=== PATIENT | male | born 1960 | race Caucasian/White ===

== ENCOUNTER 2019-03-30 16:16 | Emergency (ER) | payer OTHER ==
[2019-03-30 16:22] VITALS: TEMP 98.6
[2019-03-30] MEDS ORDERED: methylPREDNISolone SOD SUCCI 125 MG/2 ML VIAL IM ONE (16:32)
--- NOTE | 2019-03-30 17:02 | ED ---
Allergic Reaction HPI - General Chief complaint: Allergic Reaction Stated complaint: Allergic Reaction Time Seen by Provider: 03/30/19 16:24 Source: patient Mode of arrival: ambulatory Limitations: no limitations - History of Present Illness Initial Comments: Patient is a 59-year-old male presenting to the emergency Department with complaints of an ALLERGIC reaction that started a few hours prior to arrival. Patient states he thinks he is ALLERGIC to something in cheddar cheese that he ate last night. Patient states he feels like his top lip is swelling along with his cheeks and eyes are getting red. Patient states he took 100 mg of Benadryl 1 hour prior to arrival. Patient states he has had this reaction in the past. Patient has past medical history of hypertension, diabetes, one kidney. Patient denies chest pain, difficulty in breathing, shortness of breath, nausea, vomiting, hives at this time. Patient has no other complaints at this time. Upon arrival to ER, BP was elevated at 182/95, rest of vitals normal. Patient states he did take his blood pressure medication this morning. - Related Data Previous Rx's Medication Instructions Recorded predniSONE 20 mg PO BID 3 Days #6 tab 03/30/19 Allergies Allergy/AdvReac Type Severity Reaction Status Date / Time aspirin Allergy Anaphylaxis Verified 03/30/19 16:22 NSAIDS (Non-Steroidal Allergy Anaphylaxis Verified 03/30/19 16:22 Anti-Inflamma Review of Systems ROS Statement: Those systems with pertinent positive or pertinent negative responses have been documented in the HPI. ROS Other: All systems not noted in ROS Statement are negative. Past Medical History Past Medical History: COPD, Diabetes Mellitus Additional Past Medical History / Comment(s): Kidney History of Any Multi-Drug Resistant Organisms: None Reported Past Surgical History: Orthopedic Surgery Additional Past Surgical History / Comment(s): Kidney Past Psychological History: No Psychological Hx Reported Smoking Status: Current every day smoker Past Alcohol Use History: None Reported Past Drug Use History: None Reported General Exam - General Exam Comments Initial Comments: GENERAL: Well-appearing, well-nourished and in no acute distress. HEAD: Atraumatic, normocephalic. EYES: Pupils equal round and reactive to light, extraocular movements intact. Mild irritation noted to bilateral eyes as well as mild swelling to bilateral upper eyelids. ENT: TMs normal, nares patent, oropharynx clear without exudates. Moist mucous membranes. NECK: Normal range of motion, supple without lymphadenopathy or JVD. LUNGS: Breath sounds clear to auscultation bilaterally and equal. No wheezes rales or rhonchi. HEART: Regular rate and rhythm without murmurs, rubs or gallops. ABDOMEN: Soft, nontender, normoactive bowel sounds. No guarding, no rebound. No masses appreciated. : Deferred EXTREMITIES: Normal range of motion, no pitting or edema. No clubbing or cyanosis. NEUROLOGICAL: Cranial nerves II through XII grossly intact. Normal speech, normal gait. PSYCH: Normal mood, normal affect. SKIN: Warm, Dry, normal turgor, no rashes or lesions noted. Limitations: no limitations Course Vital Signs 03/30/19 03/30/19 03/30/19 16:19 16:40 17:54 Temperature 98.6 F Pulse Rate 72 70 Respiratory 20 18 16 Rate Blood Pressure 182/95 180/85 O2 Sat by Pulse 99 98 Oximetry Medical Decision Making - Medical Decision Making Patient is a 5-year-old male presenting with a possible ALLERGIC reaction to food that he ate last night. Patient took 100 mg of Benadryl one hour prior to arrival to ER. Patient denies trouble breathing, chest pain, rashes. Patient is having mild upper lip swelling as well as bilateral eye irritation and very mild swelling to the upper eyelids. Patient was given 125 Soma drawl and observed for another hour. Patient reports improvement in symptoms and is requesting for discharge. Patient will be given short course of steroids for the next few days and will follow-up with his PCP. Patient is agreeable with this plan of care. Return parameters were discussed with the patient and he verbalized understanding. Case discussed with Dr. Momin. Disposition Clinical Impression: Food allergy Disposition: HOME SELF-CARE Condition: Stable Instructions (If sedation given, give patient instructions): Food Allergy (ED) Additional Instructions: Please return to the Emergency Department if symptoms worsen or any other concerns. Follow-up with PCP in 2-3 days. Prescriptions: predniSONE 20 mg PO BID 3 Days #6 tab Is patient prescribed a controlled substance at d/c from ED?: No Referrals: Korey Foreman MD [Primary Care Provider] - 1-2 days
[2019-03-30 17:59] VITALS: BP 180/85; PULSE 70; RESP 16
== END 2019-03-30 17:54 | disposition home or self-care (01) ==
LOC: EC 16:16
DX: T78.1XXA Other adverse food reactions, not elsewhere classified, initial encounter (principal); I10 Essential (primary) hypertension; F17.200 Nicotine dependence, unspecified, uncomplicated; Z88.6 Allergy status to analgesic agent
CPT/HCPCS: 99283; 96372; J2930

== ENCOUNTER 2021-03-31 03:28 | Inpatient (IN) | payer OTHER ==
[2021-03-31] MEDS ORDERED: NITROGLYCERIN SL TABS 0.4 MG TAB SUBLINGUAL PRN ×4 (03:30→07:00)
[2021-03-31] MEDS ORDERED: HEPARIN SODIUM 1,000 UN/ML (10ML VL) IV ONE (03:30)
[2021-03-31] MEDS ORDERED: HEPARIN SOD,PORK IN 0.45% NACL 25,000 UNIT in 0.45% NACL 1 250ML.BAG IV SCH ×2 (03:30→07:15)
[2021-03-31] MEDS ORDERED: LABETALOL 5 MG/ML VIAL MDV IVP STA (03:33)
[2021-03-31] MEDS ORDERED: AMIODARONE 360 MG in DEXTROSE 5% IN WATER 200 ML IV ONE ×2 (03:33)
--- NOTE | 2021-03-31 03:36 | ED ---
Chest Pain HPI - General Stated Complaint: STEMI Time Seen by Provider: 03/31/21 03:29 Source: RN notes reviewed, old records reviewed Mode of arrival: EMS Limitations: no limitations - History of Present Illness Initial Comments: This is a 59-year-old male to the emergency department today. Patient presents today for evaluation regarding diagnosis of ST elevated GA, patient comes in as a transfer from outside facility for ST elevated GA. Patient was there with chest pain 20 minutes prior to his arrival here. At this point patient is having persistent chest pain elevated heart rate and did have episodes of ventricular tachycardia. Patient's blood pressure also elevated a shunt does suffer from COPD and diabetes MD Complaint: chest pain -: hour(s) (1) Onset: during rest Pain Location: substernal, left chest Pain Radiation: LUE Severity: severe Severity scale (1-10): 10 Quality: tightness, heaviness Consistency: constant Improves With: nothing Worsens With: nothing Anginal Symptoms: diaphoresis, sense of impending doom Other Symptoms: palpitations Treatments Prior to Arrival: none - Related Data Previous Rx's Medication Instructions Recorded predniSONE [Deltasone] 20 mg PO BID 3 Days #6 tab 03/30/19 Allergies Allergy/AdvReac Type Severity Reaction Status Date / Time aspirin Allergy Anaphylaxis Verified 03/30/19 16:22 NSAIDS (Non-Steroidal Allergy Anaphylaxis Verified 03/30/19 16:22 Anti-Inflamma Review of Systems ROS Statement: Those systems with pertinent positive or pertinent negative responses have been documented in the HPI. ROS Other: All systems not noted in ROS Statement are negative. Past Medical History Past Medical History: COPD, Diabetes Mellitus Additional Past Medical History / Comment(s): Kidney History of Any Multi-Drug Resistant Organisms: None Reported Past Surgical History: Orthopedic Surgery Additional Past Surgical History / Comment(s): Kidney Past Psychological History: No Psychological Hx Reported Past Alcohol Use History: None Reported Past Drug Use History: None Reported General Exam General appearance: alert, in no apparent distress, anxious Head exam: Present: atraumatic, normocephalic, normal inspection Eye exam: Present: normal appearance, PERRL, EOMI. Absent: scleral icterus, conjunctival injection, periorbital swelling ENT exam: Present: normal exam, mucous membranes moist Neck exam: Present: normal inspection. Absent: tenderness, meningismus, lymphadenopathy Respiratory exam: Present: normal lung sounds bilaterally. Absent: respiratory distress, wheezes, rales, rhonchi, stridor Cardiovascular Exam: Present: regular rate, normal rhythm, normal heart sounds. Absent: systolic murmur, diastolic murmur, rubs, gallop, clicks GI/Abdominal exam: Present: soft, normal bowel sounds. Absent: distended, tenderness, guarding, rebound, rigid Extremities exam: Present: normal inspection, full ROM, normal capillary refill. Absent: tenderness, pedal edema, joint swelling, calf tenderness Back exam: Present: normal inspection Neurological exam: Present: alert, oriented X3, CN II-XII intact Psychiatric exam: Present: normal affect, normal mood Skin exam: Present: warm, dry, intact, normal color. Absent: rash Course - Reevaluation(s) Reevaluation #1: 03/31/21 03:35 Medical records reviewed 03/31/21 03:35 Spoke with transferring physician regarding patient 03/31/21 03:35 Internal Medicine Physician Assistant was activated prior to patient arrival Reevaluation #2: 03/31/21 03:35 Patient family informed results and questions have been answered - Consultations Consultation #1: Spoke with cardiology regarding ST elevated GA, Chest Pain MDM - MDM 61 male DF for evaluation accepted in transfer for acute ST elevated GA. Patient did have runs of ventricular tachycardia, patient still presented with steady L pain currently controlled prior to admission Critical Care Time Critical Care Time: Yes Total Critical Care Time: 31 Disposition Clinical Impression: STEMI (ST elevation myocardial infarction), Hypertension, Ventricular tachycardia Disposition: ADMITTED IP TO THIS [facility] Condition: Serious Referrals: None,Stated [REFERRING] - 1-2 days
[2021-03-31] MEDS ORDERED: SODIUM CHLORIDE 0.9% 1,000 ML IV STA (03:39)
[2021-03-31] MEDS: MORPHINE SULFATE 4 MG/ML SYRINGE IV PRN (03:39)
[2021-03-31 03:52] LABS: Basophils # (A) 0.1 k/uL (0-0.2); Basophils % (A) 1 %; Eosinophils # (A) 0.2 k/uL (0-0.7); Eosinophils % (A) 2 %; HCT 39.5 % (39.0-53.0); HGB 13.3 gm/dL (13.0-17.5); Lymphocytes # (A) 4.6 k/uL (1.0-4.8); Lymphocytes % (A) 29 %; MCH 30.7 pg (25.0-35.0); MCHC 33.6 g/dL (31.0-37.0); MCV 91.5 fL (80.0-100.0); Mean Platelet Volume 8.7; Monocytes # (A) 0.7 k/uL (0-1.0); Monocytes % (A) 5 %; Neutrophils # (A) 9.6 k/uL (1.3-7.7); Neutrophils % (A) 62 %; Platelet Count 248 k/uL (150-450); RBC 4.31 m/uL (4.30-5.90); RDW 13.2 % (11.5-15.5); WBC 15.5 k/uL (3.8-10.6)
[2021-03-31] MEDS ORDERED: HYDROmorphone 1 MG/ML 1 ML SYRINGE ONE (03:53)
[2021-03-31] MEDS ORDERED: HEPARIN SODIUM 1,000 UN/ML (10ML VL) ONE ×2 (03:53→06:32)
[2021-03-31] MEDS ORDERED: FLUMAZENIL 0.1 MG/ML 5 ML VIAL IVP ONE (04:01)
[2021-03-31] MEDS ORDERED: LIDOCAINE 1% INJ 10MG/ML (20 ML MDV) SQ ONE ×2 (04:02→05:27)
[2021-03-31] MEDS: MIDAZOLAM 2 MG/2 ML VIAL IV ONE ×2 (04:02→04:26)
[2021-03-31] MEDS ORDERED: HYDROmorphone 1 MG/ML 1 ML SYRINGE IVP ONE (04:03)
[2021-03-31 04:09] LABS: Albumin 3.6 g/dL (3.5-5.0); Calcium 8.4 mg/dL (8.4-10.2); Magnesium 1.6 mg/dL (1.6-2.3); Potassium 3.3 mmol/L (3.5-5.1); Total Bilirubin 0.4 mg/dL (0.2-1.3); Total Protein 6.8 g/dL (6.3-8.2)
[2021-03-31] MEDS ORDERED: VERAPAMIL SYRINGE (5 MG/10 ML) INTRAARTER ONE (04:09)
[2021-03-31 04:11] LABS: Partial Thromboplastin Time 52.5 sec (22.0-30.0); Prothrombin Time 11.1 sec (9.0-12.0)
[2021-03-31] MEDS ORDERED: IV FLUID CONTINUATION 1,000 ML IV ONE (04:13)
[2021-03-31] MEDS ORDERED: ONDANSETRON 4 MG/2 ML VIAL ONE ×2 (04:27→05:35)
[2021-03-31] MEDS ORDERED: ONDANSETRON 4 MG/2 ML VIAL IVP ONE ×2 (04:34→06:02)
[2021-03-31] MEDS ORDERED: TICAGRELOR 90 MG TAB ONE (04:35)
[2021-03-31] MEDS ORDERED: TIROFIBAN BOLUS 12.5MG/250 ML BAG IV ONE (04:35)
[2021-03-31] MEDS ORDERED: TIROFIBAN 12.5MG-250ML NS 250 ML IV ONE (04:36)
[2021-03-31] MEDS ORDERED: TICAGRELOR 90 MG TAB PO ONE (04:36)
[2021-03-31] MEDS ORDERED: IOPAMIDOL-370 125ML BTL INJ ONE ×2 (04:37→05:59)
[2021-03-31] MEDS ORDERED: ATROPINE SULFATE 0.1 MG/ML 10ML SYRINGE IV PRN ×3 (04:51→07:00)
[2021-03-31] MEDS ORDERED: ZOLPIDEM 5 MG TAB PO PRN ×3 (04:51→07:00)
[2021-03-31] MEDS ORDERED: RX INFO: IV CONTRAST WAS GIVEN 1 EACH MISC MISCELLANE PRN ×3 (04:51→07:00)
[2021-03-31] MEDS ORDERED: MAG HYDROX/AL HYDROX/SIMETH 30 ML CUP PO PRN ×3 (04:51→07:00)
[2021-03-31] MEDS ORDERED: SODIUM CHLORIDE 0.9% 1,000 ML IV SCH ×3 (05:00→06:15)
[2021-03-31] MEDS ORDERED: MORPHINE SULFATE 4 MG/ML SYRINGE ONE (05:08)
[2021-03-31] MEDS ORDERED: FUROSEMIDE 10 MG/ML 4 ML VIAL ONE (05:08)
[2021-03-31] MEDS ORDERED: AMIODARONE IN DEXTROSE,ISO-OSM 360 MG/200 ML PLAST..BAG IV ONE (05:10)
[2021-03-31] MEDS ORDERED: LIDOCAINE 1% INJ 10MG/ML (20 ML MDV) ONE (05:14)
[2021-03-31] MEDS: MORPHINE SULFATE 4 MG/ML SYRINGE IV ONE ×2 (05:15→05:28)
[2021-03-31] MEDS ORDERED: FUROSEMIDE 10 MG/ML 4 ML VIAL IV ONE (05:15)
[2021-03-31] MEDS ORDERED: HYDROmorphone 0.5 MG/0.5 ML SYRINGE IVP ONE (05:59)
--- NOTE | 2021-03-31 06:14 | P.CRDCN ---
History of Present Illness Consult date: 03/31/21 Chief complaint: Chest discomfort History of present illness: This is a 61-year-old gentleman with diabetes and chronic kidney disease, he GFR is unknown at this point, the patient donated his right kidney to his sister, as well as history of smoking presented initially to the emergency department at [facility] with a chest discomfort. The EKG revealed anterolateral ST patient myocardial infarction. Subsequently the patient was transferred to [facility]. He was in his usual state of health until early or today when he was From sleep complaining of chest discomfort. The patient underwent an emergent heart catheterization and that revealed critical disease involving the proximal left anterior descending artery with a thrombotic lesion. He underwent an aspiration thrombectomy and subsequently successful stenting of the LAD with a good angiographic results and JOSE J-3 flow. He also was found to have chronic total occlusion of the right coronary artery. Also he is left sided filling pressure was quite elevated with LVEDP of 35 mmHg. The procedure was completed without any complication from right radial approach. Postprocedure the patient continues to have chest discomfort, as a matter of fact his chest discomfort did not improve, and beside that he continues to have significant ST segment elevation anteriorly, clearly worse than when he presented first time. Also his pressure dropped down with a systolic pressure in the 80s and some in the 70s. He was very uncomfortable. Also he was experie ncing cardiac arrhythmia in terms off nonsustained ventricular tachycardia. Giving all the above I decided to axis the groin because the sheath from right radial approach was pulled out. I did do selective left coronary angiogram again and that revealed patent stent in the LAD with sluggish flow and what it seems to be JOSE J [address] to [address] an Impella. He underwent successful placement of Impella CP from right groin approach. Past Medical History Past Medical History: COPD, Diabetes Mellitus Additional Past Medical History / Comment(s): Kidney History of Any Multi-Drug Resistant Organisms: None Reported Past Surgical History: Orthopedic Surgery Additional Past Surgical History / Comment(s): Kidney Past Psychological History: No Psychological Hx Reported Past Alcohol Use History: None Reported Past Drug Use History: None Reported Medications and Allergies Home Medications Medication Instructions Recorded Confirmed Type predniSONE [Deltasone] 20 mg PO BID 3 Days #6 tab 03/30/19 Rx Allergies Allergy/AdvReac Type Severity Reaction Status Date / Time aspirin Allergy Anaphylaxis Verified 03/31/21 03:37 NSAIDS (Non-Steroidal Allergy Anaphylaxis Verified 03/31/21 03:37 Anti-Inflamma Physical Exam Vitals: Vital Signs Temp Pulse Pulse Resp BP Pulse Ox 03/31/21 03:39 106 H 20 152/113 96 03/31/21 03:35 105 H 102 H 20 156/110 98 03/31/21 03:30 97.8 F 102 H 20 150/111 98 Intake and Output 03/30/21 03/30/21 03/31/21 14:59 22:59 06:59 Intake Total 200 Balance 200 Intake: IV 200 Other: Weight 111.13 kg - Constitutional General appearance: no acute distress - Respiratory Respiratory: bilateral: diminished - Cardiovascular Rhythm: regular Heart sounds: normal: S1, S2 Results 03/31/21 03:25 03/31/21 03:25 Cardiac Enzymes 03/31/21 03/31/21 Range/Units 03:25 03:25 AST 37 (17-59) U/L Troponin I 0.048 H* (0.000-0.034) ng/mL Coagulation 03/31/21 Range/Units 03:25 PT 11.1 (9.0-12.0) sec APTT 52.5 H (22.0-30.0) sec CBC 03/31/21 Range/Units 03:25 WBC 15.5 H (3.8-10.6) k/uL RBC 4.31 (4.30-5.90) m/uL Hgb 13.3 (13.0-17.5) gm/dL Hct 39.5 (39.0-53.0) % Plt Count 248 (150-450) k/uL Comprehensive Metabolic Panel 03/31/21 Range/Units 03:25 Sodium 140 (137-145) mmol/L Potassium 3.3 L (3.5-5.1) mmol/L Chloride 108 H (98-107) mmol/L Carbon Dioxide 17 L (22-30) mmol/L BUN 22 H (9-20) mg/dL Creatinine 2.05 H (0.66-1.25) mg/dL Glucose 232 H (74-99) mg/dL Calcium 8.4 (8.4-10.2) mg/dL AST 37 (17-59) U/L ALT 30 (4-49) U/L Alkaline Phosphatase 107 (38-126) U/L Total Protein 6.8 (6.3-8.2) g/dL Albumin 3.6 (3.5-5.0) g/dL Intake and Output 03/30/21 03/30/21 03/31/21 14:59 22:59 06:59 Intake Total 200 Balance 200 Intake: IV 200 Other: Weight 111.13 kg Patient Weight 03/31/21 06:59 Weight 111.13 kg 03/31/21 03:25 03/31/21 03:25 Assessment and Plan Assessment: Assessment #[address] elevation myocardial infarction #2 status post a stenting of the LAD as described above #3 cardiogenic shock #4 diabetes type 2 #5 chronic kidney disease #6 significant history of smoking Plan #1 the patient was given Brilinta. #2 he does have anaphylaxis to aspirin. He might benefit from aspirin desensitization #3 continue heparin IV as far as the Impella into place #4 high intensity statin #5 start the patient on metoprolol as well as lisinopril #6 obtain an echocardiogram was Doppler
[2021-03-31] MEDS ORDERED: HEPARIN SOD,PORK IN 0.45% NACL 25,000 UNIT in 0.45% NACL 1 250ML.BAG IV ONE (06:30)
[2021-03-31] MEDS: HEPARIN SODIUM,PORCINE 12,500 UNIT in DEXTROSE 5% IN WATER 500 ML IV SCH ×2 (06:45)
[2021-03-31 07:04] LABS: Glucose,Whole Blood 370 mg/dL (75-99)
[2021-03-31 08:13] LABS: Glucose,Whole Blood 345 mg/dL (75-99)
[2021-03-31 08:28] LABS: Basophils % (A) 0 %; Eosinophils # (A) 0.1 k/uL (0-0.7); Eosinophils % (A) 1 %; HCT 43.2 % (39.0-53.0); Lymphocytes # (A) 1.3 k/uL (1.0-4.8); Lymphocytes % (A) 6 %; MCH 30.6 pg (25.0-35.0); MCHC 32.5 g/dL (31.0-37.0); MCV 94.2 fL (80.0-100.0); Mean Platelet Volume 8.7; Monocytes # (A) 0.7 k/uL (0-1.0); Monocytes % (A) 4 %; Neutrophils % (A) 89 %; Platelet Count 265 k/uL (150-450); RBC 4.59 m/uL (4.30-5.90); RDW 13.3 % (11.5-15.5); WBC 20.2 k/uL (3.8-10.6)
[2021-03-31 08:59] LABS: INR 1.1 (<1.2); Prothrombin Time 11.2 sec (9.0-12.0)
[2021-03-31] MEDS ORDERED: ASPIRIN 81 MG PO SCH (09:00)
[2021-03-31] MEDS ORDERED: METOPROLOL TARTRATE 25 MG TAB PO SCH ×3 (09:00)
[2021-03-31] MEDS ORDERED: lisinopriL 10 MG TAB PO SCH (09:00)
[2021-03-31] MEDS ORDERED: TICAGRELOR 90 MG TAB PO SCH ×2 (09:00)
[2021-03-31 09:19] LABS: Calcium 8.4 mg/dL (8.4-10.2)
[2021-03-31 09:20] LABS: Magnesium 1.8 mg/dL (1.6-2.3); Potassium 4.5 mmol/L (3.5-5.1)
[2021-03-31] MEDS: INSULIN ASPART (NovoLOG) 100 UNIT/ML VIAL SQ SCH ×5 (09:30→22:26)
[2021-03-31] MEDS ORDERED: Magnesium Replacement Protocol 1 EACH MISC MISCELLANE PRN (09:32)
[2021-03-31 09:33] LABS: Partial Thromboplastin Time 170.3 sec (22.0-30.0)
[2021-03-31] MEDS: TICAGRELOR 90 MG TAB PO SCH ×2 (10:05→20:26)
--- NOTE | 2021-03-31 10:08 | CC ---
CARDIAC CATHETERIZATION REPORT CARDIAC CATHETERIZATION AND PERCUTANEOUS CORONARY INTERVENTION: DATE OF SERVICE: 03/31/2021 PERFORMING PHYSICIAN: Clark Deal M.D. PROCEDURES PERFORMED: 1. Selective right and left coronary angiogram. 2. Aspiration thrombectomy from the left anterior descending artery using Walpole catheter. 3. Successful stenting of the proximal LAD using a 4.0 x 18 mm Xience drug- eluting stent with excellent angiographic results and reduction of stenosis from 99.9% to 0%. 4. Left heart catheterization. INDICATION: This is a 61-year-old gentleman with diabetes, hypertension, dyslipidemia and chronic kidney disease. He donated his kidney to his sister. He woke up from sleep complaining of chest discomfort. EKG in the emergency department revealed acute anterior ST- elevation myocardial infarction. APPROACH: Right radial artery. COMPLICATIONS: None. LEVEL OF SEDATION: Moderate, with sedation length of 32 minutes. [id number] to balloon was 94 minutes. PROCEDURE DESCRIPTION: After obtaining informed consent, the patient was brought to the cardiac medical laboratory manager. The right radial artery was cannulated using micropuncture technique. The micropuncture wire passed easily. Then I placed a 6-Yi sheath in the right radial artery. Two milligrams of verapamil IA was given. Anticoagulation was initiated using heparin given to the patient at the beginning of the procedure right after the access; 10,000 units of heparin IV. Selective right and left coronary angiogram was performed with JR4 and JL3.5 guiding catheters. After that I did intervene on the LAD. Please see separate paragraph for that. After that I did leave heart catheterization using 5-Yi pigtail catheter. SELECTIVE CORONARY ANGIOGRAM: 1. The RCA is a large-caliber vessel and it is a dominant vessel. The RCA is chronically occluded in the proximal portion and fills by collateral from the left coronary system. 2. The left main is very short. It bifurcates into left circumflex and left anterior descending artery. 3. The left circumflex is a large-caliber vessel. It is a nondominant vessel. The left circumflex is angiographically normal. It gives rise to first and second obtuse marginal branches. The first obtuse marginal branch is a medium- caliber vessel with mild disease in the ostium. The second OM branch is a large- caliber vessel with mild disease only. 4. The LAD. The proximal LAD right after the bifurcation from the left main has a thrombotic lesion that appeared to be in the range of 99.9%. The LAD in the mid and distal portions appeared to be angiographically normal. The LAD gives rise to 3 diagonal branches. The first diagonal branch has a lesion that appeared to be in the range of 70% to 80%. The second and third diagonals appeared to be angiographically normal. PERCUTANEOUS CORONARY INTERVENTION OF THE LAD: Anticoagulation, as I mentioned earlier, was initiated and completed using heparin. Subsequently I did engage the left main using a JL3.5 guiding catheter. I did wire the LAD using a run-through wire. After that, aspiration thrombectomy from the LAD was performed using the Walpole catheter with extraction of multiple small white clots. After that I did stenting of the LAD using a 4.0 x 18 mm Xience drug- eluting stent where the stent was positioned under fluoroscopic guidance and deployed under 14 atmospheres for 20 seconds. The following angiogram showed excellent angiographic results with JOSE J-3 in the LAD. HEMODYNAMICS: The LVEDP was 35 mmHg without significant gradient across the aortic valve. CONCLUSION: 1. Acute anterolateral [place]-[id number]-[id number] myocardial infarction. 2. Critical disease involving the proximal left anterior descending artery with a thrombotic lesion. 3. Chronic total occlusion of the right coronary artery. 4. Severely elevated left-sided filling pressure. POSTPROCEDURE MANAGEMENT: 1. The patient was given Brilinta. 2. Please note that the patient does have ANAPHYLAXIS TO ASPIRIN. 3. I am going to keep him on Aggrastat at this point. 4. We will consult an client executive for aspirin desensitization. 5. Obtain an echocardiogram with Doppler. 6. Aggressive cholesterol control. 7. Risk factor modifications. 8. Follow up with the patient. MMODL / IJN: [id number] / ANUP
[2021-03-31] MEDS ORDERED: IPRATROPIUM-ALBUTEROL 3 ML NEB INHALATION PRN (10:27)
--- NOTE | 2021-03-31 10:34 | P.NPCON ---
History of Present Illness - Reason for Consult acute renal failure, chronic renal failure - History of Present Illness Reason for consultation: Acute kidney injury on chronic kidney disease History of present illness: Patient is a 61-year-old male seen in renal consultation for acute kidney injury on chronic kidney disease. Patient has chronic kidney disease stage IIIB secondary to solitary right kidney as well as diabetic kidney disease. Patient is a kidney donor. Patient's creatinine in April 2018 was 1.8. This admission creatinine is stable in the range of 2-2.1. Patient presented to the hospital with chest pain that began yesterday evening. He was noted to have ST elevated myocardial infarction. He was also noted to be in V. tach. 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 He also underwent Impella placement. He is currently maintained on amiodarone drip as well as heparin drip. He is receiving normal saline at 75 mL an hour. He did receive a dose of IV Lasix 20 mg this morning as well. He's currently awake but tired. Blood pressure is stable. Trivedi catheter could not be placed. He is voiding on his own. No hematuria. No current chest pain. He is on 6 L nasal cannula. Vital signs are stable. General: The patient appeared well nourished and normally developed. HEENT: Head exam is unremarkable. LUNGS: Breath sounds decreased. HEART: Rate and Rhythm are regular. ABDOMEN: Soft, no distention. EXTREMITITES: Trace edema. Past Medical History Past Medical History: COPD, Diabetes Mellitus Additional Past Medical History / Comment(s): Kidney History of Any Multi-Drug Resistant Organisms: None Reported Past Surgical History: Orthopedic Surgery Additional Past Surgical History / Comment(s): Kidney Past Psychological History: No Psychological Hx Reported Past Alcohol Use History: None Reported Past Drug Use History: None Reported Medications and Allergies Home Medications Medication Instructions Recorded Confirmed Type predniSONE [Deltasone] 20 mg PO BID 3 Days #6 tab 03/30/19 Rx Allergies Allergy/AdvReac Type Severity Reaction Status Date / Time aspirin Allergy Anaphylaxis Verified 03/31/21 03:37 NSAIDS (Non-Steroidal Allergy Anaphylaxis Verified 03/31/21 03:37 Anti-Inflamma Physical Exam Vitals: Vital Signs Temp Pulse Pulse Resp BP Pulse Ox 03/31/21 09:00 64 15 91 L 03/31/21 08:30 62 13 90 L 03/31/21 08:00 97.5 F L 60 12 127/74 92 L 03/31/21 07:50 66 94 L 03/31/21 07:40 65 95 03/31/21 07:30 66 03/31/21 07:20 15 127/74 90 L 03/31/21 07:19 97.5 F L 03/31/21 07:10 68 12 93 L 03/31/21 07:01 26 H 85 L 03/31/21 03:39 106 H 20 152/113 96 03/31/21 03:35 105 H 102 H 20 156/110 98 03/31/21 03:30 97.8 F 102 H 20 150/111 98 Intake and Output 03/30/21 03/31/21 03/31/21 22:59 06:59 14:59 Intake Total 200 193.333 Balance 200 193.333 Intake: IV 200 175 Sodium Chloride 0.9% 1, 175 000 ml @ 75 mls/hr IV . [id number] [facility] Rx#:[id number] Intake, IV Titration 18.333 Amount Heparin Sod,Pork in 0.45% 18.333 NaCl 25,000 unit In 0.45 % NaCl 1 250ml.bag @ Per Protocol IV .Q0M [facility] Rx#: [id number] Other: Weight 111.13 kg ABP, PAP, CO, CI - Last 8 Hours Arterial Blood Pressure 105/81 Arterial Blood Pressure 113/87 Arterial Blood Pressure 109/91 Arterial Blood Pressure 119/93 Arterial Blood Pressure 154/84 Arterial Blood Pressure 115/92 Arterial Blood Pressure 113/85 Arterial Blood Pressure 112/83 Results - Lab Results Most recent lab results Calcium 8.4 mg/dL (8.4-10.2) 03/31/21 08:15 Magnesium 1.8 mg/dL (1.6-2.3) 03/31/21 08:15 03/31/21 08:15 03/31/21 08:15 Assessment and Plan Plan: Assessment: 1. Acute kidney injury secondary to ATN secondary to acute CT and hemodynamic instability. Creatinine 2.13 today. 2. Chronic kidney disease stage IIIB secondary to solitary right kidney and diabetic kidney disease. Creatinine in April 2018 was near 1.8. 3. Status post left nephrectomy. Patient is a kidney donor. 4. Metabolic acidosis secondary to acute kidney injury and IV fluids. 5. Hypokalemia from poor intake and diuresis. Replaced. Better. 6. Diabetes. 7. STEMI status post cardiac catheterization with LAD stenting as well as Impella placement. Plan: Maintain normal saline. Avoid nephrotoxins. Add po bicarb. Continue to monitor renal function and urine output. Monitor for contrast-induced acute kidney injury. Thank you for the consultation. I will continue to follow the patient with you during his hospital stay.
--- NOTE | 2021-03-31 10:44 | PCN ---
PROCEDURE NOTE DATE OF SERVICE: 03/31/2021 PERFORMING PHYSICIAN: Clark Deal M.D. PROCEDURES PERFORMED: 1. Successful placement of Impella CP in the left ventricle from right groin approach. 2. Selective left coronary angiogram. 3. Right common femoral artery angiogram. INDICATION: This is a 61-year-old gentleman who presented to the hospital earlier today with acute anterior ST-elevation myocardial infarction and underwent successful stenting of the left anterior descending artery. He continues to have ongoing chest discomfort and significant ST changes as well as cardiac arrhythmia. Beside that, he developed low blood pressure with a systolic pressure in the 80s and sometimes in the 70s. In light of that, I decided to perform coronary angiogram to check the status of the stent and also place an Impella in the left ventricle. APPROACH: Right common femoral artery. COMPLICATIONS: None. LEVEL OF SEDATION: Moderate, with sedation length of 39 minutes. PROCEDURE DESCRIPTION: The patient was prepped and draped again. The right common femoral artery was cannulated using micropuncture technique. The micropuncture wire passed easily. Then I placed a micropuncture sheath over the wire. I did selective right common femoral artery angiogram via the micropuncture sheath, which showed a good position of the sheath. Subsequently I did advance an 0.035 wire to the aorta. Two Perclose devices were deployed in the 10 o'clock and 2 o'clock positions. Subsequently I did place an 8- Omani dilator and changed my 0.035 regular wire for an 0.035 stiff wire. Subsequently I placed a 14-Omani sheath over the 0.035 stiff wire. After that I crossed the aortic valve using an 0.035 wire with adjunctive use of pigtail catheter. Subsequently the pigtail catheter was advanced to the left ventricle. The wire was pulled out. Then I placed the Impella wire, which was an 0.018 wire, through the pigtail. The pigtail was pulled out and the wire was left in the LV. After prepping the Impella, the Impella was advanced over the 0.018 wire to the left ventricle. Subsequently the Impella was connected and turned on. By the end, I did check the Doppler signal, pulse in the AT and PT in the right foot. I was able to hear signal. I did in the beginning selective left coronary angiogram which revealed patent stent in the LAD with JOSE J-2 flow. POSTPROCEDURE MANAGEMENT: 1. Continue the current medical regimen. 2. Try to wean the patient from the Impella. 3. Continue to monitor the circulation in the right leg. 4. Follow up with the patient. SPENCER / MIREYA: [id number] /
[2021-03-31] MEDS: METOCLOPRAMIDE 5 MG/ML 2 ML VIAL IVP PRN ×2 (10:49→19:15)
--- NOTE | 2021-03-31 10:55 | ECHOF ---
Referral Reason:Placement of Left Ventricular Assist Device MEASUREMENTS -------- HEIGHT: 175.3 cm WEIGHT: 111.1 kg BP: IVSd: 2.7 cm (0.6 - 1.1) LVIDd: 4.3 cm (3.9 - 5.3) LVPWd: 1.4 cm (0.6 - 1.1) IVSs: 2.6 cm LVIDs: 3.7 cm LVPWs: 1.9 cm MV E Giuliano: 0.38 m/s MV DecT: 199 ms MV A Giuliano: 0.77 m/s MV E/A Ratio: 0.49 FINDINGS -------- This was a technically difficult study with suboptimal views. The cavity size is decreased. There is severe concentric left ventricular hypertrophy. There is s evere global hypokinesis of LV . Left Ventricular assistant boiler operator device. Measuring 3.2 cm. The right ventricle is normal in size. , and the LA measures {LA Diam}. The right atrium was not well visualized. Aortic valve is trileaflet and is mildly thickened. The mitral valve is normal. The mitral valve leaflets are mildly thickened. Mild mitral regurgita tion is present. The tricuspid valve appears structurally normal. Mild tricuspid regurgitation present. Right vent ricular systolic pressure is normal at < 35 mmHg. The pulmonic valve was not well visualized. The aortic root size is normal. The inferior vena cava is mildly dilated. There is no pericardial effusion. CONCLUSIONS -------- 1. The cavity size is decreased. 2. There is severe concentric left ventricular hypertrophy. 3. There is severe global hypokinesis of LV . 4. Left Ventricular assistant boiler operator device. Measuring 3.2 cm. 5. Aortic valve is trileaflet and is mildly thickened. 6. The mitral valve leaflets are mildly thickened. 7. Mild mitral regurgitation is present. 8. Mild tricuspid regurgitation present. 9. The inferior vena cava is mildly dilated. 10. There is no pericardial effusion. BORING MACHINE FEEDER: Kimberly Young RDCS
[2021-03-31] MEDS: METOPROLOL TARTRATE 25 MG TAB PO SCH ×2 (10:57→20:26)
[2021-03-31] MEDS: AMIODARONE 450 MG in DEXTROSE 5% IN WATER 250 ML IV SCH ×4 (10:59→20:16)
[2021-03-31 11:22] LABS: Glucose,Whole Blood 306 mg/dL (75-99)
--- NOTE | 2021-03-31 11:24 | P.HPIM ---
History of Present Illness H&P Date: 03/31/21 Chief Complaint: chest pain 61 years old location male with past medical history of type 2 diabetes, COPD, chronic kidney disease stage III secondary to solitary right kidney as well as diabetic kidney disease is 9 and creatinine 1.8, tobacco abuser, kidney donor came in to the hospital with chest discomfort at [facility]. EKG was suggestive of anterolateral ST CO and was transferred to [facility]. Patient underwent emergent heart catheter revealed proximal LAD occlusion status post thrombectomy and stenting of LAD by Dr. Christiansen. Patient also found to have chronic total occlusion of the right coronary artery. Patient continued to have chest discomfort postprocedure with significant ST segment elevation anteriorly. His blood pressure dropped and was noted to be in nonsustained V. tach and an Impala was placed through the right groin approach. Patient was evaluated in the ICU continued to have intermittent chest pain associated with nausea and vomiting. Patient's emesis was coffee ground in color. He denies any shortness of breath or abdominal pain. Patient denies any history of gastritis or alcohol abuse in the past. Vitals were reviewed patient is afebrile pulse 62 respiratory rate 19 blood pressure 116/94 and oxygen saturation 94% on 6 L. Labs reviewed patient has a leukocytosis of 15 which increased to 20 this morning. Sodium 140 potassium 3.3 status post repletion, chloride 108 bicarb 17 BUN 22 creatinine 2 glucose ranging from 232 to 375 Troponin elevated 0.04 date increased to 551 proBNP 569 albumin 3.6. EKG 03/31 suggestive of anterior infarct sinus tachycardia and right bundle branch block. Echocardiogram suggestive of severe concentric left ventricle hypertrophy with severe global hypokinesis of left ventricle. Left ventricular assist device noted EF not calculated ROS Constitutional: Denies chills, Denies fever, endorses lethargy and malaise, Denies poor appetite, Denies weakness, Denies weight loss Eyes: denies decreased vision, denies diplopia, denies discharge, denies pain Ears: deny: decreased hearing Ears, nose, mouth and throat: Denies dental pain, Denies headache, Denies nasal discharge, Denies nose pain Cardiovascular: Endorses chest pain, endorses decreased exercise tolerance, Denies edema, Denies high blood pressure, Denies irregular heart beat, Denies palpitations, Denies paroxysmal nocturnal dyspnea, Denies rapid heart beat, Denies shortness of breath Respiratory: Denies congestion, Denies cough, Denies cough with sputum, Denies dyspnea, Denies home oxygen, Denies wheezing Gastrointestinal: Denies abdominal pain, Denies change in bowel habits, endorses coffee ground emesis, Denies early satiety, Denies excessive gas, Denies heartburn, Denies hematemesis, Denies hematochezia, Denies loss of appetite, endorses nausea, endorses vomiting Genitourinary: Denies dysuria, Denies flank pain, Denies kidney stones, Denies menorrhagia, Denies urgency, Denies urinary frequency Musculoskeletal: Denies gait dysfunction, Denies limitation of motion, Denies morning stiffness, Denies muscle cramps Integumentary: Denies rash, Denies wounds, Denies brittle nails, Denies change i n hair/nails, Denies darkening of skin Neurological: Denies balance difficulties, Denies change in speech, Denies double vision, Denies gait dysfunction, Denies loss of vision, Denies motor disturbance, Denies numbness, Denies paralysis, Denies paresthesias, Denies seizures Psychiatric: Denies anxiety, Denies depression Endocrine: Denies excessive sweating, Denies excessive thirst, Denies high blood sugars, Denies palpitations Hematologic/Lymphatic: Denies easy bruising, Denies lymphadenopathy Social history Smokes three fourths of a pack for 40 years no alcohol no marijuana use Family history Father had a stroke and in his 70s Mother had a coronary artery disease in her 70s and Brother is doing well Sr. of kidney complication at the age of 40 Physical exam - Constitutional General appearance: cooperative, no acute distress, obese appear sedated - EENT Eyes: anicteric sclerae, PERRLA, normal appearance ENT: hearing grossly normal - Neck Neck: no lymphadenopathy, normal ROM, no other, no rigidity, no stridor, no thyromegaly - Respiratory Respiratory: bilateral: Decreased air entry negative: diminished, dullness, rales, rhonchi - Cardiovascular Rhythm: regular Heart sounds: normal: S1, S2 Abnormal Heart Sounds: no systolic murmur, no diastolic murmur, no rub, no S3 Gallop, no S4 Gallop, no click, no other - Gastrointestinal General gastrointestinal: normal bowel sounds, soft nontender - Integumentary Integumentary: no rash no hematoma noted - Neurologic Neurologic: No sensory or motor deficit - Musculoskeletal Musculoskeletal: strength equal bilaterally - Psychiatric Psychiatric: A&O x's 3, appropriate affect Assessment and plan #1 acute STEMI started on brillanta Patient has anaphylaxis to aspirin would hold off patient is not comfortable starting aspirin. Impala in place. Continue IV heparin echo ordered continue Lipitor 80 mg daily at bedtime lisinopril 2.5 mg by mouth daily metoprolol 25 twice a day continue morphine 4 mg IV every 4 hours for pain control. #2 acute kidney injury secondary to ATN secondary to acute CO continue IV fluids at 75 mL per hour.. Avoid nephrotoxic agent #3 acute nausea and vomiting Protonix initiated at 40 IV twice a day. Continue to monitor for GI bleed. Zofran initiated for nausea. Reglan added at 10 IV every 6 hours for nausea control as Zofran and is unable to hold patient's naus ea #4 diabetes type 2 uncontrolled last A1c unknown. Patient follows storekeeper steward Dr. Madhav Pritchett initiated 10 units subcu daily with insulin sliding scale to be adjusted once patient's home medications known. #5chronic kidney disease stage III be secondary to solitary right kidney and diabetic kidney disease Baseline creatinine 1.8 #6 metabolic acidosis secondary to diabetic kidney disease and acute kidney injury #7 status post left nephrectomy #8 COPD continue DuoNeb as needed for shortness of breath Pulmicort [place] at 0.5 twice a day #9 tobacco abuse patient counseled on smoking cessation would like to stop smoking #10Codestatus full code #11 DVT prophylaxis with heparin drip #12 disposition patient to be in the hospital 1-2 inpatient nights for stabilization Past Medical History Past Medical History: COPD, Diabetes Mellitus Additional Past Medical History / Comment(s): Kidney History of Any Multi-Drug Resistant Organisms: None Reported Past Surgical History: Orthopedic Surgery Additional Past Surgical History / Comment(s): Kidney Past Psychological History: No Psychological Hx Reported Past Alcohol Use History: None Reported Past Drug Use History: None Reported Medications and Allergies Home Medications Medication Instructions Recorded Confirmed Type predniSONE [Deltasone] 20 mg PO BID 3 Days #6 tab 03/30/19 Rx Allergies Allergy/AdvReac Type Severity Reaction Status Date / Time aspirin Allergy Anaphylaxis Verified 03/31/21 03:37 NSAIDS (Non-Steroidal Allergy Anaphylaxis Verified 03/31/21 03:37 Anti-Inflamma Physical Exam Vitals: Vital Signs Temp Pulse Pulse Pulse Resp BP Pulse Ox 03/31/21 10:00 62 19 94 L 03/31/21 09:49 68 03/31/21 09:30 67 10 L 94 L 03/31/21 09:00 64 15 91 L 03/31/21 08:49 68 03/31/21 08:30 62 13 90 L 03/31/21 08:00 97.5 F L 60 12 127/74 92 L 03/31/21 07:50 66 94 L 03/31/21 07:49 68 03/31/21 07:40 65 95 03/31/21 07:30 66 03/31/21 07:20 15 127/74 90 L 03/31/21 07:19 97.5 F L 03/31/21 07:10 68 12 93 L 03/31/21 07:01 26 H 85 L 03/31/21 03:39 106 H 20 152/113 96 03/31/21 03:35 105 H 102 H 20 156/110 98 03/31/21 03:30 97.8 F 102 H 20 150/111 98 Intake and Output 03/30/21 03/31/21 03/31/21 22:59 06:59 14:59 Intake Total 200 268.333 Output Total 150 Balance 200 118.333 Intake: IV 200 250 Sodium Chloride 0.9% 1, 250 000 ml @ 75 mls/hr IV . [id number] ERIC Rx#:[id number] Intake, IV Titration 18.333 Amount Heparin Sod,Pork in 0.45% 18.333 NaCl 25,000 unit In 0.45 % NaCl 1 250ml.bag @ Per Protocol IV .Q0M ERIC Rx#: [id number] Output: Urine 150 Other: Weight 111.13 kg ABP, PAP, CO, CI - Last 8 Hours Arterial Blood Pressure 116/94 Arterial Blood Pressure 120/92 Arterial Blood Pressure 105/81 Arterial Blood Pressure 113/87 Arterial Blood Pressure 109/91 Arterial Blood Pressure 119/93 Arterial Blood Pressure 154/84 Arterial Blood Pressure 115/92 Arterial Blood Pressure 113/85 Arterial Blood Pressure 112/83 Results CBC & Chem 7: 03/31/21 08:15 03/31/21 08:15 Labs: Abnormal Lab Results - Last 24 Hours (Table) 03/31/21 03/31/21 03/31/21 Range/Units 03:25 03:25 03:25 WBC 15.5 H (3.8-10.6) k/uL Neutrophils # 9.6 H (1.3-7.7) k/uL APTT 52.5 H (22.0-30.0) sec Sodium (137-145) mmol/L Potassium 3.3 L (3.5-5.1) mmol/L Chloride 108 H (98-107) mmol/L Carbon Dioxide 17 L (22-30) mmol/L BUN 22 H (9-20) mg/dL Creatinine 2.05 H (0.66-1.25) mg/dL Glucose 232 H (74-99) mg/dL POC Glucose (mg/dL) (75-99) mg/dL Troponin I (0.000-0.034) ng/mL 03/31/21 03/31/21 03/31/21 Range/Units 03:25 07:02 08:12 WBC (3.8-10.6) k/uL Neutrophils # (1.3-7.7) k/uL APTT (22.0-30.0) sec Sodium (137-145) mmol/L Potassium (3.5-5.1) mmol/L Chloride (98-107) mmol/L Carbon Dioxide (22-30) mmol/L BUN (9-20) mg/dL Creatinine (0.66-1.25) mg/dL Glucose (74-99) mg/dL POC Glucose (mg/dL) 370 H 345 H (75-99) mg/dL Troponin I 0.048 H* (0.000-0.034) ng/mL 03/31/21 03/31/21 03/31/21 Range/Units 08:15 08:15 08:15 WBC 20.2 H (3.8-10.6) k/uL Neutrophils # 18.0 H (1.3-7.7) k/uL APTT 170.3 H* (22.0-30.0) sec Sodium (137-145) mmol/L Potassium (3.5-5.1) mmol/L Chloride (98-107) mmol/L Carbon Dioxide (22-30) mmol/L BUN (9-20) mg/dL Creatinine (0.66-1.25) mg/dL Glucose (74-99) mg/dL POC Glucose (mg/dL) (75-99) mg/dL Troponin I 551.000 H* (0.000-0.034) ng/mL 03/31/21 Range/Units 08:15 WBC (3.8-10.6) k/uL Neutrophils # (1.3-7.7) k/uL APTT (22.0-30.0) sec Sodium 136 L (137-145) mmol/L Potassium (3.5-5.1) mmol/L Chloride 108 H (98-107) mmol/L Carbon Dioxide 19 L (22-30) mmol/L BUN 24 H (9-20) mg/dL Creatinine 2.13 H (0.66-1.25) mg/dL Glucose 365 H (74-99) mg/dL POC Glucose (mg/dL) (75-99) mg/dL Troponin I (0.000-0.034) ng/mL
[2021-03-31] MEDS: MAGNESIUM SULFATE-D5W PMX 1 GM in DEXTROSE/WATER 1 100ML.BAG IVPB SCH ×2 (11:25→13:30)
[2021-03-31] MEDS: SODIUM CHLORIDE 0.9% 1,000 ML IV SCH (11:26)
[2021-03-31 12:09] LABS: Partial Thromboplastin Time 79.5 sec (22.0-30.0)
[2021-03-31 12:20] LABS: Amorphous Sediment,Urine Rare /hpf; Appearance,Urine Cloudy (Clear); Bacteria,Urine Rare /hpf; Bilirubin,Urine Negative (Negative); Blood,Urine Large (Negative); Color,Urine Yellow; Glucose,Urine (UA) 2+ (Negative); Ketones,Urine Negative (Negative); Leukocyte Esterase,Urine Negative (Negative); Mucus,Urine Rare /hpf; Nitrite,Urine Negative (Negative); Protein,Urine 3+ (Negative); RBC,Urine 3 /hpf (0-5); Specific Gravity,Urine 1.039 (1.001-1.035); Urobilinogen,Urine <2.0 mg/dL (<2.0); WBC,Urine 3 /hpf (0-5)
[2021-03-31] MEDS: PANTOPRAZOLE 40 MG/10 ML VIAL IVP SCH ×2 (12:32→20:26)
[2021-03-31] MEDS: SODIUM BICARBONATE TAB 650 MG TAB PO SCH ×2 (12:32→20:25)
[2021-03-31 14:32] LABS: Glucose,Whole Blood 286 mg/dL (75-99)
[2021-03-31 14:59] LABS: Partial Thromboplastin Time 46.9 sec (22.0-30.0)
[2021-03-31] MEDS: ONDANSETRON 4 MG/2 ML VIAL IVP PRN (16:52)
[2021-03-31 17:12] LABS: Glucose,Whole Blood 249 mg/dL (75-99)
[2021-03-31] MEDS: HEPARIN SODIUM 1,000 UN/ML (10ML VL) IV PRN ×2 (18:14→22:17)
[2021-03-31] MEDS: IPRATROPIUM-ALBUTEROL 3 ML NEB INHALATION SCH ×2 (19:14→20:59)
[2021-03-31 19:16] LABS: HCT 42.9 % (39.0-53.0); HGB 14.4 gm/dL (13.0-17.5); MCH 31.1 pg (25.0-35.0); MCHC 33.6 g/dL (31.0-37.0); MCV 92.8 fL (80.0-100.0); Platelet Count 222 k/uL (150-450); RBC 4.63 m/uL (4.30-5.90); RDW 13.5 % (11.5-15.5); WBC 20.1 k/uL (3.8-10.6)
[2021-03-31 20:16] LABS: Glucose,Whole Blood 193 mg/dL (75-99)
[2021-03-31] MEDS: ATORVASTATIN 80 MG TAB PO SCH (20:25)
[2021-03-31] MEDS: BUDESONIDE 1 MG/2 ML NEBU INHALATION SCH (20:59)
[2021-03-31] MEDS ORDERED: ATORVASTATIN 80 MG TAB PO SCH ×2 (21:00)
[2021-03-31 21:52] LABS: Partial Thromboplastin Time 36.8 sec (22.0-30.0)
[2021-03-31 22:27] LABS: Glucose,Whole Blood 187 mg/dL (75-99)
[2021-04-01] MEDS: MORPHINE SULFATE 4 MG/ML SYRINGE IV PRN ×2 (00:51→15:10)
[2021-04-01 02:03] LABS: Glucose,Whole Blood 198 mg/dL (75-99)
[2021-04-01] MEDS: INSULIN ASPART (NovoLOG) 100 UNIT/ML VIAL SQ SCH ×6 (02:10→20:36)
[2021-04-01] MEDS: SODIUM CHLORIDE 0.9% 1,000 ML IV SCH (02:41)
[2021-04-01 04:18] LABS: Basophils % (A) 0 %; Eosinophils % (A) 0 %; HCT 39.3 % (39.0-53.0); HGB 12.7 gm/dL (13.0-17.5); Lymphocytes # (A) 2.7 k/uL (1.0-4.8); Lymphocytes % (A) 13 %; MCH 29.8 pg (25.0-35.0); MCHC 32.3 g/dL (31.0-37.0); MCV 92.1 fL (80.0-100.0); Mean Platelet Volume 9.2; Monocytes % (A) 5 %; Neutrophils # (A) 16.6 k/uL (1.3-7.7); Neutrophils % (A) 81 %; Platelet Count 191 k/uL (150-450); RBC 4.27 m/uL (4.30-5.90); RDW 13.5 % (11.5-15.5); WBC 20.5 k/uL (3.8-10.6)
[2021-04-01 04:49] LABS: Partial Thromboplastin Time 49.2 sec (22.0-30.0); Prothrombin Time 10.6 sec (9.0-12.0)
[2021-04-01 05:36] LABS: Calcium 8.7 mg/dL (8.4-10.2); Magnesium 2.2 mg/dL (1.6-2.3); Potassium 4.2 mmol/L (3.5-5.1)
[2021-04-01] MEDS: BUDESONIDE 1 MG/2 ML NEBU INHALATION SCH ×2 (05:54→19:06)
[2021-04-01] MEDS: IPRATROPIUM-ALBUTEROL 3 ML NEB INHALATION SCH ×3 (05:54→19:06)
[2021-04-01] MEDS: AMIODARONE 450 MG in DEXTROSE 5% IN WATER 250 ML IV SCH ×2 (06:00)
[2021-04-01] MEDS: ONDANSETRON 4 MG/2 ML VIAL IVP PRN (06:11)
[2021-04-01 06:32] LABS: Glucose,Whole Blood 178 mg/dL (75-99)
--- NOTE | 2021-04-01 06:33 | XR ---
EXAMINATION TYPE: XR chest 1V portable DATE OF EXAM: 04/01/2021 CLINICAL HISTORY: LVAD placement. TECHNIQUE: Single AP portable upright view of the chest is obtained. COMPARISON: None FINDINGS: Catheter lead ascends aorta and terminates near the level of aortic root. There is additio nal density or possible catheter fragment overlying the level of the left ventricle. Cardiac silhouet te size upper limits of normal. Mild central vascular congestion and interstitial edema. No pleural e ffusion or pneumothorax seen bilaterally. Osseous structures are intact. IMPRESSION: As above.
[2021-04-01] MEDS: INSULIN DETEMIR (LEVEMIR) 100 UNIT/ML SYR SQ SCH (06:37)
[2021-04-01] MEDS ORDERED: ASPIRIN 325 MG TAB PO SCH ×2 (09:00)
[2021-04-01 09:13] LABS: Glucose,Whole Blood 153 mg/dL (75-99)
[2021-04-01] MEDS: HEPARIN SODIUM,PORCINE 12,500 UNIT in DEXTROSE 5% IN WATER 500 ML IV SCH ×2 (09:26)
[2021-04-01] MEDS: PANTOPRAZOLE 40 MG/10 ML VIAL IVP SCH ×2 (09:29→20:38)
[2021-04-01] MEDS: TICAGRELOR 90 MG TAB PO SCH ×2 (09:30→21:41)
[2021-04-01] MEDS: METOPROLOL TARTRATE 25 MG TAB PO SCH ×2 (09:30→21:40)
[2021-04-01] MEDS: SODIUM BICARBONATE TAB 650 MG TAB PO SCH ×2 (09:30→21:40)
[2021-04-01] MEDS ORDERED: FUROSEMIDE 10 MG/ML 4 ML VIAL IV STA (09:54)
--- NOTE | 2021-04-01 10:21 | P.PN ---
Subjective Patient is seen in follow-up for acute kidney injury on chronic kidney disease. Renal function worse today. Urine output was lower last evening but the last few hours as been about 40-60 mL an hour. Patient denies chest pain or shortness of breath. Blood pressure stable. Vital signs are stable. General: The patient appeared well nourished and normally developed. HEENT: Head exam is unremarkable. LUNGS: Breath sounds decreased. HEART: Rate and Rhythm are regular. ABDOMEN: Soft, no distention. EXTREMITITES: Trace edema. Objective - Vital Signs Vital signs: Vital Signs Temp 98.5 F 04/01/21 08:00 Pulse 80 04/01/21 10:00 Resp 15 04/01/21 10:00 BP 121/102 03/31/21 19:00 Pulse Ox 97 04/01/21 10:00 Intake & Output 03/31/21 04/01/21 04/01/21 18:59 06:59 18:59 Intake Total 5902.838 5498.535 312 Output Total 1203 340 170 Balance -946.345 4568.535 142 Weight 111.13 kg 110.9 kg Intake: IV 925 900 312 Sodium Chloride 0.9% 1, 925 900 300 000 ml @ 75 mls/hr IV . [id number] ERIC Rx#:[id number] arterial line 3 ml/hour 12 Intake, IV Titration 53.631 343.535 Amount Amiodarone 450 mg In 316.673 Dextrose 5% in Water 250 ml @ 0.5 MG/MIN 16.667 mls/hr IV .Q15H ERIC Rx#: [id number] Heparin Sod,Pork in 0.45% 53.631 26.862 NaCl 25,000 unit In 0.45 % NaCl 1 250ml.bag @ Per Protocol IV .Q0M ERIC Rx#: [id number] Oral 100 760 Output: Urine 353 340 170 Emesis 850 Other: Voiding Method Indwelling Catheter Indwelling Catheter Indwelling Catheter ABP, PAP, CO, CI - Last Documented Arterial Blood Pressure 122/74 - Labs CBC & Chem 7: 04/01/21 04:00 04/01/21 04:00 Labs: Abnormal Lab Results - Last 24 Hours (Table) 03/31/21 03/31/21 03/31/21 Range/Units 10:42 11:20 11:36 WBC (3.8-10.6) k/uL RBC (4.30-5.90) m/uL Hgb (13.0-17.5) gm/dL Neutrophils # (1.3-7.7) k/uL APTT 79.5 H (22.0-30.0) sec Sodium (137-145) mmol/L Carbon Dioxide (22-30) mmol/L BUN (9-20) mg/dL Creatinine (0.66-1.25) mg/dL Glucose (74-99) mg/dL POC Glucose (mg/dL) 306 H (75-99) mg/dL Lactate Dehydrogenase (313-618) U/L Troponin I (0.000-0.034) ng/mL Ur Specific [place] 1.039 H (1.001-1.035) Urine Protein 3+ H (Negative) Urine Glucose (UA) 2+ H (Negative) Urine Blood Large H (Negative) Amorphous Sediment Rare H (None) /hpf Urine Bacteria Rare H (None) /hpf Urine Mucus Rare H (None) /hpf 03/31/21 03/31/21 03/31/21 Range/Units 14:20 14:20 14:20 WBC (3.8-10.6) k/uL RBC (4.30-5.90) m/uL Hgb (13.0-17.5) gm/dL Neutrophils # (1.3-7.7) k/uL APTT 46.9 H (22.0-30.0) sec Sodium (137-145) mmol/L Carbon Dioxide (22-30) mmol/L BUN (9-20) mg/dL Creatinine (0.66-1.25) mg/dL Glucose (74-99) mg/dL POC Glucose (mg/dL) (75-99) mg/dL Lactate Dehydrogenase 48477 H (313-618) U/L Troponin I >800.000 H* (0.000-0.034) ng/mL Ur Specific [place] (1.001-1.035) Urine Protein (Negative) Urine Glucose (UA) (Negative) Urine Blood (Negative) Amorphous Sediment (None) /hpf Urine Bacteria (None) /hpf Urine Mucus (None) /hpf 03/31/21 03/31/21 03/31/21 Range/Units 14:31 17:01 17:03 WBC (3.8-10.6) k/uL RBC (4.30-5.90) m/uL Hgb (13.0-17.5) gm/dL Neutrophils # (1.3-7.7) k/uL APTT 38.2 H (22.0-30.0) sec Sodium (137-145) mmol/L Carbon Dioxide (22-30) mmol/L BUN (9-20) mg/dL Creatinine (0.66-1.25) mg/dL Glucose (74-99) mg/dL POC Glucose (mg/dL) 286 H 249 H (75-99) mg/dL Lactate Dehydrogenase (313-618) U/L Troponin I (0.000-0.034) ng/mL Ur Specific [place] (1.001-1.035) Urine Protein (Negative) Urine Glucose (UA) (Negative) Urine Blood (Negative) Amorphous Sediment (None) /hpf Urine Bacteria (None) /hpf Urine Mucus (None) /hpf 03/31/21 03/31/21 03/31/21 Range/Units 19:12 20:15 21:20 WBC 20.1 H (3.8-10.6) k/uL RBC (4.30-5.90) m/uL Hgb (13.0-17.5) gm/dL Neutrophils # (1.3-7.7) k/uL APTT 36.8 H (22.0-30.0) sec Sodium (137-145) mmol/L Carbon Dioxide (22-30) mmol/L BUN (9-20) mg/dL Creatinine (0.66-1.25) mg/dL Glucose (74-99) mg/dL POC Glucose (mg/dL) 193 H (75-99) mg/dL Lactate Dehydrogenase (313-618) U/L Troponin I (0.000-0.034) ng/mL Ur Specific [place] (1.001-1.035) Urine Protein (Negative) Urine Glucose (UA) (Negative) Urine Blood (Negative) Amorphous Sediment (None) /hpf Urine Bacteria (None) /hpf Urine Mucus (None) /hpf 03/31/21 04/01/21 04/01/21 Range/Units 22:25 00:00 02:02 WBC (3.8-10.6) k/uL RBC (4.30-5.90) m/uL Hgb (13.0-17.5) gm/dL Neutrophils # (1.3-7.7) k/uL APTT (22.0-30.0) sec Sodium (137-145) mmol/L Carbon Dioxide (22-30) mmol/L BUN (9-20) mg/dL Creatinine (0.66-1.25) mg/dL Glucose (74-99) mg/dL POC Glucose (mg/dL) 187 H 198 H (75-99) mg/dL Lactate Dehydrogenase 36884 H (313-618) U/L Troponin I (0.000-0.034) ng/mL Ur Specific [place] (1.001-1.035) Urine Protein (Negative) Urine Glucose (UA) (Negative) Urine Blood (Negative) Amorphous Sediment (None) /hpf Urine Bacteria (None) /hpf Urine Mucus (None) /hpf 04/01/21 04/01/21 04/01/21 Range/Units 02:02 04:00 04:00 WBC 20.5 H (3.8-10.6) k/uL RBC 4.27 L (4.30-5.90) m/uL Hgb 12.7 L (13.0-17.5) gm/dL Neutrophils # 16.6 H (1.3-7.7) k/uL APTT 51.2 H (22.0-30.0) sec Sodium 130 L (137-145) mmol/L Carbon Dioxide 15 L (22-30) mmol/L BUN 33 H (9-20) mg/dL Creatinine 2.98 H (0.66-1.25) mg/dL Glucose 185 H (74-99) mg/dL POC Glucose (mg/dL) (75-99) mg/dL Lactate Dehydrogenase 59836 H (313-618) U/L Troponin I (0.000-0.034) ng/mL Ur Specific [place] (1.001-1.035) Urine Protein (Negative) Urine Glucose (UA) (Negative) Urine Blood (Negative) Amorphous Sediment (None) /hpf Urine Bacteria (None) /hpf Urine Mucus (None) /hpf 04/01/21 04/01/21 04/01/21 Range/Units 04:00 06:31 09:11 WBC (3.8-10.6) k/uL RBC (4.30-5.90) m/uL Hgb (13.0-17.5) gm/dL Neutrophils # (1.3-7.7) k/uL APTT 49.2 H (22.0-30.0) sec Sodium (137-145) mmol/L Carbon Dioxide (22-30) mmol/L BUN (9-20) mg/dL Creatinine (0.66-1.25) mg/dL Glucose (74-99) mg/dL POC Glucose (mg/dL) 178 H 153 H (75-99) mg/dL Lactate Dehydrogenase (313-618) U/L Troponin I (0.000-0.034) ng/mL Ur Specific [place] (1.001-1.035) Urine Protein (Negative) Urine Glucose (UA) (Negative) Urine Blood (Negative) Amorphous Sediment (None) /hpf Urine Bacteria (None) /hpf Urine Mucus (None) /hpf Assessment and Plan Plan: Assessment: 1. Acute kidney injury secondary to ATN secondary to acute NH/hemodynamic instability and contrast-induced acute kidney injury. Renal function worse. Creatinine 2.9 today. 2. Chronic kidney disease stage IIIB secondary to solitary right kidney and diabetic kidney disease. Creatinine in April 2018 was near 1.8. 3. Status post left nephrectomy. Patient is a kidney donor. 4. Metabolic acidosis secondary to acute kidney injury and IV fluids. 5. Hypokalemia from poor intake and diuresis. Replaced. Better. 6. Diabetes. 7. STEMI status post cardiac catheterization with LAD stenting as well as Impe lla placement. Plan: Stop normal saline. Start sodium bicarbonate drip to be run at 50 mL an hour. Lasix 40 mg IV once today. Avoid nephrotoxins. Maintain oral bicarb. Continue to monitor renal function and urine output.
[2021-04-01] MEDS: DEXTROSE 5% IN WATER 1,000 ML with SODIUM BICARB (1 MEQ/ML) 150 ML IV SCH (10:31)
--- NOTE | 2021-04-01 10:38 | PN ---
PROGRESS NOTE Mr. Littlejohn is a 61-year-old male who presented with an acute anterior wall myocardial infarction, underwent cardiac catheterization and stenting of the LAD by Dr. Deal. He was found to have a subtotally occluded proximal LAD. Post procedure he had recurrent chest pain and subsequently underwent placement of an Impella. He is feeling well this morning. He is tired from the implant, but he has no chest pain. Hemodynamically he is stable. He is denying any chest pain, dizziness or palpitations. He continues to be on IV amiodarone but had no further episode of ventricular tachycardia. He had an echocardiogram that revealed severe impairment of left ventricular systolic function. He had mild mitral and tricuspid regurgitation. He continues to be on aspirin once a day, Lipitor 80 mg daily, IV heparin, insulin, Zestril 2.5 mg daily, metoprolol tartrate 25 mg twice a day, Brilinta 90 mg twice a day and Protonix. PHYSICAL EXAMINATION: Blood pressure is running in the 120s with a heart rate in the 80s. LUNGS: Clear anteriorly. HEART: Regular rate and rhythm. S1, S2. No S3. No rub appreciated. ABDOMEN: Soft, nontender. EXTREMITIES: No edema. Impella noted in the right femoral artery. LAB DATA: White blood cell count 20.5, hemoglobin 12.7, BUN and creatinine of 33 and 2.98, potassium 4.2. His troponin peaked over 800. IMPRESSION: 1. Status post large anterior myocardial infarction with proximal LAD lesion and severe cardiomyopathy, status post angioplasty and Impella placement. 2. Chronic kidney disease. 3. Severe cardiomyopathy. 4. Hyperlipidemia. RECOMMENDATIONS: I will stop the IV amiodarone at this time. I will start weaning his Impella. I will discuss his case with Dr. Deal to pull the Impella off today. Will follow his renal function closely in regard to his TIFFANY inhibitor. patient is not on aspirin because of anaphylactic reaction in the past. Depending on his progress, further recommendations will be made. The prognosis remains guarded. MMODL / IJN: [id number] /
[2021-04-01 11:27] LABS: Glucose,Whole Blood 135 mg/dL (75-99)
[2021-04-01] MEDS ORDERED: LIDOCAINE 1% INJ 10MG/ML (20 ML MDV) ONE (11:46)
[2021-04-01] MEDS ORDERED: SODIUM CHLORIDE 0.9% 500 ML 500 ML IV ONE (12:20)
[2021-04-01] MEDS ORDERED: IV FLUID CONTINUATION 1,000 ML IV ONE (12:20)
[2021-04-01] MEDS ORDERED: MIDAZOLAM 2 MG/2 ML VIAL IV ONE (12:20)
[2021-04-01] MEDS ORDERED: LIDOCAINE 1% INJ 10MG/ML (20 ML MDV) SQ ONE (12:46)
[2021-04-01] MEDS ORDERED: HYDROmorphone 0.5 MG/0.5 ML SYRINGE IVP ONE (12:52)
[2021-04-01 13:01] VITALS: BMI 36.1
--- NOTE | 2021-04-01 13:03 | P.PCN ---
Date of Procedure: 04/01/21 Operative Findings: Procedure performed #1 removal of Impella from the left ventricle #2 successful hemostasis of the right groin using Perclose Indication The patient is a 61-year-old gentleman who was admitted to the hospital 2 days ago with acute anterior ST elevation myocardial infarction complicated by cardiogenic shock. At that point an Impella was placed. The patient has improved hemodynamically and he was brought today to the Supervisor Nurse to have the Impella removed and for groin hemostasis. Complication None Level of sedation Moderate Procedure description The patient was brought to the cardiac livestock laborer. The Impella was removed by pulling back from the left ventricle without fluoroscopy guidance. Subsequently the device was removed from the sheath completely. Then I placed an 035 wire through the 14-Spanish sheath all the way to the ascending aorta. Subsequently I tightened the 2 Perclose placed in the past after no 35 wire was withdrawn out. We achieved excellent hemostasis with an excellent pulse in the right femoral artery and also excellent pulse in the right posterior tibial artery. The procedure was completed without any complications Postprocedure management #1 monitor the right groin #2 the patient is going to be going back to the ICU
[2021-04-01 13:11] LABS: Glucose,Whole Blood 143 mg/dL (75-99)
[2021-04-01] MEDS ORDERED: LORazepam 2 MG/ML INJ ONE (15:29)
[2021-04-01] MEDS: LORazepam 2 MG/ML INJ IV PRN ×2 (15:38→21:30)
[2021-04-01] MEDS ORDERED: HALOPERIDOL LACTATE 5 MG/ML 1 ML VIAL IVP PRN (15:47)
[2021-04-01] MEDS ORDERED: HALOPERIDOL LACTATE 5 MG/ML 1 ML VIAL IVP STA (15:47)
--- NOTE | 2021-04-01 16:04 | P.PN ---
Subjective Progress Note Date: 04/01/21 61 years old location male with past medical history of type 2 diabetes, COPD, chronic kidney disease stage III secondary to solitary right kidney as well as diabetic kidney disease is 9 and creatinine 1.8, tobacco abuser, kidney donor came in to the hospital with chest discomfort at [facility]. EKG was suggestive of anterolateral ST NC and was transferred to [facility]. Patient underwent emergent heart catheter revealed proximal LAD occlusion status post thrombectomy and stenting of LAD by Dr. Christiansen. Patient also found to have chronic total occlusion of the right coronary artery. Patient continued to have chest discomfort postprocedure with significant ST segment elevation anteriorly. His blood pressure dropped and was noted to be in nonsustained V. tach and an Impala was placed through the right groin approach. Patient was evaluated in the ICU continued to have intermittent chest pain associated with nausea and vomiting. Patient's emesis was coffee ground in color. He denies any shortness of breath or abdominal pain. Patient denies any history of gastritis or alcohol abuse in the past. Vitals were reviewed patient is afebrile pulse 62 respiratory rate 19 blood pressure 116/94 and oxygen saturation 94% on 6 L. Labs reviewed patient has a leukocytosis of 15 which increased to 20 this morning. Sodium 140 potassium 3.3 status post repletion, chloride 108 bicarb 17 BUN 22 creatinine 2 glucose ranging from 232 to 375 Troponin elevated 0.04 date increased to 551 proBNP 569 albumin 3.6. EKG 03/31 suggestive of anterior infarct sinus tachycardia and right bundle branch block. Echocardiogram suggestive of severe concentric left ventricle hypertrophy with severe global hypokinesis of left ventricle. Left ventricular assist device noted EF not calculated 04/01 patient has been increasingly agitated since the Impala removal from the Lab. Wet of the review patient's afebrile pulse 82 respiratory rate of 25 blood pressure 113/81 and oxygen saturation 92 present 3 L. Ativan initiated at 0.5 mg every 6 hours with Haldol 0.5 mg every 6 hours. QT intervals 450. EKG ordered. Patient to remain on ekg monitor tech for QT prolongation. Since agitation not controlled on Ativan and Haldol will be added 0.5 mg IM every 6 hours. Haldol can be initiated at 10 mg in the 12 hours for agitation. Patient can be started on Seroquel once patient is able to take oral medication. ROS Could not be obtained due to agitation Physical exam - Constitutional General appearance: cooperative, no acute distress, obese appear sedated - EENT Eyes: anicteric sclerae, PERRLA, normal appearance ENT: hearing grossly normal - Neck Neck: no lymphadenopathy, normal ROM, no other, no rigidity, no stridor, no thyromegaly - Respiratory Respiratory: bilateral: Decreased air entry negative: diminished, dullness, rales, rhonchi - Cardiovascular Rhythm: regular Heart sounds: normal: S1, S2 Abnormal Heart Sounds: no systolic murmur, no diastolic murmur, no rub, no S3 Gallop, no S4 Gallop, no click, no other - Gastrointestinal General gastrointestinal: normal bowel sounds, soft nontender - Integumentary Integumentary: no rash no hematoma noted - Neurologic Neurologic: No sensory or motor deficit - Musculoskeletal Musculoskeletal: strength equal bilaterally - Psychiatric Psychiatric: A&O x's 3, appropriate affect Assessment and plan #1 acute STEMI implicated by cardiogenic shock started on brillanta Patient has anaphylaxis to aspirin would hold off patient is not comfortable starting aspirin. Impala removed on 04/01 Continue IV heparin echo 03/31 suggestive of concentric left ventricular hypertrophy and severe global hypokinesis of left ventricle. continue Lipitor 80 mg daily at bedtime lisinopril 2.5 mg by mouth daily metoprolol 25 twice a day continue morphine 4 mg IV every 4 hours for pain control. #2 acute metabolic encephalopathy secondary to medications Ativan 0.5 mg every 6 hour. Haldol 0.5 mg every 6 hours and monitor QT intervals. EKG daily. Geodon 10 mg IM every 12 with no improvement with Haldol and #3acute kidney injury secondary to ATN secondary to acute NC continue IV fluids at 75 mL per hour.. Avoid nephrotoxic agent #4 acute nausea and vomiting Protonix initiated at 40 IV twice a day. Continue to monitor for GI bleed. Zofran initiated for nausea. Reglan added at 10 IV every 6 hours for nausea control as Zofran and is unable to hold patient's nausea #5 diabetes type 2 uncontrolled last A1c unknown. Patient follows grinder gear Dr. Madhav Pritchett initiated 10 units subcu daily with insulin sliding scale to be adjusted once patient's home medications known. #6chronic kidney disease stage III be secondary to solitary right kidney and diabetic kidney disease Baseline creatinine 1.8 #7 metabolic acidosis secondary to diabetic kidney disease and acute kidney injury #8 status post left nephrectomy #9 COPD continue DuoNeb as needed for shortness of breath Pulmicort [place] at 0.5 twice a day #10 tobacco abuse patient counseled on smoking cessation would like to stop smoking #11Codestatus full code #12 DVT prophylaxis with heparin drip #13 disposition pending stabilization Objective - Vital Signs Vital signs: Vital Signs Temp 98.8 F 04/01/21 13:45 Pulse 82 04/01/21 14:20 Resp 16 04/01/21 14:20 BP 105/87 04/01/21 14:20 Pulse Ox 93 L 04/01/21 14:20 Intake & Output 03/31/21 04/01/21 04/01/21 18:59 06:59 18:59 Intake Total 5327.891 6386.535 618 Output Total 1203 340 850 Balance -752.734 1384.535 -232 Weight 111.13 kg 110.9 kg 110.9 kg Intake: IV 925 900 418 Sodium Chloride 0.9% 1, 925 900 300 000 ml @ 75 mls/hr IV . [id number] ERIC Rx#:[id number] arterial line 3 ml/hour 18 Intake, IV Titration 53.631 343.535 200 Amount Amiodarone 450 mg In 316.673 Dextrose 5% in Water 250 ml @ 0.5 MG/MIN 16.667 mls/hr IV .Q15H ERIC Rx#: [id number] Dextrose 5% in Water 1, 200 000 ml @ 50 mls/hr IV . Q23H ERIC with Sodium Bicarb (1 Meq/ml) 150 ml Rx#:[id number] Heparin Sod,Pork in 0.45% 53.631 26.862 NaCl 25,000 unit In 0.45 % NaCl 1 250ml.bag @ Per Protocol IV .Q0M ERIC Rx#: [id number] Oral 100 760 Output: Urine 353 340 850 Emesis 850 Other: Voiding Method Indwelling Catheter Indwelling Catheter Indwelling Catheter ABP, PAP, CO, CI - Last Documented Arterial Blood Pressure 115/67 - Labs CBC & Chem 7: 04/01/21 04:00 04/01/21 04:00 Labs: Abnormal Lab Results - Last 24 Hours (Table) 03/31/21 03/31/21 03/31/21 Range/Units 17:01 17:03 19:12 WBC 20.1 H (3.8-10.6) k/uL RBC (4.30-5.90) m/uL Hgb (13.0-17.5) gm/dL Neutrophils # (1.3-7.7) k/uL APTT 38.2 H (22.0-30.0) sec Sodium (137-145) mmol/L Carbon Dioxide (22-30) mmol/L BUN (9-20) mg/dL Creatinine (0.66-1.25) mg/dL Glucose (74-99) mg/dL POC Glucose (mg/dL) 249 H (75-99) mg/dL Hemoglobin A1c (4.0-6.0) % Lactate Dehydrogenase (313-618) U/L 03/31/21 03/31/21 03/31/21 Range/Units 20:15 21:20 22:25 WBC (3.8-10.6) k/uL RBC (4.30-5.90) m/uL Hgb (13.0-17.5) gm/dL Neutrophils # (1.3-7.7) k/uL APTT 36.8 H (22.0-30.0) sec Sodium (137-145) mmol/L Carbon Dioxide (22-30) mmol/L BUN (9-20) mg/dL Creatinine (0.66-1.25) mg/dL Glucose (74-99) mg/dL POC Glucose (mg/dL) 193 H 187 H (75-99) mg/dL Hemoglobin A1c (4.0-6.0) % Lactate Dehydrogenase (313-618) U/L 04/01/21 04/01/21 04/01/21 Range/Units 00:00 02:02 02:02 WBC (3.8-10.6) k/uL RBC (4.30-5.90) m/uL Hgb (13.0-17.5) gm/dL Neutrophils # (1.3-7.7) k/uL APTT 51.2 H (22.0-30.0) sec Sodium (137-145) mmol/L Carbon Dioxide (22-30) mmol/L BUN (9-20) mg/dL Creatinine (0.66-1.25) mg/dL Glucose (74-99) mg/dL POC Glucose (mg/dL) 198 H (75-99) mg/dL Hemoglobin A1c (4.0-6.0) % Lactate Dehydrogenase 49045 H (313-618) U/L 04/01/21 04/01/21 04/01/21 Range/Units 04:00 04:00 04:00 WBC 20.5 H (3.8-10.6) k/uL RBC 4.27 L (4.30-5.90) m/uL Hgb 12.7 L (13.0-17.5) gm/dL Neutrophils # 16.6 H (1.3-7.7) k/uL APTT 49.2 H (22.0-30.0) sec Sodium 130 L (137-145) mmol/L Carbon Dioxide 15 L (22-30) mmol/L BUN 33 H (9-20) mg/dL Creatinine 2.98 H (0.66-1.25) mg/dL Glucose 185 H (74-99) mg/dL POC Glucose (mg/dL) (75-99) mg/dL Hemoglobin A1c (4.0-6.0) % Lactate Dehydrogenase 95758 H (313-618) U/L 04/01/21 04/01/21 04/01/21 Range/Units 04:00 06:31 09:11 WBC (3.8-10.6) k/uL RBC (4.30-5.90) m/uL Hgb (13.0-17.5) gm/dL Neutrophils # (1.3-7.7) k/uL APTT (22.0-30.0) sec Sodium (137-145) mmol/L Carbon Dioxide (22-30) mmol/L BUN (9-20) mg/dL Creatinine (0.66-1.25) mg/dL Glucose (74-99) mg/dL POC Glucose (mg/dL) 178 H 153 H (75-99) mg/dL Hemoglobin A1c 9.2 H (4.0-6.0) % Lactate Dehydrogenase (313-618) U/L 04/01/21 04/01/21 Range/Units 11:26 13:10 WBC (3.8-10.6) k/uL RBC (4.30-5.90) m/uL Hgb (13.0-17.5) gm/dL Neutrophils # (1.3-7.7) k/uL APTT (22.0-30.0) sec Sodium (137-145) mmol/L Carbon Dioxide (22-30) mmol/L BUN (9-20) mg/dL Creatinine (0.66-1.25) mg/dL Glucose (74-99) mg/dL POC Glucose (mg/dL) 135 H 143 H (75-99) mg/dL Hemoglobin A1c (4.0-6.0) % Lactate Dehydrogenase (313-618) U/L
[2021-04-01 16:49] LABS: Glucose,Whole Blood 255 mg/dL (75-99)
[2021-04-01] MEDS ORDERED: ZIPRASIDONE 20 MG VIAL IM PRN (16:58)
[2021-04-01] MEDS ORDERED: QUEtiapine 25 MG TAB PO STA (19:31)
[2021-04-01 20:33] LABS: Glucose,Whole Blood 204 mg/dL (75-99)
[2021-04-01] MEDS: ATORVASTATIN 80 MG TAB PO SCH (21:39)
[2021-04-02 00:42] LABS: Glucose,Whole Blood 137 mg/dL (75-99)
[2021-04-02] MEDS: INSULIN ASPART (NovoLOG) 100 UNIT/ML VIAL SQ SCH ×7 (00:43→23:15)
[2021-04-02 05:27] LABS: Glucose,Whole Blood 155 mg/dL (75-99)
[2021-04-02 06:33] LABS: Basophils % (A) 0 %; Eosinophils # (A) 0.1 k/uL (0-0.7); Eosinophils % (A) 0 %; HCT 35.9 % (39.0-53.0); HGB 11.6 gm/dL (13.0-17.5); Lymphocytes % (A) 13 %; MCHC 32.4 g/dL (31.0-37.0); MCV 92.5 fL (80.0-100.0); Mean Platelet Volume 10.1; Monocytes # (A) 0.8 k/uL (0-1.0); Monocytes % (A) 5 %; Neutrophils # (A) 12.3 k/uL (1.3-7.7); Neutrophils % (A) 80 %; Platelet Count 136 k/uL (150-450); RBC 3.88 m/uL (4.30-5.90); RDW 13.5 % (11.5-15.5); WBC 15.3 k/uL (3.8-10.6)
[2021-04-02 06:51] LABS: Calcium 8.9 mg/dL (8.4-10.2); Magnesium 2.1 mg/dL (1.6-2.3); Potassium 3.9 mmol/L (3.5-5.1)
[2021-04-02] MEDS: INSULIN DETEMIR (LEVEMIR) 100 UNIT/ML SYR SQ SCH (07:28)
[2021-04-02] MEDS: IPRATROPIUM-ALBUTEROL 3 ML NEB INHALATION SCH ×3 (08:08→21:25)
[2021-04-02] MEDS: BUDESONIDE 1 MG/2 ML NEBU INHALATION SCH (08:11)
[2021-04-02 09:02] LABS: Glucose,Whole Blood 174 mg/dL (75-99)
[2021-04-02] MEDS: PANTOPRAZOLE 40 MG/10 ML VIAL IVP SCH (09:22)
[2021-04-02] MEDS: SODIUM BICARBONATE TAB 650 MG TAB PO SCH ×2 (09:23→20:39)
[2021-04-02] MEDS: DEXTROSE 5% IN WATER 1,000 ML with SODIUM BICARB (1 MEQ/ML) 150 ML IV SCH (09:23)
[2021-04-02] MEDS: METOPROLOL TARTRATE 25 MG TAB PO SCH ×3 (09:23→20:40)
[2021-04-02] MEDS: TICAGRELOR 90 MG TAB PO SCH ×2 (09:23→20:40)
[2021-04-02] MEDS ORDERED: SODIUM CHLORIDE 0.9% 1,000 ML IV SCH (09:30)
[2021-04-02] MEDS ORDERED: POTASSIUM BICARBONATE/CIT AC 20 MEQ TABLET.EFF NG-TUBE SCH (10:00)
--- NOTE | 2021-04-02 10:44 | PN ---
PROGRESS NOTE Mr. Littlejohn is a 61-year-old male who presented with acute anterior myocardial infarction complicated by ventricular fibrillation, underwent cardiac catheterization, angioplasty and stenting of the proximal LAD. Subsequently he had an Impella catheter placed because of hypotension recurrent pain. The Impella catheter was removed yesterday. He is awake. He was confused yesterday but appears to be more awake and oriented this morning. He is feeling tired but he is denying any chest pain. He is dyspneic. He denies any dizziness or palpitations. He denies any nausea. His urine output has been stable. He has a known history of chronic renal disease. He continues to be on Lipitor 80 mg daily, insulin, lisinopril 2.5 mg daily, metoprolol tartrate 25 mg twice a day, Protonix, Brilinta 90 mg twice a day, and sodium bicarb. The patient is not on aspirin because of anaphylactic reaction. PHYSICAL EXAMINATION: Blood pressure 115/89 with a heart rate in the 80s. LUNGS: No wheezes or rales. HEART: Regular rate and rhythm. S1, S2. No S3, with systolic murmur. No diastolic murmur. No rub. ABDOMEN: Soft, nontender. Positive bowel sounds. No organomegaly. RIGHT GROIN: No hematoma. LAB DATA: BUN and creatinine 47 and 3.34. Potassium 3.9. White blood cell count 15.3, which is improved compared to yesterday. Hemoglobin 11.6. IMPRESSION: 1. Status post large anterior myocardial infarction with cardiogenic shock and placement of an Impella catheter. Improved at this time. 2. Status post stenting of the LAD. 3. Chronic kidney disease. 4. Confusion, resolved. RECOMMENDATIONS: From the cardiac standpoint, I will increase the dose of his beta león, continue on the present therapy, increase his activity gradually. Follow his renal function. Depending on his progress, further recommendations will be made. The prognosis remains guarded. MMODL / IJN: [id number] /
--- NOTE | 2021-04-02 10:52 | P.PN ---
Subjective Patient is seen in follow-up for acute kidney injury on chronic kidney disease. Renal function continues to worsen. Nonoliguric. Patient denies chest pain or shortness of breath. Blood pressure stable. On bicarb drip. Oral intake fair. Vital signs are stable. General: The patient appeared well nourished and normally developed. HEENT: Head exam is unremarkable. LUNGS: Breath sounds decreased. HEART: Rate and Rhythm are regular. ABDOMEN: Soft, no distention. EXTREMITITES: Trace edema. Objective - Vital Signs Vital signs: Vital Signs Temp 98.5 F 04/02/21 08:00 Pulse 96 04/02/21 09:00 Resp 27 H 04/02/21 09:00 BP 128/87 04/02/21 09:00 Pulse Ox 96 04/02/21 09:00 Intake & Output 04/01/21 04/02/21 04/02/21 18:59 06:59 18:59 Intake Total 868 550 150 Output Total 1200 615 420 Balance -332 -65 -270 Weight 110.9 kg Intake: IV 418 550 150 Dextrose 5% in Water 1, 550 150 000 ml @ 50 mls/hr IV . Q23H ERIC with Sodium Bicarb (1 Meq/ml) 150 ml Rx#:[id number] Sodium Chloride 0.9% 1, 300 000 ml @ 75 mls/hr IV . [id number] ERIC Rx#:[id number] arterial line 3 ml/hour 18 Intake, IV Titration 450 Amount Dextrose 5% in Water 1, 450 000 ml @ 50 mls/hr IV . Q23H ERIC with Sodium Bicarb (1 Meq/ml) 150 ml Rx#:[id number] Output: Urine 1200 615 420 Other: Voiding Method Indwelling Catheter Indwelling Catheter ABP, PAP, CO, CI - Last Documented Arterial Blood Pressure 115/67 - Labs CBC & Chem 7: 04/02/21 06:06 04/02/21 06:06 Labs: Abnormal Lab Results - Last 24 Hours (Table) 04/01/21 04/01/21 04/01/21 Range/Units 04:00 11:26 13:10 WBC (3.8-10.6) k/uL RBC (4.30-5.90) m/uL Hgb (13.0-17.5) gm/dL Hct (39.0-53.0) % Plt Count (150-450) k/uL Neutrophils # (1.3-7.7) k/uL Sodium (137-145) mmol/L BUN (9-20) mg/dL Creatinine (0.66-1.25) mg/dL Glucose (74-99) mg/dL POC Glucose (mg/dL) 135 H 143 H (75-99) mg/dL Hemoglobin A1c 9.2 H (4.0-6.0) % 04/01/21 04/01/21 04/02/21 Range/Units 16:47 20:32 00:40 WBC (3.8-10.6) k/uL RBC (4.30-5.90) m/uL Hgb (13.0-17.5) gm/dL Hct (39.0-53.0) % Plt Count (150-450) k/uL Neutrophils # (1.3-7.7) k/uL Sodium (137-145) mmol/L BUN (9-20) mg/dL Creatinine (0.66-1.25) mg/dL Glucose (74-99) mg/dL POC Glucose (mg/dL) 255 H 204 H 137 H (75-99) mg/dL Hemoglobin A1c (4.0-6.0) % 04/02/21 04/02/21 04/02/21 Range/Units 05:26 06:06 06:06 WBC 15.3 H (3.8-10.6) k/uL RBC 3.88 L (4.30-5.90) m/uL Hgb 11.6 L (13.0-17.5) gm/dL Hct 35.9 L (39.0-53.0) % Plt Count 136 L (150-450) k/uL Neutrophils # 12.3 H (1.3-7.7) k/uL Sodium 134 L (137-145) mmol/L BUN 47 H (9-20) mg/dL Creatinine 3.34 H (0.66-1.25) mg/dL Glucose 149 H (74-99) mg/dL POC Glucose (mg/dL) 155 H (75-99) mg/dL Hemoglobin A1c (4.0-6.0) % 04/02/21 Range/Units 09:01 WBC (3.8-10.6) k/uL RBC (4.30-5.90) m/uL Hgb (13.0-17.5) gm/dL Hct (39.0-53.0) % Plt Count (150-450) k/uL Neutrophils # (1.3-7.7) k/uL Sodium (137-145) mmol/L BUN (9-20) mg/dL Creatinine (0.66-1.25) mg/dL Glucose (74-99) mg/dL POC Glucose (mg/dL) 174 H (75-99) mg/dL Hemoglobin A1c (4.0-6.0) % Assessment and Plan Plan: Assessment: 1. Acute kidney injury secondary to ATN secondary to acute [place]/cardiogenic shock and contrast-induced acute kidney injury. Renal function worse. Creatinine 3.34 today. 2. Chronic kidney disease stage IIIB secondary to solitary right kidney and diabetic kidney disease. Creatinine in April 2018 was near 1.8. 3. Status post left nephrectomy. Patient is a kidney donor. 4. Metabolic acidosis secondary to acute kidney injury and IV fluids. Improved post bicarb drip. On oral bicarb. 5. Hypokalemia from poor intake and diuresis. Replaced. Better. 6. Diabetes. 7. STEMI status post cardiac catheterization with LAD stenting as well as Impella placement. Impeller removed April 01. Plan: Change bicarb drip to normal saline at 50 mL an hour. Avoid nephrotoxins. Continue to monitor renal function and urine output. Hold off on diuretics for now.
[2021-04-02] MEDS ORDERED: FUROSEMIDE 10 MG/ML 4 ML VIAL IV STA (11:02)
[2021-04-02 11:44] LABS: Glucose,Whole Blood 151 mg/dL (75-99)
--- NOTE | 2021-04-02 11:58 | XR ---
EXAMINATION TYPE: XR chest 1V portable DATE OF EXAM: 04/02/2021 COMPARISON: 04/01/2021 INDICATION: Short of breath TECHNIQUE: Single frontal view of the chest is obtained. FINDINGS: The heart size is mildly prominent. The pulmonary vasculature is prominent. Diffuse increased lung markings are present bilaterally greater on the left. Findings are worsening o donte the interval. Consider atypical pneumonia and volume overload IMPRESSION: 1. Worsening bilateral lung infiltrates diffusely slightly greater on the left. Correlate for atypica l pulmonary edema and atypical pneumonia.
[2021-04-02] MEDS ORDERED: methylPREDNISolone SOD SUCCI 125 MG/2 ML VIAL IV SCH (12:00)
[2021-04-02] MEDS ORDERED: RACEPINEPHRINE 2.25% NEB 0.5 ML NEBU INHALATION ONE (12:45)
--- NOTE | 2021-04-02 13:34 | P.PN ---
Subjective Progress Note Date: 04/02/21 61 years old location male with past medical history of type 2 diabetes, COPD, chronic kidney disease stage III secondary to solitary right kidney as well as diabetic kidney disease is 9 and creatinine 1.8, tobacco abuser, kidney donor came in to the hospital with chest discomfort at [facility]. EKG was suggestive of anterolateral ST ND and was transferred to [facility]. Patient underwent emergent heart catheter revealed proximal LAD occlusion status post thrombectomy and stenting of LAD by Dr. Christiansen. Patient also found to have chronic total occlusion of the right coronary artery. Patient continued to have chest discomfort postprocedure with significant ST segment elevation anteriorly. His blood pressure dropped and was noted to be in nonsustained V. tach and an Impala was placed through the right groin approach. Patient was evaluated in the ICU continued to have intermittent chest pain associated with nausea and vomiting. Patient's emesis was coffee ground in color. He denies any shortness of breath or abdominal pain. Patient denies any history of gastritis or alcohol abuse in the past. Vitals were reviewed patient is afebrile pulse 62 respiratory rate 19 blood pressure 116/94 and oxygen saturation 94% on 6 L. Labs reviewed patient has a leukocytosis of 15 which increased to 20 this morning. Sodium 140 potassium 3.3 status post repletion, chloride 108 bicarb 17 BUN 22 creatinine 2 glucose ranging from 232 to 375 Troponin elevated 0.04 date increased to 551 proBNP 569 albumin 3.6. EKG 03/31 suggestive of anterior infarct sinus tachycardia and right bundle branch block. Echocardiogram suggestive of severe concentric left ventricle hypertrophy with severe global hypokinesis of left ventricle. Left ventricular assist device noted EF not calculated 04/01 patient has been increasingly agitated since the Impala removal from the Lab. Wet of the review patient's afebrile pulse 82 respiratory rate of 25 blood pressure 113/81 and oxygen saturation 92 present 3 L. Ativan initiated at 0.5 mg every 6 hours with Haldol 0.5 mg every 6 hours. QT intervals 450. EKG ordered. Patient to remain on traffic monitor specialist for QT prolongation. Since agitation not controlled on Ativan and Haldol will be added 0.5 mg IM every 6 hours. Haldol can be initiated at 10 mg in the 12 hours for agitation. Patient can be started on Seroquel once patient is able to take oral medication. patient examined at bedside. He appears restless. Patient received multiple doses of Haldol and Ativan at night. Geodon was initiated for PICC concern for agitation. Patient given one dose of Seroquel last night to help with agitation. Patient is not confused is able to answer questions appropriately but is noted to remove this oxygen intermittently. He does understand to the hospital and needs oxygen. She was noted to be hypoxic this morning at rest. Chest x-ray was obtained that suggested worsening bilateral lung infiltrate diffusely slightly greater on the left suggestive of atypical pulmonary edema and atypical pneumonia. IV Lasix 1 dose given. Pulmonary consulted. Solu-Medrol initiated. DuoNeb initiated at every 6 hours. Ativan was discontinued per pulmonary. We'll discontinue Geodon continue patient on Se roquel vitals are reviewed patient's afebrile. Pulse 88 respiratory rate 20 blood pressure 130/90 oxygen saturation currently 95% on 2 L labs reviewed today WBC is 15.3 improved from 20.5 hemoglobin is 11.6 sodium 134 BUN 47 creatinine 3.34 was sent from 2.94 yesterday. Nephrology recommends holding Lasix. Pulmonary recommends increasing Lasix to 40 IV twice a day. Continue normal saline at 50 mL per hour. Bicarb drip discontinued. ROS Constitutional: Denies chills, Denies fever, endorses low energy Denies poor appetite, endorses frequent Denies weight loss Eyes: denies decreased vision, denies diplopia, denies discharge, denies pain Ears: deny: decreased hearing Ears, nose, mouth and throat: Denies dental pain, Denies headache, Denies nasal discharge, Denies nose pain Cardiovascular: Denies chest pain, Denies decreased exercise tolerance, Denies edema, Denies high blood pressure, Denies irregular heart beat, Denies palpitations, Denies paroxysmal nocturnal dyspnea, Denies rapid heart beat, Denies shortness of breath Respiratory: Denies congestion, Denies cough, Denies cough with sputum, endorses dyspnea Denies home oxygen, Denies wheezing Gastrointestinal: Denies abdominal pain, Denies change in bowel habits, Denies coffee ground emesis, Denies early satiety, Denies excessive gas, Denies heartburn, Denies hematemesis, Denies hematochezia, Denies loss of appetite, Denies nausea, Denies vomiting Genitourinary: Denies dysuria, Denies flank pain, Denies kidney stones, Denies menorrhagia, Denies urgency, Denies urinary frequency Musculoskeletal: Denies gait dysfunction, Denies limitation of motion, Denies morning stiffness, Denies muscle cramps Integumentary: Denies rash, Denies wounds, Denies brittle nails, Denies change in hair/nails, Denies darkening of skin Neurological: Denies balance difficulties, Denies change in speech, Denies double vision, Denies gait dysfunction, Denies loss of vision, Denies motor disturbance, Denies numbness, Denies paralysis, Denies paresthesias, Denies seizures Psychiatric: Denies anxiety, Denies depression Endocrine: Denies excessive sweating, Denies excessive thirst, Denies high blood sugars, Denies palpitations Hematologic/Lymphatic: Denies easy bruising, Denies lymphadenopathy Physical exam - Constitutional General appearance: cooperative, no acute distress, obese appear sedated - EENT Eyes: anicteric sclerae, PERRLA, normal appearance ENT: hearing grossly normal - Neck Neck: no lymphadenopathy, normal ROM, no other, no rigidity, no stridor, no thyromegaly - Respiratory Respiratory: bilateral: Decreased air entry with crackles at the bases. - Cardiovascular Rhythm: regular Heart sounds: normal: S1, S2 Abnormal Heart Sounds: no systolic murmur, no diastolic murmur, no rub, no S3 Gallop, no S4 Gallop, no click, no other - Gastrointestinal General gastrointestinal: normal bowel sounds, soft nontender - Integumentary Integumentary: no rash no hematoma noted - Neurologic Neurologic: No sensory or motor deficit - Musculoskeletal Musculoskeletal: strength equal bilaterally - Psychiatric Psychiatric: A&O x's 3, appropriate affect Assessment and plan #1 acute STEMI complicated by cardiogenic shock on brillanta Patient has anaphylaxis to aspirin would hold off patient is not comfortable starting aspirin. Impala removed on 04/01 Continue IV heparin echo 03/31 suggestive of concentric left ventricular hypertrophy and severe global hypokinesis of left ventricle. continue Lipitor 80 mg daily at bedtime lisinopril 2.5 mg by mouth daily metoprolol 25 twice a day continue morphine 4 mg IV every 4 hours for pain control. #2 acute metabolic encephalopathy secondary to medications Ativan discontinued Haldol 0.5 mg every 6 hours and monitor QT intervals. EKG daily. Geodon 10 mg IM every 12 as needed. Seroquel 25 mg at bedtime. #3acute kidney injury secondary to ATN secondary to acute ND /cardiogenic shock with contrast-induced nephropathy continue IV fluids at 75 mL per hour.. Avoid nephrotoxic agent #4 acute nausea and vomiting Protonix can be switched to once a day. Continue to monitor for GI bleed. Zofran initiated for nausea. Reglan 10 IV every 6 hours for nausea control as Zofran and is unable to hold patient's nausea #5 diabetes type 2 uncontrolled last A1c unknown. 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 Madhav Pritchett initiated 10 units subcu daily with insulin sliding scale to be adjusted once patient's home medications known. #6chronic kidney disease stage III be secondary to solitary right kidney and diabetic kidney disease Baseline creatinine 1.8 #7 metabolic acidosis secondary to diabetic kidney disease and acute kidney injury #8 status post left nephrectomy #9 COPD continue DuoNeb as needed for shortness of breath and Symbicort twice daily #10 tobacco abuse patient counseled on smoking cessation would like to stop smoking #11Codestatus full code #12 DVT prophylaxis with heparin drip #13 disposition pending stabilization Objective - Vital Signs Vital signs: Vital Signs Temp 98.5 F 04/02/21 08:00 Pulse 88 04/02/21 11:00 Resp 20 04/02/21 11:00 BP 130/90 04/02/21 11:00 Pulse Ox 95 04/02/21 11:00 Intake & Output 04/01/21 04/02/21 04/02/21 18:59 06:59 18:59 Intake Total 868 550 150 Output Total 1200 615 420 Balance -332 -65 -270 Weight 110.9 kg Intake: IV 418 550 150 Dextrose 5% in Water 1, 550 150 000 ml @ 50 mls/hr IV . Q23H ERIC with Sodium Bicarb (1 Meq/ml) 150 ml Rx#:[id number] Sodium Chloride 0.9% 1, 300 000 ml @ 75 mls/hr IV . [id number] ERIC Rx#:[id number] arterial line 3 ml/hour 18 Intake, IV Titration 450 Amount Dextrose 5% in Water 1, 450 000 ml @ 50 mls/hr IV . Q23H ERIC with Sodium Bicarb (1 Meq/ml) 150 ml Rx#:[id number] Output: Urine 1200 615 420 Other: Voiding Method Indwelling Catheter Indwelling Catheter ABP, PAP, CO, CI - Last Documented Arterial Blood Pressure 115/67 - Labs CBC & Chem 7: 04/02/21 06:06 04/02/21 06:06 Labs: Abnormal Lab Results - Last 24 Hours (Table) 04/01/21 04/01/21 04/01/21 Range/Units 04:00 16:47 20:32 WBC (3.8-10.6) k/uL RBC (4.30-5.90) m/uL Hgb (13.0-17.5) gm/dL Hct (39.0-53.0) % Plt Count (150-450) k/uL Neutrophils # (1.3-7.7) k/uL Sodium (137-145) mmol/L BUN (9-20) mg/dL Creatinine (0.66-1.25) mg/dL Glucose (74-99) mg/dL POC Glucose (mg/dL) 255 H 204 H (75-99) mg/dL Hemoglobin A1c 9.2 H (4.0-6.0) % 04/02/21 04/02/21 04/02/21 Range/Units 00:40 05:26 06:06 WBC 15.3 H (3.8-10.6) k/uL RBC 3.88 L (4.30-5.90) m/uL Hgb 11.6 L (13.0-17.5) gm/dL Hct 35.9 L (39.0-53.0) % Plt Count 136 L (150-450) k/uL Neutrophils # 12.3 H (1.3-7.7) k/uL Sodium (137-145) mmol/L BUN (9-20) mg/dL Creatinine (0.66-1.25) mg/dL Glucose (74-99) mg/dL POC Glucose (mg/dL) 137 H 155 H (75-99) mg/dL Hemoglobin A1c (4.0-6.0) % 04/02/21 04/02/21 04/02/21 Range/Units 06:06 09:01 11:43 WBC (3.8-10.6) k/uL RBC (4.30-5.90) m/uL Hgb (13.0-17.5) gm/dL Hct (39.0-53.0) % Plt Count (150-450) k/uL Neutrophils # (1.3-7.7) k/uL Sodium 134 L (137-145) mmol/L BUN 47 H (9-20) mg/dL Creatinine 3.34 H (0.66-1.25) mg/dL Glucose 149 H (74-99) mg/dL POC Glucose (mg/dL) 174 H 151 H (75-99) mg/dL Hemoglobin A1c (4.0-6.0) %
--- NOTE | 2021-04-02 13:49 | P.CNPUL ---
History of Present Illness Consult date: 04/02/21 Requesting physician: Belem Fabian Reason for consult: COPD Chief complaint: Chest discomfort History of present illness: This is a 61-year-old white male with history of multiple medical problems including COPD, chronic kidney disease, diabetes, patient was initially admitted to [facility] with chest discomfort. EKG showed anterolateral ST elevation, patient was transferred to [facility], underwent cardiac catheterization, revealed critical disease involving the proximal LAD with a thrombotic lesion. Patient underwent aspiration thrombectomy and subsequent stenting of the LAD. Patient was also noted to have chronic total occlusion of the right coronary artery. Patient was also noted to have hypotension in the cardiac catheterization lab, hence an Impella was placed. From the right groin, and patient was admitted to the ICU on 03/31/21. Since admission to the ICU, his impella was removed, and the patient has been experiencing intermittent episodes of shortness of breath, cough and wheezing, and intermittent episodes of agitation requiring sedation. Patient was placed on bronchodilators, he was also placed on Solu-Medrol, chest x-ray this morning it is consistent with pulmonary edema. Patient already received Lasix earlier before I saw him, and I have recommended Lasix 40 mg IV push every 12 hours. Echocardiogram on admission showed evidence of severe global hypokinesis of the left ventricle. And severe concentric left ventricular hypertrophy noted. Since admission the patient was also noted to have worsening renal function and he developed acute on chronic kidney disease. His renal functioning has been gradually getting worse. Patient was seen by nephrology, placed on bicarb, patient is known to have history of previous left nephrectomy. Patient is a kidney donor. At any rate considering his shortness of breath, I was asked to see this patient on consultation. Patient is already maximized on bronchodilators and steroids, and I have recommended basically aggressive diuresis after reviewing his chest x-ray and after knowing that the patient has severe LV dysfunction. Review of Systems Constitutional: Generalized weakness and fatigue. Eyes: Negative. Ears: Negative Cardiovascular: As noted in HPI. Respiratory: As noted in HPI. Gastrointestinal: Negative. Genitourinary: Negative Musculoskeletal: Negative Integumentary: Negative Neurological: Mental status change in the last 24 hours, intermittent episodes of agitation while in the ICU. Psychiatric: Negative Endocrine: Negative Hematologic/Lymphatic: Negative Past Medical History Past Medical History: COPD, Diabetes Mellitus Additional Past Medical History / Comment(s): Kidney History of Any Multi-Drug Resistant Organisms: None Reported Past Surgical History: Orthopedic Surgery Additional Past Surgical History / Comment(s): Kidney Past Anesthesia/Blood Transfusion Reactions: No Reported Reaction Past Psychological History: No Psychological Hx Reported Past Alcohol Use History: None Reported Past Drug Use History: None Reported Medications and Allergies Home Medications Medication Instructions Recorded Confirmed Type Atorvastatin [Lipitor] 40 mg PO DAILY 04/01/21 04/01/21 History Carvedilol [Coreg] 25 mg PO BID 04/01/21 04/01/21 History Insulin NPH Hum/Reg Insulin Hm 45 units SQ HS 04/01/21 04/01/21 History [Novolin 70-30 Flexpen] Insulin NPH Hum/Reg Insulin Hm 60 units SQ DAILY 04/01/21 04/01/21 History [Novolin 70-30 Flexpen] Pioglitazone [Actos] 15 mg PO DAILY 04/01/21 04/01/21 History amLODIPine [Norvasc] 10 mg PO DAILY 04/01/21 04/01/21 History hydrALAZINE HCL [Apresoline] 25 mg PO TID 04/01/21 04/01/21 History Ticagrelor [Brilinta] 90 mg PO BID 30 Days #60 tab 04/02/21 Rx Allergies Allergy/AdvReac Type Severity Reaction Status Date / Time aspirin Allergy Anaphylaxis Verified 03/31/21 03:37 NSAIDS (Non-Steroidal Allergy Anaphylaxis Verified 03/31/21 03:37 Anti-Inflamma Physical Exam Vitals: Vital Signs Temp Pulse Resp BP Pulse Ox 04/02/21 11:00 88 20 130/90 95 04/02/21 10:00 82 37 H 137/82 93 L 04/02/21 09:00 96 27 H 128/87 96 04/02/21 08:27 95 04/02/21 08:14 81 04/02/21 08:00 98.5 F 93 29 H 137/79 92 L 04/02/21 07:00 89 17 115/89 97 04/02/21 06:00 87 19 117/73 94 L 04/02/21 05:00 85 25 H 102/77 99 04/02/21 04:45 80 04/02/21 04:00 98.1 F 85 20 106/68 95 04/02/21 03:00 130 H 24 103/69 94 L 10/27/21 02:00 82 13 99/75 99 04/02/21 01:00 80 23 93/73 92 L 04/02/21 00:00 82 15 98/53 96 04/01/21 23:51 20 04/01/21 23:00 80 20 102/73 97 04/01/21 22:00 85 33 H 124/72 97 04/01/21 21:00 89 18 107/76 97 04/01/21 20:00 97.9 F 95 33 H 101/67 95 04/01/21 19:00 94 24 95/58 97 04/01/21 18:00 100 24 139/83 95 04/01/21 17:20 20 04/01/21 17:00 146 H 28 H 92/62 04/01/21 16:40 102 H 24 04/01/21 16:20 99 27 H 04/01/21 16:00 99.0 F 104 H 24 97/73 92 L 04/01/21 15:40 26 H 82 L 04/01/21 15:20 27 H 98 04/01/21 15:00 111 H 26 H 122/84 95 04/01/21 14:40 79 27 H 122/84 95 04/01/21 14:20 82 16 105/87 93 L 04/01/21 14:00 83 16 112/88 93 L 04/01/21 13:45 98.8 F 82 25 H 113/81 92 L Intake and Output 04/01/21 04/02/21 04/02/21 22:59 06:59 14:59 Intake Total 400 400 150 Output Total 550 415 420 Balance -150 -15 -270 Intake: IV 150 400 150 Dextrose 5% in Water 1, 150 400 150 000 ml @ 50 mls/hr IV . Q23H ERIC with Sodium Bicarb (1 Meq/ml) 150 ml Rx#:[id number] Intake, IV Titration 250 Amount Dextrose 5% in Water 1, 250 000 ml @ 50 mls/hr IV . Q23H ERIC with Sodium Bicarb (1 Meq/ml) 150 ml Rx#:[id number] Output: Urine 550 415 420 Other: Voiding Method Indwelling Catheter Indwelling Catheter Physical Exam: Revealed a 61-year-old white male, in no distress. Presently on room air. Head: Atraumatic, normocephalic. HEENT:[Neck is supple.] [No neck masses.] [No thyromegaly.] [No JVD.] Chest: Crackles and rhonchi noted bilaterally. Symmetrical chest expansion. Cardiac Exam: Normal S1 and S2, no S3 gallop, 2/6 systolic murmur thought the precordium. Abdomen: [Soft, nontender, no megaly, no rebound, no guarding, normal bowel sounds.] Extremities: [No clubbing, no edema, no cyanosis.] Neurological Exam: Alert and oriented 3, no gross focal neurologic deficits. Psychiatric: Depressed mood, blunt affect, normal mental status. Results - Laboratory Findings CBC and BMP: 04/02/21 06:06 04/02/21 06:06 PT/INR, D-dimer PT 10.6 sec (9.0-12.0) 04/01/21 04:00 INR 1.0 (<1.2) 04/01/21 04:00 Abnormal lab findings: Abnormal Labs 03/31/21 03/31/21 03/31/21 03:25 03:25 03:25 WBC 15.5 H RBC Hgb Hct Plt Count Neutrophils # 9.6 H APTT 52.5 H Sodium Potassium 3.3 L Chloride 108 H Carbon Dioxide 17 L BUN 22 H Creatinine 2.05 H Glucose 232 H POC Glucose (mg/dL) Hemoglobin A1c Lactate Dehydrogenase Troponin I Ur Specific Capulin Urine Protein Urine Glucose (UA) Urine Blood Amorphous Sediment Urine Bacteria Urine Mucus 03/31/21 03/31/21 03/31/21 03:25 07:02 08:12 WBC RBC Hgb Hct Plt Count Neutrophils # APTT Sodium Potassium Chloride Carbon Dioxide BUN Creatinine Glucose POC Glucose (mg/dL) 370 H 345 H Hemoglobin A1c Lactate Dehydrogenase Troponin I 0.048 H* Ur Specific [place] Urine Protein Urine Glucose (UA) Urine Blood Amorphous Sediment Urine Bacteria Urine Mucus 03/31/21 03/31/21 03/31/21 08:15 08:15 08:15 WBC 20.2 H RBC Hgb Hct Plt Count Neutrophils # 18.0 H APTT 170.3 H* Sodium Potassium Chloride Carbon Dioxide BUN Creatinine Glucose POC Glucose (mg/dL) Hemoglobin A1c Lactate Dehydrogenase Troponin I 551.000 H* Ur Specific [place] Urine Protein Urine Glucose (UA) Urine Blood Amorphous Sediment Urine Bacteria Urine Mucus 03/31/21 03/31/21 03/31/21 08:15 10:42 11:20 WBC RBC Hgb Hct Plt Count Neutrophils # APTT Sodium 136 L Potassium Chloride 108 H Carbon Dioxide 19 L BUN 24 H Creatinine 2.13 H Glucose 365 H POC Glucose (mg/dL) 306 H Hemoglobin A1c Lactate Dehydrogenase Troponin I Ur Specific [place] 1.039 H Urine Protein 3+ H Urine Glucose (UA) 2+ H Urine Blood Large H Amorphous Sediment Rare H Urine Bacteria Rare H Urine Mucus Rare H 03/31/21 03/31/21 03/31/21 11:36 14:20 14:20 WBC RBC Hgb Hct Plt Count Neutrophils # APTT 79.5 H Sodium Potassium Chloride Carbon Dioxide BUN Creatinine Glucose POC Glucose (mg/dL) Hemoglobin A1c Lactate Dehydrogenase 30190 H Troponin I >800.000 H* Ur Specific [place] Urine Protein Urine Glucose (UA) Urine Blood Amorphous Sediment Urine Bacteria Urine Mucus 03/31/21 03/31/21 03/31/21 14:20 14:31 17:01 WBC RBC Hgb Hct Plt Count Neutrophils # APTT 46.9 H Sodium Potassium Chloride Carbon Dioxide BUN Creatinine Glucose POC Glucose (mg/dL) 286 H 249 H Hemoglobin A1c Lactate Dehydrogenase Troponin I Ur Specific [place] Urine Protein Urine Glucose (UA) Urine Blood Amorphous Sediment Urine Bacteria Urine Mucus 03/31/21 03/31/21 03/31/21 17:03 19:12 20:15 WBC 20.1 H RBC Hgb Hct Plt Count Neutrophils # APTT 38.2 H Sodium Potassium Chloride Carbon Dioxide BUN Creatinine Glucose POC Glucose (mg/dL) 193 H Hemoglobin A1c Lactate Dehydrogenase Troponin I Ur Specific [place] Urine Protein Urine Glucose (UA) Urine Blood Amorphous Sediment Urine Bacteria Urine Mucus 03/31/21 03/31/21 04/01/21 21:20 22:25 00:00 WBC RBC Hgb Hct Plt Count Neutrophils # APTT 36.8 H Sodium Potassium Chloride Carbon Dioxide BUN Creatinine Glucose POC Glucose (mg/dL) 187 H Hemoglobin A1c Lactate Dehydrogenase 05606 H Troponin I Ur Specific [place] Urine Protein Urine Glucose (UA) Urine Blood Amorphous Sediment Urine Bacteria Urine Mucus 04/01/21 04/01/21 04/01/21 02:02 02:02 04:00 WBC RBC Hgb Hct Plt Count Neutrophils # APTT 51.2 H Sodium 130 L Potassium Chloride Carbon Dioxide 15 L BUN 33 H Creatinine 2.98 H Glucose 185 H POC Glucose (mg/dL) 198 H Hemoglobin A1c Lactate Dehydrogenase 74086 H Troponin I Ur Specific [place] Urine Protein Urine Glucose (UA) Urine Blood Amorphous Sediment Urine Bacteria Urine Mucus 04/01/21 04/01/21 04/01/21 04:00 04:00 04:00 WBC 20.5 H RBC 4.27 L Hgb 12.7 L Hct Plt Count Neutrophils # 16.6 H APTT 49.2 H Sodium Potassium Chloride Carbon Dioxide BUN Creatinine Glucose POC Glucose (mg/dL) Hemoglobin A1c 9.2 H Lactate Dehydrogenase Troponin I Ur Specific [place] Urine Protein Urine Glucose (UA) Urine Blood Amorphous Sediment Urine Bacteria Urine Mucus 04/01/21 04/01/21 04/01/21 06:31 09:11 11:26 WBC RBC Hgb Hct Plt Count Neutrophils # APTT Sodium Potassium Chloride Carbon Dioxide BUN Creatinine Glucose POC Glucose (mg/dL) 178 H 153 H 135 H Hemoglobin A1c Lactate Dehydrogenase Troponin I Ur Specific [place] Urine Protein Urine Glucose (UA) Urine Blood Amorphous Sediment Urine Bacteria Urine Mucus 04/01/21 04/01/21 04/01/21 13:10 16:47 20:32 WBC RBC Hgb Hct Plt Count Neutrophils # APTT Sodium Potassium Chloride Carbon Dioxide BUN Creatinine Glucose POC Glucose (mg/dL) 143 H 255 H 204 H Hemoglobin A1c Lactate Dehydrogenase Troponin I Ur Specific [place] Urine Protein Urine Glucose (UA) Urine Blood Amorphous Sediment Urine Bacteria Urine Mucus 04/02/21 04/02/21 04/02/21 00:40 05:26 06:06 WBC 15.3 H RBC 3.88 L Hgb 11.6 L Hct 35.9 L Plt Count 136 L Neutrophils # 12.3 H APTT Sodium Potassium Chloride Carbon Dioxide BUN Creatinine Glucose POC Glucose (mg/dL) 137 H 155 H Hemoglobin A1c Lactate Dehydrogenase Troponin I Ur Specific [place] Urine Protein Urine Glucose (UA) Urine Blood Amorphous Sediment Urine Bacteria Urine Mucus 04/02/21 04/02/21 04/02/21 06:06 09:01 11:43 WBC RBC Hgb Hct Plt Count Neutrophils # APTT Sodium 134 L Potassium Chloride Carbon Dioxide BUN 47 H Creatinine 3.34 H Glucose 149 H POC Glucose (mg/dL) 174 H 151 H Hemoglobin A1c Lactate Dehydrogenase Troponin I Ur Specific [place] Urine Protein Urine Glucose (UA) Urine Blood Amorphous Sediment Urine Bacteria Urine Mucus - Diagnostic Findings Chest x-ray: image reviewed (As noted in HPI, consistent with pulmonary edema.) Assessment and Plan Assessment: Impression: Acute ST elevation myocardial infarction, umbilicated by cardiogenic shock status post stent placement and thrombectomy. And status post impella placement. Shortness of breath secondary to acute systolic congestive heart failure, and possibly acute exacerbation of COPD, however I believe the findings on chest x- ray are mostly findings of congestive heart failure/acute systolic in nature. History of severe COPD Acute hypoxic respiratory failure secondary to acute systolic congestive heart failure, and again possibly some component of COPD exacerbation. Acute on chronic kidney injury Severe left ventricular dysfunction. Type 2 diabetes. History of left nephrectomy Tobacco dependence syndrome Recommendation: Continue to monitor in the ICU. Continue bronchodilators and steroids. Continue diuretics. Continue to monitor renal status as the patient is developing acute on chronic kidney injury mostly cardiorenal in nature, and possibly related to recent cardiac catheterization/IV dye Chest x-ray was reviewed and again it is consistent with pulmonary edema. Will continue to follow Time with Patient: Greater than 30
[2021-04-02 16:38] LABS: Glucose,Whole Blood 271 mg/dL (75-99)
[2021-04-02] MEDS: methylPREDNISolone SOD SUCCI 40 MG/ML 1 ML VIAL IV SCH ×2 (16:54→23:15)
[2021-04-02 20:36] LABS: Glucose,Whole Blood 372 mg/dL (75-99)
[2021-04-02] MEDS: ATORVASTATIN 80 MG TAB PO SCH (20:39)
[2021-04-02] MEDS: QUEtiapine 25 MG TAB PO SCH (20:40)
[2021-04-02] MEDS ORDERED: FUROSEMIDE 10 MG/ML 4 ML VIAL IV SCH (21:00)
[2021-04-02] MEDS: SYMBICORT 160-4.5 MCG INHALER INHALATION SCH (21:24)
[2021-04-02 23:13] LABS: Glucose,Whole Blood 269 mg/dL (75-99)
[2021-04-03 03:37] LABS: Glucose,Whole Blood 153 mg/dL (75-99)
[2021-04-03] MEDS: INSULIN ASPART (NovoLOG) 100 UNIT/ML VIAL SQ SCH ×4 (03:45→21:38)
[2021-04-03 05:53] LABS: Basophils % (A) 0 %; Eosinophils % (A) 0 %; HCT 33.4 % (39.0-53.0); HGB 11.6 gm/dL (13.0-17.5); Lymphocytes # (A) 0.8 k/uL (1.0-4.8); Lymphocytes % (A) 5 %; MCH 31.1 pg (25.0-35.0); MCHC 34.7 g/dL (31.0-37.0); MCV 89.5 fL (80.0-100.0); Mean Platelet Volume 10.8; Monocytes # (A) 0.5 k/uL (0-1.0); Monocytes % (A) 3 %; Neutrophils # (A) 13.8 k/uL (1.3-7.7); Neutrophils % (A) 90 %; Platelet Count 150 k/uL (150-450); RBC 3.73 m/uL (4.30-5.90); RDW 14.1 % (11.5-15.5); WBC 15.3 k/uL (3.8-10.6)
[2021-04-03 05:56] LABS: Calcium 8.8 mg/dL (8.4-10.2); Magnesium 2.2 mg/dL (1.6-2.3); Potassium 3.4 mmol/L (3.5-5.1)
[2021-04-03] MEDS: INSULIN DETEMIR (LEVEMIR) 100 UNIT/ML SYR SQ SCH (06:30)
--- NOTE | 2021-04-03 07:11 | XR ---
EXAMINATION TYPE: XR chest 1V portable DATE OF EXAM: 04/03/2021 HISTORY: Shortness of breath. COMPARISON: 04/02/2021 TECHNIQUE: Single view of the chest is submitted. FINDINGS: Demonstrated are scattered senescent parenchymal change. Stable reticulonodular infiltrate throughout both lung arthur without significant change. The heart is stable. Hilar and mediastinal structures are within normal limits. Degenerative changes are seen of the dorsal spine. IMPRESSION: 1. Stable reticulonodular infiltrate throughout both lung arthur without significant change.
[2021-04-03] MEDS: IPRATROPIUM-ALBUTEROL 3 ML NEB INHALATION SCH ×3 (07:42→19:10)
[2021-04-03] MEDS: SYMBICORT 160-4.5 MCG INHALER INHALATION SCH ×2 (07:42→19:10)
--- NOTE | 2021-04-03 08:33 | PN ---
PROGRESS NOTE Mr. Littlejohn is a 61-year-old male with history of diabetes, hypertension, history of nephrectomy with baseline renal insufficiency, who presented with an acute anterior myocardial infarction, underwent cardiac catheterization and stenting of the LAD proximally. Initially he had an Impella catheter placed. That was removed on Wednesday. He is doing well this morning. His breathing is stable. He is sitting up in the chair. He has no chest discomfort. He denies any dizziness or palpitations. He denies any nausea. He has continued to be in sinus mechanism. He is on Brilinta 90 mg twice a day, Lasix 40 mg IV q.12 hours, lisinopril 2.5 mg daily, metoprolol tartrate 25 mg three times a day, Lipitor 80 mg daily. He was started on Solu-Medrol. PHYSICAL EXAMINATION: Blood pressure is running in the 120s with a heart rate in the 80s. LUNGS: No wheezes or rales. HEART: Regular rate and rhythm. S1, S2. No S3, with systolic murmur. No diastolic murmur. ABDOMEN: Soft, nontender. Positive bowel sounds. EXTREMITIES: No edema. LAB DATA: BUN and creatinine 58 and 3.21 with no significant worsening compared to yesterday. His hemoglobin is 11.6, white blood cells 15.3, which is similar to yesterday. IMPRESSION: 1. Status post large anterior myocardial infarction with stenting of the LAD. 2. Severe ischemic cardiomyopathy. 3. Evidence of congestive heart failure. 4. History of nephrectomy with renal failure. 5. Diabetes. 6. Hyperlipidemia. RECOMMENDATIONS: Will increase his beta león, continue on the IV Lasix for 24 hours. If he is stable, he may be able to be transferred to the telemetry floor. Depending on his progress, further recommendations will be made. MMODL / IJN: [id number] /
[2021-04-03] MEDS: FUROSEMIDE 10 MG/ML 4 ML VIAL IV SCH ×2 (08:43→16:24)
[2021-04-03] MEDS: TICAGRELOR 90 MG TAB PO SCH ×2 (08:43→21:22)
[2021-04-03] MEDS: METOPROLOL TARTRATE 50 MG TAB PO SCH ×2 (08:43→21:20)
[2021-04-03] MEDS: PANTOPRAZOLE 40 MG/10 ML VIAL IVP SCH (08:43)
[2021-04-03] MEDS: SODIUM BICARBONATE TAB 650 MG TAB PO SCH ×2 (08:44→21:21)
[2021-04-03] MEDS: methylPREDNISolone SOD SUCCI 40 MG/ML 1 ML VIAL IV SCH ×2 (08:44→16:24)
--- NOTE | 2021-04-03 09:08 | P.PN ---
Subjective Patient is seen in follow-up for acute kidney injury on chronic kidney disease. Renal function stable today. On IV Lasix. Nonoliguric. Blood pressure stable. Vital signs are stable. General: The patient appeared well nourished and normally developed. HEENT: Head exam is unremarkable. LUNGS: Breath sounds decreased. HEART: Rate and Rhythm are regular. ABDOMEN: Soft, no distention. EXTREMITITES: Trace edema. Objective - Vital Signs Vital signs: Vital Signs Temp 98.8 F 04/03/21 04:00 Pulse 101 H 04/03/21 07:55 Resp 18 04/03/21 07:55 BP 124/83 04/03/21 07:00 Pulse Ox 94 L 04/03/21 07:42 Intake & Output 04/02/21 04/03/21 04/03/21 18:59 06:59 18:59 Intake Total 240 680 Output Total 2368 1150 0 Balance -2128 -470 0 Weight 101.4 kg Intake: IV 150 300 Dextrose 5% in Water 1, 150 300 000 ml @ 50 mls/hr IV . Q23H ERIC with Sodium Bicarb (1 Meq/ml) 150 ml Rx#:[id number] Intake, IV Titration 90 Amount Sodium Chloride 0.9% 1, 90 000 ml @ 50 mls/hr IV . Q20H ERIC Rx#:[id number] Oral 380 Output: Urine 2368 1150 0 Other: Voiding Method Indwelling Catheter Urinal # Voids 1 ABP, PAP, CO, CI - Last Documented Arterial Blood Pressure 115/67 - Labs CBC & Chem 7: 04/03/21 04:37 04/03/21 04:37 Labs: Abnormal Lab Results - Last 24 Hours (Table) 04/02/21 04/02/21 04/02/21 Range/Units 11:43 16:36 20:34 WBC (3.8-10.6) k/uL RBC (4.30-5.90) m/uL Hgb (13.0-17.5) gm/dL Hct (39.0-53.0) % Neutrophils # (1.3-7.7) k/uL Lymphocytes # (1.0-4.8) k/uL Sodium (137-145) mmol/L Potassium (3.5-5.1) mmol/L BUN (9-20) mg/dL Creatinine (0.66-1.25) mg/dL Glucose (74-99) mg/dL POC Glucose (mg/dL) 151 H 271 H 372 H (75-99) mg/dL 04/02/21 04/03/21 04/03/21 Range/Units 23:11 03:36 04:37 WBC 15.3 H (3.8-10.6) k/uL RBC 3.73 L (4.30-5.90) m/uL Hgb 11.6 L (13.0-17.5) gm/dL Hct 33.4 L (39.0-53.0) % Neutrophils # 13.8 H (1.3-7.7) k/uL Lymphocytes # 0.8 L (1.0-4.8) k/uL Sodium (137-145) mmol/L Potassium (3.5-5.1) mmol/L BUN (9-20) mg/dL Creatinine (0.66-1.25) mg/dL Glucose (74-99) mg/dL POC Glucose (mg/dL) 269 H 153 H (75-99) mg/dL 04/03/21 Range/Units 04:37 WBC (3.8-10.6) k/uL RBC (4.30-5.90) m/uL Hgb (13.0-17.5) gm/dL Hct (39.0-53.0) % Neutrophils # (1.3-7.7) k/uL Lymphocytes # (1.0-4.8) k/uL Sodium 135 L (137-145) mmol/L Potassium 3.4 L (3.5-5.1) mmol/L BUN 58 H (9-20) mg/dL Creatinine 3.21 H (0.66-1.25) mg/dL Glucose 131 H (74-99) mg/dL POC Glucose (mg/dL) (75-99) mg/dL Assessment and Plan Plan: Assessment: 1. Acute kidney injury secondary to ATN secondary to acute UT/cardiogenic shock and contrast-induced acute kidney injury. Renal function stable compared to yesterday. Nonoliguric. 2. Chronic kidney disease stage IIIB secondary to solitary right kidney and di abetic kidney disease. Creatinine in April 2018 was near 1.8. 3. Status post left nephrectomy. Patient is a kidney donor. 4. Metabolic acidosis secondary to acute kidney injury and IV fluids. Improved post bicarb drip. On oral bicarb. 5. Hypokalemia from poor intake and diuresis. 6. Diabetes. 7. STEMI status post cardiac catheterization with LAD stenting as well as Impella placement. Impeller removed April 01. Plan: Maintain IV Lasix for now - transition to oral diuretics in the next 24-48 hours. Replace potassium. Avoid nephrotoxins. Continue to monitor renal function and urine output.
[2021-04-03] MEDS: POTASSIUM CHLORIDE ER 20 MEQ TAB.ER PO STA ×2 (09:45→10:42)
[2021-04-03 11:47] LABS: Glucose,Whole Blood 302 mg/dL (75-99)
[2021-04-03] MEDS ORDERED: INSULIN DETEMIR (LEVEMIR) 100 UNIT/ML SYR SQ SCH (12:15)
[2021-04-03] MEDS: INSULN ASP PRT/INSULIN ASPART 100 UNIT/ML 10 ML VIAL SQ SCH (12:32)
--- NOTE | 2021-04-03 12:59 | P.PN ---
Subjective Progress Note Date: 04/03/21 Principal diagnosis: Acute ST elevation myocardial infarction, complicated by cardiogenic shock status post stent placement and thrombectomy. And status post impella placement. This is a 61-year-old white male with history of multiple medical problems including COPD, chronic kidney disease, diabetes, patient was initially admitted to [facility] with chest discomfort. EKG showed anterolateral ST elevation, patient was transferred to [facility], underwent cardiac catheterization, revealed critical disease involving the proximal LAD with a thrombotic lesion. Patient underwent aspiration thrombectomy and subsequent stenting of the LAD. Patient was also noted to have chronic total occlusion of the right coronary artery. Patient was also noted to have hypotension in the cardiac catheterization lab, hence an Impella was placed. From the right groin, and patient was admitted to the ICU on 03/31/21. Since admission to the ICU, his impella was removed, and the patient has been experiencing intermittent episodes of shortness of breath, cough and wheezing, and intermittent episodes of agitation requiring sedation. Patient was placed on bronchodilators, he was also placed on Solu-Medrol, chest x-ray this morning it is consistent with pulmonary edema. Patient already received Lasix earlier before I saw him, and I have recommended Lasix 40 mg IV push every 12 hours. Echocardiogram on admission showed evidence of severe global hypokinesis of the left ventricle. And severe concentric left ventricular hypertrophy noted. Since admission the patient was also noted to have worsening renal function and he developed acute on chronic kidney disease. His renal functioning has been gradually getting worse. Patient was seen by nephrology, placed on bicarb, patient is known to have history of previous left nephrectomy. Patient is a kidney donor. At any rate considering his shortness of breath, I was asked to see this patient on consultation. Patient is already maximized on bronchodilators and steroids, and I have recommended basically aggressive diuresis after reviewing his chest x-ray and after knowing that the patient has severe LV dysfunction. Reevaluated today on 04/03/21, patient seems to be doing a bit better today comp ared to yesterday. His chest x-ray is still consistent with interstitial edema, his BNP level was noted to be significantly elevated over 6000, patient is improving clinically with diuretics, and his renal functioning is not getting much worse. Hence I'm recommending increasing the Lasix to 40 mg IV push every 8 hours. WBC count today is 15.3 hemoglobin 11.6 electrolytes are normal BUN is 58 creatinine 3.21. Slightly better today compared to yesterday. His baseline creatinine on admission was 2.05 Objective - Vital Signs Vital signs: Vital Signs Temp 97.7 F 04/03/21 12:00 Pulse 93 04/03/21 12:00 Resp 27 H 04/03/21 12:21 BP 88/67 04/03/21 12:00 Pulse Ox 92 L 04/03/21 12:00 Intake & Output 04/02/21 04/03/21 04/03/21 18:59 06:59 18:59 Intake Total 240 680 370 Output Total 2368 1150 550 Balance -2128 -470 -180 Weight 101.4 kg Intake: IV 150 300 Dextrose 5% in Water 1, 150 300 000 ml @ 50 mls/hr IV . Q23H ERIC with Sodium Bicarb (1 Meq/ml) 150 ml Rx#:[id number] Intake, IV Titration 90 Amount Sodium Chloride 0.9% 1, 90 000 ml @ 50 mls/hr IV . Q20H ERIC Rx#:[id number] Oral 380 370 Output: Urine 2368 1150 550 Other: Voiding Method Indwelling Catheter Urinal Toilet Urinal # Voids 1 ABP, PAP, CO, CI - Last Documented Arterial Blood Pressure 115/67 - Exam Physical Exam: Revealed a 61-year-old white male, in no distress. On 2 L nasal cannula with O2 saturation of 93%. Head: Atraumatic, normocephalic. HEENT:[Neck is supple.] [No neck masses.] [No thyromegaly.] [No JVD.] Chest: Crackles at the bases persist, minimal wheezing on forced expiratory maneuver. Cardiac Exam: Normal S1 and S2, no S3 gallop, 2/6 systolic murmur thought the precordium. Abdomen: [Soft, nontender, no megaly, no rebound, no guarding, normal bowel sounds.] Extremities: [No clubbing, trace of bipedal edema, no cyanosis.] Neurological Exam: Alert and oriented 3, no gross focal neurologic deficits. Psychiatric: Depressed mood, blunt affect, normal mental status. - Labs CBC & Chem 7: 04/03/21 04:37 04/03/21 04:37 Labs: Abnormal Lab Results - Last 24 Hours (Table) 04/02/21 04/02/21 04/02/21 Range/Units 16:36 20:34 23:11 WBC (3.8-10.6) k/uL RBC (4.30-5.90) m/uL Hgb (13.0-17.5) gm/dL Hct (39.0-53.0) % Neutrophils # (1.3-7.7) k/uL Lymphocytes # (1.0-4.8) k/uL Sodium (137-145) mmol/L Potassium (3.5-5.1) mmol/L BUN (9-20) mg/dL Creatinine (0.66-1.25) mg/dL Glucose (74-99) mg/dL POC Glucose (mg/dL) 271 H 372 H 269 H (75-99) mg/dL Procalcitonin (0.02-0.09) ng/mL 04/03/21 04/03/21 04/03/21 Range/Units 03:36 04:37 04:37 WBC 15.3 H (3.8-10.6) k/uL RBC 3.73 L (4.30-5.90) m/uL Hgb 11.6 L (13.0-17.5) gm/dL Hct 33.4 L (39.0-53.0) % Neutrophils # 13.8 H (1.3-7.7) k/uL Lymphocytes # 0.8 L (1.0-4.8) k/uL Sodium 135 L (137-145) mmol/L Potassium 3.4 L (3.5-5.1) mmol/L BUN 58 H (9-20) mg/dL Creatinine 3.21 H (0.66-1.25) mg/dL Glucose 131 H (74-99) mg/dL POC Glucose (mg/dL) 153 H (75-99) mg/dL Procalcitonin (0.02-0.09) ng/mL 04/03/21 04/03/21 Range/Units 04:37 11:45 WBC (3.8-10.6) k/uL RBC (4.30-5.90) m/uL Hgb (13.0-17.5) gm/dL Hct (39.0-53.0) % Neutrophils # (1.3-7.7) k/uL Lymphocytes # (1.0-4.8) k/uL Sodium (137-145) mmol/L Potassium (3.5-5.1) mmol/L BUN (9-20) mg/dL Creatinine (0.66-1.25) mg/dL Glucose (74-99) mg/dL POC Glucose (mg/dL) 302 H (75-99) mg/dL Procalcitonin 1.81 H (0.02-0.09) ng/mL Assessment and Plan Assessment: Impression: Acute ST elevation myocardial infarction, umbilicated by cardiogenic shock status post stent placement and thrombectomy. And status post impella placement. Shortness of breath secondary to acute systolic congestive heart failure, History of severe COPD, possibly slightly active with acute minimal exacerbation. Acute hypoxic respiratory failure secondary to acute systolic congestive heart failure, and again possibly some component of COPD exacerbation. Acute on chronic kidney injury Severe left ventricular dysfunction. Type 2 diabetes. History of left nephrectomy Tobacco dependence syndrome Recommendation: Increase Lasix to 40 mg IV push every 8 hours Continue bronchodilators and steroids.Continue to monitor electrolytes and renal profile. Consider transferring the patient to a monitor bed on selective/cardiac floor. Continue to monitor renal status as the patient is developing acute on chronic kidney injury , multifactorial as noted earlier in my notes. Chest x-ray was reviewed and again it is consistent with pulmonary edema.BNP level was noted to be over 6000 Will continue to follow Time with Patient: Less than 30
--- NOTE | 2021-04-03 14:48 | P.PN ---
Subjective Progress Note Date: 04/03/21 61 years old location male with past medical history of type 2 diabetes, COPD, chronic kidney disease stage III secondary to solitary right kidney as well as diabetic kidney disease is 9 and creatinine 1.8, tobacco abuser, kidney donor came in to the hospital with chest discomfort at [facility]. EKG was suggestive of anterolateral ST MS and was transferred to [facility]. Patient underwent emergent heart catheter revealed proximal LAD occlusion status post thrombectomy and stenting of LAD by Dr. Christiansen. Patient also found to have chronic total occlusion of the right coronary artery. Patient continued to have chest discomfort postprocedure with significant ST segment elevation anteriorly. His blood pressure dropped and was noted to be in nonsustained V. tach and an Impala was placed through the right groin approach. Patient was evaluated in the ICU continued to have intermittent chest pain associated with nausea and vomiting. Patient's emesis was coffee ground in color. He denies any shortness of breath or abdominal pain. Patient denies any history of gastritis or alcohol abuse in the past. Vitals were reviewed patient is afebrile pulse 62 respiratory rate 19 blood pressure 116/94 and oxygen saturation 94% on 6 L. Labs reviewed patient has a leukocytosis of 15 which increased to 20 this morning. Sodium 140 potassium 3.3 status post repletion, chloride 108 bicarb 17 BUN 22 creatinine 2 glucose ranging from 232 to 375 Troponin elevated 0.04 date increased to 551 proBNP 569 albumin 3.6. EKG 03/31 suggestive of anterior infarct sinus tachycardia and right bundle branch block. Echocardiogram suggestive of severe concentric left ventricle hypertrophy with severe global hypokinesis of left ventricle. Left ventricular assist device noted EF not calculated 04/01 patient has been increasingly agitated since the Impala removal from the Lab. Wet of the review patient's afebrile pulse 82 respiratory rate of 25 blood pressure 113/81 and oxygen saturation 92 present 3 L. Ativan initiated at 0.5 mg every 6 hours with Haldol 0.5 mg every 6 hours. QT intervals 450. EKG ordered. Patient to remain on lunchroom monitor for QT prolongation. Since agitation not controlled on Ativan and Haldol will be added 0.5 mg IM every 6 hours. Haldol can be initiated at 10 mg in the 12 hours for agitation. Patient can be started on Seroquel once patient is able to take oral medication. 04/02 patient examined at bedside. He appears restless. Patient received multiple doses of Haldol and Ativan at night. Geodon was initiated for PICC concern for agitation. Patient given one dose of Seroquel last night to help with agitation. Patient is not confused is able to answer questions appropriately but is noted to remove this oxygen intermittently. He does understand to the hospital and needs oxygen. She was noted to be hypoxic this morning at rest. Chest x-ray was obtained that suggested worsening bilateral lung infiltrate diffusely slightly greater on the left suggestive of atypical pulmonary edema and atypical pneumonia. IV Lasix 1 dose given. Pulmonary consulted. Solu-Medrol initiated. DuoNeb initiated at every 6 hours. Ativan was discontinued per pulmonary. We'll discontinue Geodon continue patient on Seroquel vitals are reviewed patient's afebrile. Pulse 88 respiratory rate 20 blood pressure 130/90 oxygen saturation currently 95% on 2 L labs reviewed today WBC is 15.3 improved from 20.5 hemoglobin is 11.6 sodium 134 BUN 47 creatinine 3.34 was sent from 2.94 yesterday. Nephrology recommends holding Lasix. Pulmonary recommends increasing Lasix to 40 IV twice a day. Continue normal saline at 50 mL per hour. Bicarb drip discontinued. 04/03: Patient remains in the intensive care unit, found sitting in a chair eating lunch, family at bedside. Agitation from yesterday is completely resolved. He is denying having any chest pain or palpitations. He states he is not sleeping because the bed is uncomfortable. He is ambulating without symptoms, no lightheadedness or dizziness. Trivedi Catheter Was discontinued yesterday and he has had good urine output. He is scheduled to transferred to [facility] cardiac stepdown unit today. WBC 15.3, hemoglobin 1.6. Potassium 3.4 replaced, BUN 58 creatinine 3.21. But sugars are elevated and patient resumed on home insulin 70/30 at reduced dose. ROS Constitutional: Denies chills, Denies fever, endorses low energy Denies poor appetite, endorses frequent Denies weight loss Eyes: denies decreased vision, denies diplopia, denies discharge, denies pain Ears: deny: decreased hearing Ears, nose, mouth and throat: Denies dental pain, Denies headache, Denies nasal discharge, Denies nose pain Cardiovascular: Denies chest pain, Denies decreased exercise tolerance, Denies edema, Denies high blood pressure, Denies irregular heart beat, Denies palpitations, Denies paroxysmal nocturnal dyspnea, Denies rapid heart beat, Denies shortness of breath Respiratory: Denies congestion, Denies cough, Denies cough with sputum, endorses dyspnea Denies home oxygen, Denies wheezing Gastrointestinal: Denies abdominal pain, Denies change in bowel habits, Denies coffee ground emesis, Denies early satiety, Denies excessive gas, Denies heartburn, Denies hematemesis, Denies hematochezia, Denies loss of appetite, Denies nausea, Denies vomiting Genitourinary: Denies dysuria, Denies flank pain, Denies kidney stones, Denies menorrhagia, Denies urgency, Denies urinary frequency Musculoskeletal: Denies gait dysfunction, Denies limitation of motion, Denies morning stiffness, Denies muscle cramps Integumentary: Denies rash, Denies wounds, Denies brittle nails, Denies change in hair/nails, Denies darkening of skin Neurological: Denies balance difficulties, Denies change in speech, Denies double vision, Denies gait dysfunction, Denies loss of vision, Denies motor di sturbance, Denies numbness, Denies paralysis, Denies paresthesias, Denies seizures Psychiatric: Denies anxiety, Denies depression Endocrine: Denies excessive sweating, Denies excessive thirst, noted high blood sugars, Denies palpitations Hematologic/Lymphatic: Denies easy bruising, Denies lymphadenopathy Physical exam - Constitutional General appearance: cooperative, no acute distress, obese - EENT Eyes: anicteric sclerae, PERRLA, normal appearance ENT: hearing grossly normal - Neck Neck: no lymphadenopathy, normal ROM, no other, no rigidity, no stridor, no thyromegaly - Respiratory Respiratory: bilateral: Decreased air entry with crackles at the bases. - Cardiovascular Rhythm: regular Heart sounds: normal: S1, S2 Abnormal Heart Sounds: no systolic murmur, no diastolic murmur, no rub, no S3 Gallop, no S4 Gallop, no click, no other - Gastrointestinal General gastrointestinal: normal bowel sounds, soft nontender - Integumentary Integumentary: no rash no hematoma noted - Neurologic Neurologic: No sensory or motor deficit - Musculoskeletal Musculoskeletal: strength equal bilaterally - Psychiatric Psychiatric: A&O x's 3, appropriate affect Assessment and plan #1 acute STEMI complicated by cardiogenic shock, status post heart catheterization and stenting of the LAD proximally. Continue patient on atorvastatin 80 mg at bedtime, Lopressor 50 mg twice daily, cardiology consult appreciated. Patient be transferred to the cardiac stepdown unit. #2 acute metabolic encephalopathy secondary to medications, resolved. Ativan discontinued Haldol 0.5 mg every 6 hours and monitor QT intervals. EKG daily. Geodon 10 mg IM every 12 as needed. Seroquel 25 mg at bedtime. #3 acute kidney injury secondary to ATN secondary to acute MS /cardiogenic shock with contrast-induced nephropathy. Avoid nephrotoxic agent #4 acute nausea and vomiting, resolved Protonix can be switched to once a day. Continue to monitor for GI bleed. Zofran initiated for nausea. Reglan 10 IV every 6 hours for nausea control as Zofran and is unable to hold patient's nausea #5 diabetes type 2 uncontrolled with hyperglycemia. A1c 9.2. Patient follows student success coach Dr. Corey. Patient resumed on NovoLog mix units with breakfast and 30 units at bedtime, continue NovoLog scale before meals and at bedtime. #6 chronic kidney disease stage III be secondary to solitary right kidney and diabetic kidney disease Baseline creatinine 1.8 #7 metabolic acidosis secondary to diabetic kidney disease and acute kidney injury #8 status post left nephrectomy #9 COPD with exacerbation continue DuoNeb as needed for shortness of breath and Symbicort twice daily, Solu-Medrol 40 mg every 8 hours. #10 tobacco abuse patient counseled on smoking cessation would like to stop smoking #11Codestatus full code #12 DVT prophylaxis with heparin drip Discharge plan Home Impression and plan of care have been directed as dictated by the signing physician. Leesa Poole nurse practitioner acting as scribe for signing physician. Objective - Vital Signs Vital signs: Vital Signs Temp 97.7 F 04/03/21 08:00 Pulse 88 04/03/21 11:00 Resp 25 H 04/03/21 11:00 BP 105/73 04/03/21 11:00 Pulse Ox 93 L 04/03/21 11:00 Intake & Output 04/02/21 04/03/21 04/03/21 18:59 06:59 18:59 Intake Total 240 680 370 Output Total 2368 1150 550 Balance -7567 -181 -180 Weight 101.4 kg Intake: IV 150 300 Dextrose 5% in Water 1, 150 300 000 ml @ 50 mls/hr IV . Q23H ERIC with Sodium Bicarb (1 Meq/ml) 150 ml Rx#:[id number] Intake, IV Titration 90 Amount Sodium Chloride 0.9% 1, 90 000 ml @ 50 mls/hr IV . Q20H ERIC Rx#:[id number] Oral 380 370 Output: Urine 2368 1150 550 Other: Voiding Method Indwelling Catheter Urinal Toilet Urinal # Voids 1 ABP, PAP, CO, CI - Last Documented Arterial Blood Pressure 115/67 - Labs CBC & Chem 7: 04/03/21 04:37 04/03/21 04:37 Labs: Abnormal Lab Results - Last 24 Hours (Table) 04/02/21 04/02/21 04/02/21 Range/Units 16:36 20:34 23:11 WBC (3.8-10.6) k/uL RBC (4.30-5.90) m/uL Hgb (13.0-17.5) gm/dL Hct (39.0-53.0) % Neutrophils # (1.3-7.7) k/uL Lymphocytes # (1.0-4.8) k/uL Sodium (137-145) mmol/L Potassium (3.5-5.1) mmol/L BUN (9-20) mg/dL Creatinine (0.66-1.25) mg/dL Glucose (74-99) mg/dL POC Glucose (mg/dL) 271 H 372 H 269 H (75-99) mg/dL 04/03/21 04/03/21 04/03/21 Range/Units 03:36 04:37 04:37 WBC 15.3 H (3.8-10.6) k/uL RBC 3.73 L (4.30-5.90) m/uL Hgb 11.6 L (13.0-17.5) gm/dL Hct 33.4 L (39.0-53.0) % Neutrophils # 13.8 H (1.3-7.7) k/uL Lymphocytes # 0.8 L (1.0-4.8) k/uL Sodium 135 L (137-145) mmol/L Potassium 3.4 L (3.5-5.1) mmol/L BUN 58 H (9-20) mg/dL Creatinine 3.21 H (0.66-1.25) mg/dL Glucose 131 H (74-99) mg/dL POC Glucose (mg/dL) 153 H (75-99) mg/dL 04/03/21 Range/Units 11:45 WBC (3.8-10.6) k/uL RBC (4.30-5.90) m/uL Hgb (13.0-17.5) gm/dL Hct (39.0-53.0) % Neutrophils # (1.3-7.7) k/uL Lymphocytes # (1.0-4.8) k/uL Sodium (137-145) mmol/L Potassium (3.5-5.1) mmol/L BUN (9-20) mg/dL Creatinine (0.66-1.25) mg/dL Glucose (74-99) mg/dL POC Glucose (mg/dL) 302 H (75-99) mg/dL
[2021-04-03] MEDS: HEPARIN SODIUM,PORCINE/PF 5,000 UNIT/0.5 ML SYRINGE SQ SCH (16:24)
[2021-04-03 17:02] LABS: Glucose,Whole Blood 317 mg/dL (75-99)
[2021-04-03] MEDS ORDERED: INSULN ASP PRT/INSULIN ASPART 100 UNIT/ML 10 ML VIAL SQ SCH ×2 (21:00)
[2021-04-03] MEDS: ATORVASTATIN 80 MG TAB PO SCH ×2 (21:21→21:22)
[2021-04-03] MEDS: QUEtiapine 25 MG TAB PO SCH (21:22)
[2021-04-03 21:35] LABS: Glucose,Whole Blood 297 mg/dL (75-99)
[2021-04-04] MEDS: FUROSEMIDE 10 MG/ML 4 ML VIAL IV SCH ×3 (00:03→21:02)
[2021-04-04] MEDS: methylPREDNISolone SOD SUCCI 40 MG/ML 1 ML VIAL IV SCH ×2 (00:03→08:48)
[2021-04-04] MEDS: HEPARIN SODIUM,PORCINE/PF 5,000 UNIT/0.5 ML SYRINGE SQ SCH ×2 (00:04→08:49)
[2021-04-04 04:26] LABS: Basophils % (A) 0 %; Eosinophils # (A) 0.1 k/uL (0-0.7); Eosinophils % (A) 1 %; HCT 34.9 % (39.0-53.0); HGB 11.8 gm/dL (13.0-17.5); Lymphocytes # (A) 0.8 k/uL (1.0-4.8); Lymphocytes % (A) 5 %; MCH 31.3 pg (25.0-35.0); MCHC 33.8 g/dL (31.0-37.0); MCV 92.6 fL (80.0-100.0); Mean Platelet Volume 10.8; Monocytes # (A) 0.7 k/uL (0-1.0); Monocytes % (A) 4 %; Neutrophils # (A) 15.8 k/uL (1.3-7.7); Neutrophils % (A) 90 %; Platelet Count 172 k/uL (150-450); RBC 3.77 m/uL (4.30-5.90); RDW 13.7 % (11.5-15.5); WBC 17.6 k/uL (3.8-10.6)
[2021-04-04 04:41] LABS: Calcium 9.2 mg/dL (8.4-10.2); Magnesium 2.1 mg/dL (1.6-2.3); Potassium 3.7 mmol/L (3.5-5.1)
--- NOTE | 2021-04-04 06:59 | XR ---
EXAMINATION TYPE: XR chest 1V portable DATE OF EXAM: 04/04/2021 COMPARISON: 04/03/2021 INDICATION: CHF TECHNIQUE: Single frontal view of the chest is obtained. FINDINGS: The heart size is normal. The pulmonary vasculature is prominent. Diffuse increased lung markings are present bilaterally greater on the left. There may be some improv ement on the right IMPRESSION: 1. Improving diffuse infiltrate. Correlate for resolving congestive heart failure.
[2021-04-04 07:10] LABS: Glucose,Whole Blood 191 mg/dL (75-99)
[2021-04-04] MEDS: IPRATROPIUM-ALBUTEROL 3 ML NEB INHALATION SCH ×3 (07:22→19:36)
[2021-04-04] MEDS: SYMBICORT 160-4.5 MCG INHALER INHALATION SCH ×2 (07:22→19:36)
[2021-04-04] MEDS: INSULIN ASPART (NovoLOG) 100 UNIT/ML VIAL SQ SCH ×5 (07:25→21:01)
[2021-04-04] MEDS: INSULN ASP PRT/INSULIN ASPART 100 UNIT/ML 10 ML VIAL SQ SCH ×2 (07:26→21:01)
[2021-04-04] MEDS: DOXYCYCLINE 100 MG CAP PO SCH ×2 (08:44→21:02)
[2021-04-04] MEDS: SODIUM BICARBONATE TAB 650 MG TAB PO SCH (08:44)
[2021-04-04] MEDS: METOPROLOL TARTRATE 50 MG TAB PO SCH ×2 (08:44→21:02)
[2021-04-04] MEDS: TICAGRELOR 90 MG TAB PO SCH ×2 (08:44→21:02)
[2021-04-04] MEDS: PANTOPRAZOLE 40 MG/10 ML VIAL IVP SCH (08:49)
[2021-04-04] MEDS ORDERED: POTASSIUM CHLORIDE ER 20 MEQ TAB.ER PO STA (09:36)
--- NOTE | 2021-04-04 09:38 | P.PN ---
Subjective Patient is seen in follow-up for acute kidney injury on chronic kidney disease. Renal function stable today. On IV Lasix. Nonoliguric. Blood pressure stable. No active complaints. Vital signs are stable. General: The patient appeared well nourished and normally developed. HEENT: Head exam is unremarkable. LUNGS: Breath sounds decreased. HEART: Rate and Rhythm are regular. ABDOMEN: Soft, no distention. EXTREMITITES: Trace edema. Objective - Vital Signs Vital signs: Vital Signs Temp 97.7 F 04/04/21 08:00 Pulse 90 04/04/21 08:00 Resp 21 04/04/21 08:00 BP 97/70 04/04/21 08:00 Pulse Ox 94 L 04/04/21 08:00 Intake & Output 04/03/21 04/04/21 04/04/21 18:59 06:59 18:59 Intake Total 490 120 Output Total 1550 1045 Balance -1060 -1045 120 Intake: Oral 490 120 Output: Urine 1550 1045 Other: Voiding Method Toilet Toilet Toilet Urinal Urinal Urinal ABP, PAP, CO, CI - Last Documented Arterial Blood Pressure 115/67 - Labs CBC & Chem 7: 04/04/21 04:06 04/04/21 04:06 Labs: Abnormal Lab Results - Last 24 Hours (Table) 04/03/21 04/03/21 04/03/21 Range/Units 04:37 11:45 17:00 WBC (3.8-10.6) k/uL RBC (4.30-5.90) m/uL Hgb (13.0-17.5) gm/dL Hct (39.0-53.0) % Neutrophils # (1.3-7.7) k/uL Lymphocytes # (1.0-4.8) k/uL BUN (9-20) mg/dL Creatinine (0.66-1.25) mg/dL Glucose (74-99) mg/dL POC Glucose (mg/dL) 302 H 317 H (75-99) mg/dL Procalcitonin 1.81 H (0.02-0.09) ng/mL 04/03/21 04/04/21 04/04/21 Range/Units 21:33 04:06 04:06 WBC 17.6 H (3.8-10.6) k/uL RBC 3.77 L (4.30-5.90) m/uL Hgb 11.8 L (13.0-17.5) gm/dL Hct 34.9 L (39.0-53.0) % Neutrophils # 15.8 H (1.3-7.7) k/uL Lymphocytes # 0.8 L (1.0-4.8) k/uL BUN 66 H (9-20) mg/dL Creatinine 3.29 H (0.66-1.25) mg/dL Glucose 141 H (74-99) mg/dL POC Glucose (mg/dL) 297 H (75-99) mg/dL Procalcitonin (0.02-0.09) ng/mL 04/04/21 Range/Units 07:08 WBC (3.8-10.6) k/uL RBC (4.30-5.90) m/uL Hgb (13.0-17.5) gm/dL Hct (39.0-53.0) % Neutrophils # (1.3-7.7) k/uL Lymphocytes # (1.0-4.8) k/uL BUN (9-20) mg/dL Creatinine (0.66-1.25) mg/dL Glucose (74-99) mg/dL POC Glucose (mg/dL) 191 H (75-99) mg/dL Procalcitonin (0.02-0.09) ng/mL Assessment and Plan Plan: Assessment: 1. Acute kidney injury secondary to ATN secondary to acute MA/cardiogenic shock and contrast-induced acute kidney injury. Renal function fairly stable compared to yesterday. Nonoliguric. 2. Chronic kidney disease stage IIIB secondary to solitary right kidney and diabetic kidney disease. Creatinine in April 2018 was near 1.8. 3. Status post left nephrectomy. Patient is a kidney donor. 4. Metabolic acidosis secondary to acute kidney injury and IV fluids. Improved post bicarb drip. On oral bicarb. 5. Hypokalemia from poor intake and diuresis. Replace. Better. 6. Diabetes. 7. STEMI status post cardiac catheterization with LAD stenting as well as Impella placement. Impella removed April 01. Plan: Decrease Lasix to 40 mg IV twice daily. Replace potassium. Decrease dose of bicarbonate to once daily. Avoid nephrotoxins. Continue to monitor renal function and urine output. Follow-up echocardiogram.
--- NOTE | 2021-04-04 10:47 | PN ---
PROGRESS NOTE Mr. Littlejohn is a 61-year-old male who is status post nephrectomy. He presented with acute anterior wall myocardial infarction, underwent stenting and subsequent Impella catheter placement. The catheter was removed. He is sitting up in the chair. He is feeling well. His breathing is better. He is denying any symptoms of chest pain. He denies any dizziness or palpitations. He denies any nausea. Hemodynamically, he continues to be in sinus mechanism. There is no evidence of ventricular ectopic activity. Chest x-ray shows evidence of fluid overload. He continues to be on Lasix 40 mg IV q.8 hours, Brilinta 90 mg twice a day, insulin, Lipitor 80 mg daily, lisinopril 2.5 mg daily, metoprolol tartrate 50 mg twice a day. PHYSICAL EXAMINATION: Blood pressure is running in the high 90s. Heart rate in the 80s and 90s. LUNGS: A few crackles. No wheezes. HEART: Regular rate and rhythm. S1, S2, plus S4. No rub. ABDOMEN: Soft, nontender. EXTREMITIES: No edema. LAB DATA: Hemoglobin 11.8, white blood cells 17.6. BUN and creatinine of 66 and 3.29. There are no significant changes in his creatinine. IMPRESSION: 1. Severe ischemic cardiomyopathy, status post anterior myocardial infarction with symptoms of congestive heart failure, status post myocardial infarction. 2. Status post stenting of the LAD. 3. Chronic kidney disease, status post nephrectomy. 4. History of diabetes. 5. History of hyperlipidemia. RECOMMENDATIONS: I will cut down the dose of his IV Lasix to twice a day. Will follow his renal function. If his renal function is stable, he may be a candidate for the addition of spironolactone. He will have a repeat echocardiogram today to evaluate the left ventricular systolic function. In the meantime, will continue on the beta león and the TIFFANY inhibitor as present. Continue to increase his level activity gradually. Depending on his progress, further recommendations will be made. MMODL / IJN: [id number] /
--- NOTE | 2021-04-04 11:01 | ECHOF ---
Referral Reason:LV function MEASUREMENTS -------- HEIGHT: 175.3 cm WEIGHT: 101.2 kg BP: IVSd: 1.4 cm (0.6 - 1.1) LVIDd: 4.6 cm (3.9 - 5.3) LVPWd: 1.6 cm (0.6 - 1.1) IVSs: 1.4 cm LVIDs: 4.0 cm LVPWs: 1.3 cm FINDINGS -------- The left ventricular size is normal. There is moderate concentric left ventricular hypertrophy. O verall left ventricular systolic function is severely impaired with, an EF between 20 - 25 %. The mass is located in the apical portion of the left ventricle. There is no pericardial effusion. CONCLUSIONS -------- 1. There is moderate concentric left ventricular hypertrophy. 2. Overall left ventricular systolic function is severely impaired with, an EF between 20 - 25 %. 3. The mass is located in the apical portion of the left ventricle- suggestive of thrombus 4. There is no pericardial effusion. akinetic apex FORESTRY CONTRACTOR: Kimberly Young [facility]
[2021-04-04] MEDS: APIXABAN 2.5 MG TABLET PO SCH ×2 (11:19→21:02)
--- NOTE | 2021-04-04 11:35 | P.PN ---
Subjective Progress Note Date: 04/04/21 61 years old location male with past medical history of type 2 diabetes, COPD, chronic kidney disease stage III secondary to solitary right kidney as well as diabetic kidney disease is 9 and creatinine 1.8, tobacco abuser, kidney donor came in to the hospital with chest discomfort at [facility]. EKG was suggestive of anterolateral ST [facility] and was transferred to [facility]. Patient underwent emergent heart catheter revealed proximal LAD occlusion status post thrombectomy and stenting of LAD by Dr. Christiansen. Patient also found to have chronic total occlusion of the right coronary artery. Patient continued to have chest discomfort postprocedure with significant ST segment elevation anteriorly. His blood pressure dropped and was noted to be in nonsustained V. tach and an Impala was placed through the right groin approach. Patient was evaluated in the ICU continued to have intermittent chest pain associated with nausea and vomiting. Patient's emesis was coffee ground in color. He denies any shortness of breath or abdominal pain. Patient denies any history of gastritis or alcohol abuse in the past. Vitals were reviewed patient is afebrile pulse 62 respiratory rate 19 blood pressure 116/94 and oxygen saturation 94% on 6 L. Labs reviewed patient has a leukocytosis of 15 which increased to 20 this morning. Sodium 140 potassium 3.3 status post repletion, chloride 108 bicarb 17 BUN 22 creatinine 2 glucose ranging from 232 to 375 Troponin elevated 0.04 date increased to 551 proBNP 569 albumin 3.6. EKG 03/31 suggestive of anterior infarct sinus tachycardia and right bundle branch block. Echocardiogram suggestive of severe concentric left ventricle hypertrophy with severe global hypokinesis of left ventricle. Left ventricular assist device noted EF not calculated 04/01 patient has been increasingly agitated since the Impala removal from the Lab. Wet of the review patient's afebrile pulse 82 respiratory rate of 25 blood pressure 113/81 and oxygen saturation 92 present 3 L. Ativan initiated at 0.5 mg every 6 hours with Haldol 0.5 mg every 6 hours. QT intervals 450. EKG ordered. Patient to remain on quality assurance monitor final for QT prolongation. Since agitation not controlled on Ativan and Haldol will be added 0.5 mg IM every 6 hours. Haldol can be initiated at 10 mg in the 12 hours for agitation. Patient can be started on Seroquel once patient is able to take oral medication. 04/02 patient examined at bedside. He appears restless. Patient received multiple doses of Haldol and Ativan at night. Geodon was initiated for PICC concern for agitation. Patient given one dose of Seroquel last night to help with agitation. Patient is not confused is able to answer questions appropriately but is noted to remove this oxygen intermittently. He does understand to the hospital and needs oxygen. She was noted to be hypoxic this morning at rest. Chest x-ray was obtained that suggested worsening bilateral lung infiltrate diffusely slightly greater on the left suggestive of atypical pulmonary edema and atypical pneumonia. IV Lasix 1 dose given. Pulmonary consulted. Solu-Medrol initiated. DuoNeb initiated at every 6 hours. Ativan was discontinued per pulmonary. We'll discontinue Geodon continue patient on Seroquel vitals are reviewed patient's afebrile. Pulse 88 respiratory rate 20 blood pressure 130/90 oxygen saturation currently 95% on 2 L labs reviewed today WBC is 15.3 improved from 20.5 hemoglobin is 11.6 sodium 134 BUN 47 creatinine 3.34 was sent from 2.94 yesterday. Nephrology recommends holding Lasix. Pulmonary recommends increasing Lasix to 40 IV twice a day. Continue normal saline at 50 mL per hour. Bicarb drip discontinued. 04/03: Patient remains in the intensive care unit, found sitting in a chair eating lunch, family at bedside. Agitation from yesterday is completely resolved. He is denying having any chest pain or palpitations. He states he is not sleeping because the bed is uncomfortable. He is ambulating without symptoms, no lightheadedness or dizziness. Trivedi Catheter Was discontinued yesterday and he has had good urine output. He is scheduled to transferred to [facility] cardiac stepdown unit today. WBC 15.3, hemoglobin 1.6. Potassium 3.4 replaced, BUN 58 creatinine 3.21. But sugars are elevated and patient resumed on home insulin 70/30 at reduced dose. 04/04: Patient remains in the intensive care unit waiting for a cardiac stepdown bed. Repeat echocardiogram this morning reveals a mass located in the apical portion of the left ventricle, EF between 20 and 25%. Chest x-ray reveals improving diffuse infiltrate, correlate for resolving congestive heart failure. Lasix has decreased to 40 mg IV twice daily and potassium replaced today, bicarbonate decreased to once daily. Patient is afebrile, heart rate in the 90s, blood pressure 97/70, pulse ox 94% on room air. Blood sugars are running 191-317 overnight. Solu-Medrol will be transitioned to prednisone with expected improvement in blood sugars and we will keep insulin at current dose. BUN is 66 and creatinine 3.29. WBC 17.6, hemoglobin 11.8, platelet count 172. conveyor monitor sinus rhythm. Patient's mental status has remained stable, alert and oriented 3. Patient started on oral doxycycline by pulmonary medicine. ROS Constitutional: Denies chills, Denies fever, endorses low energy Denies poor appetite, endorses frequent Denies weight loss Eyes: denies decreased vision, denies diplopia, denies discharge, denies pain Ears: deny: decreased hearing Ears, nose, mouth and throat: Denies dental pain, Denies headache, Denies nasal discharge, Denies nose pain Cardiovascular: Denies chest pain, Denies decreased exercise tolerance, Denies edema, Denies high blood pressure, Denies irregular heart beat, Denies palpitations, Denies paroxysmal nocturnal dyspnea, Denies rapid heart beat, Denies shortness of breath Respiratory: Denies congestion, Denies cough, Denies cough with sputum, endorses dyspnea Denies home oxygen, Denies wheezing Gastrointestinal: Denies abdominal pain, Denies change in bowel habits, Denies coffee ground emesis, Denies early satiety, Denies excessive gas, Denies heartburn, Denies hematemesis, Denies hematochezia, Denies loss of appetite, Denies nausea, Denies vomiting Genitourinary: Denies dysuria, Denies flank pain, Denies kidney stones, Denies menorrhagia, Denies urgency, Denies urinary frequency Musculoskeletal: Denies gait dysfunction, Denies limitation of motion, Denies morning stiffness, Denies muscle cramps Integumentary: Denies rash, Denies wounds, Denies brittle nails, Denies change in hair/nails, Denies darkening of skin Neurological: Denies balance difficulties, Denies change in speech, Denies double vision, Denies gait dysfunction, Denies loss of vision, Denies motor disturbance, Denies numbness, Denies paralysis, Denies paresthesias, Denies seizures Psychiatric: Denies anxiety, Denies depression Endocrine: Denies excessive sweating, Denies excessive thirst, noted high blood sugars Hematologic/Lymphatic: Denies easy bruising, Denies lymphadenopathy Physical exam - Constitutional General appearance: cooperative, no acute distress, obese, resting in chair in the ICU - EENT Eyes: anicteric sclerae, PERRLA, normal appearance ENT: hearing grossly normal - Neck Neck: no lymphadenopathy, normal ROM, no other, no rigidity, no stridor, no thyromegaly - Respiratory Respiratory: bilateral: Decreased air entry with crackles at the bases. - Cardiovascular Rhythm: regular Heart sounds: normal: S1, S2 Abnormal Heart Sounds: no systolic murmur, no diastolic murmur, no rub, no S3 Gallop, no S4 Gallop, no click, no other - Gastrointestinal General gastrointestinal: normal bowel sounds, soft nontender - Integumentary Integumentary: no rash no hematoma noted - Neurologic Neurologic: No sensory or motor deficit - Musculoskeletal Musculoskeletal: strength equal bilaterally - Psychiatric Psychiatric: A&O x's 3, appropriate affect Assessment and plan #1 acute anterior STEMI complicated by cardiogenic shock, status post heart catheterization and stenting of the LAD proximally, status post Impella catheter and removal. Continue patient on atorvastatin 80 mg at bedtime, Lopressor 50 mg twice daily, cardiology consult appreciated. Patient be transferred to the cardiac stepdown unit. #2 acute metabolic encephalopathy secondary to medications, resolved. Ativan discontinued, status post Haldol 0.5 mg 1 and Geodon 10 mg IM 1. Continue Seroquel 25 mg at bedtime. #3 acute kidney injury secondary to ATN secondary to acute VA /cardiogenic shock with contrast-induced nephropathy. Avoid nephrotoxic agent #4 acute nausea and vomiting, resolved. Protonix switched to once daily oral. Continue to monitor for GI bleed. Zofran as needed, Reglan discontinued #5 diabetes type 2 uncontrolled with hyperglycemia. A1c 9.2. Patient follows catalyst unit operator Dr. Julio Fabian. Patient resumed on NovoLog mix 70/30 at 40 units twice daily, continue NovoLog scale before meals and at bedtime. #6 chronic kidney disease stage III be secondary to solitary right kidney status post left nephrectomy and diabetic kidney disease Baseline creatinine 1.8 #7 metabolic acidosis secondary to diabetic kidney disease and acute kidney injury #8 severe ischemic cardiomyopathy with acute systolic heart failure. Continue Lasix decreased to 40 mg twice daily, lisinopril 2.5 mg daily, Lopressor 50 mg twice daily. #9 COPD with exacerbation continue DuoNeb as needed for shortness of breath and Symbicort twice daily, Solu-Medrol transitioned to oral prednisone. #10 tobacco abuse patient counseled on smoking cessation would like to stop smoking #11Codestatus full code #12 DVT prophylaxis with heparin drip Discharge plan Home Impression and plan of care have been directed as dictated by the signing physician. Leesa Poole nurse practitioner acting as scribe for signing physician. Objective - Vital Signs Vital signs: Vital Signs Temp 97.7 F 04/04/21 08:00 Pulse 90 04/04/21 08:00 Resp 21 04/04/21 08:00 BP 97/70 04/04/21 08:00 Pulse Ox 94 L 04/04/21 08:00 Intake & Output 04/03/21 04/04/21 04/04/21 18:59 06:59 18:59 Intake Total 490 120 Output Total 1550 1045 Balance -1060 -1045 120 Intake: Oral 490 120 Output: Urine 1550 1045 Other: Voiding Method Toilet Toilet Toilet Urinal Urinal Urinal ABP, PAP, CO, CI - Last Documented Arterial Blood Pressure 115/67 - Labs CBC & Chem 7: 04/04/21 04:06 04/04/21 04:06 Labs: Abnormal Lab Results - Last 24 Hours (Table) 04/03/21 04/03/21 04/03/21 Range/Units 04:37 11:45 17:00 WBC (3.8-10.6) k/uL RBC (4.30-5.90) m/uL Hgb (13.0-17.5) gm/dL Hct (39.0-53.0) % Neutrophils # (1.3-7.7) k/uL Lymphocytes # (1.0-4.8) k/uL BUN (9-20) mg/dL Creatinine (0.66-1.25) mg/dL Glucose (74-99) mg/dL POC Glucose (mg/dL) 302 H 317 H (75-99) mg/dL Procalcitonin 1.81 H (0.02-0.09) ng/mL 04/03/21 04/04/21 04/04/21 Range/Units 21:33 04:06 04:06 WBC 17.6 H (3.8-10.6) k/uL RBC 3.77 L (4.30-5.90) m/uL Hgb 11.8 L (13.0-17.5) gm/dL Hct 34.9 L (39.0-53.0) % Neutrophils # 15.8 H (1.3-7.7) k/uL Lymphocytes # 0.8 L (1.0-4.8) k/uL BUN 66 H (9-20) mg/dL Creatinine 3.29 H (0.66-1.25) mg/dL Glucose 141 H (74-99) mg/dL POC Glucose (mg/dL) 297 H (75-99) mg/dL Procalcitonin (0.02-0.09) ng/mL 04/04/21 Range/Units 07:08 WBC (3.8-10.6) k/uL RBC (4.30-5.90) m/uL Hgb (13.0-17.5) gm/dL Hct (39.0-53.0) % Neutrophils # (1.3-7.7) k/uL Lymphocytes # (1.0-4.8) k/uL BUN (9-20) mg/dL Creatinine (0.66-1.25) mg/dL Glucose (74-99) mg/dL POC Glucose (mg/dL) 191 H (75-99) mg/dL Procalcitonin (0.02-0.09) ng/mL
[2021-04-04 11:53] LABS: Glucose,Whole Blood 208 mg/dL (75-99)
--- NOTE | 2021-04-04 12:29 | P.PN ---
Subjective Progress Note Date: 04/04/21 Principal diagnosis: Acute ST elevation myocardial infarction, complicated by cardiogenic shock status post stent placement and thrombectomy. And status post impella placement. This is a 61-year-old white male with history of multiple medical problems including COPD, chronic kidney disease, diabetes, patient was initially admitted to [facility] with chest discomfort. EKG showed anterolateral ST elevation, patient was transferred to [facility], underwent cardiac catheterization, revealed critical disease involving the proximal LAD with a thrombotic lesion. Patient underwent aspiration thrombectomy and subsequent stenting of the LAD. Patient was also noted to have chronic total occlusion of the right coronary artery. Patient was also noted to have hypotension in the cardiac catheterization lab, hence an Impella was placed. From the right groin, and patient was admitted to the ICU on 03/31/21. Since admission to the ICU, his impella was removed, and the patient has been experiencing intermittent episodes of shortness of breath, cough and wheezing, and intermittent episodes of agitation requiring sedation. Patient was placed on bronchodilators, he was also placed on Solu-Medrol, chest x-ray this morning it is consistent with pulmonary edema. Patient already received Lasix earlier before I saw him, and I have recommended Lasix 40 mg IV push every 12 hours. Echocardiogram on admission showed evidence of severe global hypokinesis of the left ventricle. And severe concentric left ventricular hypertrophy noted. Since admission the patient was also noted to have worsening renal function and he developed acute on chronic kidney disease. His renal functioning has been gradually getting worse. Patient was seen by nephrology, placed on bicarb, patient is known to have history of previous left nephrectomy. Patient is a kidney donor. At any rate considering his shortness of breath, I was asked to see this patient on consultation. Patient is already maximized on bronchodilators and steroids, and I have recommended basically aggressive diuresis after reviewing his chest x-ray and after knowing that the patient has severe LV dysfunction. Reevaluated today on 04/03/21, patient seems to be doing a bit better today comp ared to yesterday. His chest x-ray is still consistent with interstitial edema, his BNP level was noted to be significantly elevated over 6000, patient is improving clinically with diuretics, and his renal functioning is not getting much worse. Hence I'm recommending increasing the Lasix to 40 mg IV push every 8 hours. WBC count today is 15.3 hemoglobin 11.6 electrolytes are normal BUN is 58 creatinine 3.21. Slightly better today compared to yesterday. His baseline creatinine on admission was 2.05 Reevaluated today on 04/04/21, patient remains in the ICU as an overflow, he is on room air with O2 saturations 95%, remains on Lasix however we cut down the dose to 40 mg twice a day. Considering his slightly elevated pro calcitonin, I added doxycycline yesterday, although my index of suspicion for pulmonary infection is extremely low. Patient didn't respond well to diuretics, chest x- ray continues to show left sided interstitial edema/infiltrates. Clinically the patient made a significant improvement, and I could possibly recommended transferring the patient out of the ICU to a monitor bed on . CBC today showed WBC count of 17.6 hemoglobin 11.8. Renal profile is holding with a BUN of 66 creatinine 3.29. Objective - Vital Signs Vital signs: Vital Signs Temp 98 F 04/04/21 11:15 Pulse 89 04/04/21 11:15 Resp 23 04/04/21 11:27 BP 98/70 04/04/21 11:15 Pulse Ox 92 L 04/04/21 11:15 Intake & Output 04/03/21 04/04/21 04/04/21 18:59 06:59 18:59 Intake Total 490 590 Output Total 1550 1045 Balance -1060 -1045 590 Intake: Oral 490 470 Tube Feeding 120 Output: Urine 1550 1045 Other: Voiding Method Toilet Toilet Toilet Urinal Urinal Urinal ABP, PAP, CO, CI - Last Documented Arterial Blood Pressure 115/67 - Exam Physical Exam: Revealed a 61-year-old white male, in no distress. On room air. Head: Atraumatic, normocephalic. HEENT:[Neck is supple.] [No neck masses.] [No thyromegaly.] [No JVD.] Chest: Crackles at the bases persist, otherwise negative. Symmetrical chest expansion noted. Cardiac Exam: Normal S1 and S2, no S3 gallop, 2/6 systolic murmur thought the precordium. Abdomen: [Soft, nontender, no megaly, no rebound, no guarding, normal bowel sounds.] Extremities: [No clubbing, trace of bipedal edema, no cyanosis.] Neurological Exam: Alert and oriented 3, no gross focal neurologic deficits. Psychiatric: Normal mood, affect and normal mental status examination. - Labs CBC & Chem 7: 04/04/21 04:06 04/04/21 04:06 Labs: Abnormal Lab Results - Last 24 Hours (Table) 04/03/21 04/03/21 04/04/21 Range/Units 17:00 21:33 04:06 WBC (3.8-10.6) k/uL RBC (4.30-5.90) m/uL Hgb (13.0-17.5) gm/dL Hct (39.0-53.0) % Neutrophils # (1.3-7.7) k/uL Lymphocytes # (1.0-4.8) k/uL BUN 66 H (9-20) mg/dL Creatinine 3.29 H (0.66-1.25) mg/dL Glucose 141 H (74-99) mg/dL POC Glucose (mg/dL) 317 H 297 H (75-99) mg/dL 04/04/21 04/04/21 04/04/21 Range/Units 04:06 07:08 11:52 WBC 17.6 H (3.8-10.6) k/uL RBC 3.77 L (4.30-5.90) m/uL Hgb 11.8 L (13.0-17.5) gm/dL Hct 34.9 L (39.0-53.0) % Neutrophils # 15.8 H (1.3-7.7) k/uL Lymphocytes # 0.8 L (1.0-4.8) k/uL BUN (9-20) mg/dL Creatinine (0.66-1.25) mg/dL Glucose (74-99) mg/dL POC Glucose (mg/dL) 191 H 208 H (75-99) mg/dL Assessment and Plan Assessment: Impression: Acute ST elevation myocardial infarction, umbilicated by cardiogenic shock status post stent placement and thrombectomy. And status post impella placement. Shortness of breath secondary to acute systolic congestive heart failure, History of severe COPD, possibly slightly active with acute minimal exacerbation. Acute hypoxic respiratory failure secondary to acute systolic congestive heart failure, and again possibly some component of COPD exacerbation. Acute on chronic kidney injury Severe left ventricular dysfunction. Type 2 diabetes. History of left nephrectomy Tobacco dependence syndrome Recommendation: Agree with cutting Lasix to 40 mg twice a day. Continue bronchodilators and steroids.added doxycycline 100 mg twice a day Transferred to a monitor bed on selective. Continue to monitor renal status as the patient is developing acute on chronic kidney injury Will continue to follow Time with Patient: Less than 30
[2021-04-04 16:49] LABS: Glucose,Whole Blood 375 mg/dL (75-99)
[2021-04-04 19:48] LABS: Glucose,Whole Blood 348 mg/dL (75-99)
[2021-04-04] MEDS ORDERED: INSULN ASP PRT/INSULIN ASPART 100 UNIT/ML 10 ML VIAL SQ SCH (21:00)
[2021-04-04] MEDS: QUEtiapine 25 MG TAB PO SCH (21:02)
[2021-04-04] MEDS: ATORVASTATIN 80 MG TAB PO SCH ×2 (21:02→21:07)
[2021-04-05 06:08] LABS: Glucose,Whole Blood 164 mg/dL (75-99)
[2021-04-05] MEDS: PANTOPRAZOLE 40 MG TABLET PO SCH (06:20)
[2021-04-05] MEDS: INSULIN ASPART (NovoLOG) 100 UNIT/ML VIAL SQ SCH ×4 (06:20→21:00)
[2021-04-05] MEDS ORDERED: INSULN ASP PRT/INSULIN ASPART 100 UNIT/ML 10 ML VIAL SQ SCH (07:30)
[2021-04-05] MEDS: IPRATROPIUM-ALBUTEROL 3 ML NEB INHALATION SCH ×3 (08:49→19:30)
[2021-04-05] MEDS: SYMBICORT 160-4.5 MCG INHALER INHALATION SCH ×2 (08:49→19:30)
[2021-04-05 09:25] LABS: Basophils % (A) 0 %; Eosinophils % (A) 0 %; HCT 38.6 % (39.0-53.0); HGB 12.5 gm/dL (13.0-17.5); Lymphocytes # (A) 1.6 k/uL (1.0-4.8); Lymphocytes % (A) 10 %; MCH 30.6 pg (25.0-35.0); MCHC 32.3 g/dL (31.0-37.0); MCV 94.8 fL (80.0-100.0); Mean Platelet Volume 10.6; Monocytes # (A) 1.2 k/uL (0-1.0); Monocytes % (A) 7 %; Neutrophils # (A) 12.8 k/uL (1.3-7.7); Neutrophils % (A) 81 %; Platelet Count 180 k/uL (150-450); RBC 4.07 m/uL (4.30-5.90); RDW 13.8 % (11.5-15.5); WBC 15.8 k/uL (3.8-10.6)
[2021-04-05 09:43] LABS: Calcium 9.1 mg/dL (8.4-10.2); Magnesium 2.1 mg/dL (1.6-2.3); Potassium 3.9 mmol/L (3.5-5.1)
[2021-04-05] MEDS: DOXYCYCLINE 100 MG CAP PO SCH ×2 (09:43→19:52)
[2021-04-05] MEDS: SODIUM BICARBONATE TAB 650 MG TAB PO SCH (09:43)
[2021-04-05] MEDS: INSULN ASP PRT/INSULIN ASPART 100 UNIT/ML 10 ML VIAL SQ SCH ×2 (09:43→20:59)
[2021-04-05] MEDS: METOPROLOL TARTRATE 50 MG TAB PO SCH ×2 (09:43→19:52)
[2021-04-05] MEDS: TICAGRELOR 90 MG TAB PO SCH ×2 (09:43→19:52)
[2021-04-05] MEDS: APIXABAN 2.5 MG TABLET PO SCH ×2 (09:43→19:52)
[2021-04-05] MEDS: predniSONE 20 MG TAB PO SCH (09:43)
[2021-04-05] MEDS: FUROSEMIDE 10 MG/ML 4 ML VIAL IV SCH (09:44)
--- NOTE | 2021-04-05 10:03 | P.PN ---
Subjective Progress Note Date: 04/05/21 This is a 59-year-old male seen in consultation because of acute kidney injury and chronic kidney disease He had acute FL and underwent cardiac catheterization and the his acute kidney injury is deemed to be from the contrast as well as the acute FL His creatinine continues to go up patient is though feeling better although still weak and tired Denies any shortness of breath at rest she is on room air. His blood pressure is in the 90s otherwise afebrile. He made 25 95 mL of urine output over the last 24 hours Objective - Vital Signs Vital signs: Vital Signs Temp 98.7 F 04/05/21 03:11 Pulse 88 04/05/21 09:00 Resp 20 04/05/21 03:11 BP 98/64 04/05/21 03:11 Pulse Ox 93 L 04/05/21 03:11 Intake & Output 04/04/21 04/05/21 04/05/21 18:59 06:59 18:59 Intake Total 770 180 Balance 770 180 Weight 103.9 kg Intake: Oral 650 180 Tube Feeding 120 Other: Voiding Method Toilet Toilet Urinal Urinal # Voids 1 ABP, PAP, CO, CI - Last Documented Arterial Blood Pressure 115/67 On examination is awake alert oriented comfortable HEENT exam no JVP neck is supple no facial asymmetry Lungs clear to auscultation with occasional bibasal are coarse crackle Good air entry bilaterally Heart sounds unremarkable for any murmur rub gallop Abdomen soft nontender Extremity no edema Awake alert oriented - Labs CBC & Chem 7: 04/05/21 08:45 04/05/21 08:45 Labs: Abnormal Lab Results - Last 24 Hours (Table) 04/04/21 04/04/21 04/04/21 Range/Units 11:52 16:47 19:46 WBC (3.8-10.6) k/uL RBC (4.30-5.90) m/uL Hgb (13.0-17.5) gm/dL Hct (39.0-53.0) % Neutrophils # (1.3-7.7) k/uL Monocytes # (0-1.0) k/uL Chloride (98-107) mmol/L BUN (9-20) mg/dL Creatinine (0.66-1.25) mg/dL Glucose (74-99) mg/dL POC Glucose (mg/dL) 208 H 375 H 348 H (75-99) mg/dL 04/05/21 04/05/21 04/05/21 Range/Units 06:06 08:45 08:45 WBC 15.8 H (3.8-10.6) k/uL RBC 4.07 L (4.30-5.90) m/uL Hgb 12.5 L (13.0-17.5) gm/dL Hct 38.6 L (39.0-53.0) % Neutrophils # 12.8 H (1.3-7.7) k/uL Monocytes # 1.2 H (0-1.0) k/uL Chloride 97 L (98-107) mmol/L BUN 75 H (9-20) mg/dL Creatinine 3.35 H (0.66-1.25) mg/dL Glucose 186 H (74-99) mg/dL POC Glucose (mg/dL) 164 H (75-99) mg/dL Assessment and Plan Assessment: 1. Acute kidney injury from cardiac shock, acute FL and cardiac catheterization. Creatinine continues to go up. Good urine output. Expect creatinine to improve soon 2. 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 Hypotension, on lisinopril 2.5 mg metoprolol 50 twice a day Recommendation 1. Status with the cardiology team regarding holding the lisinopril for right now and the dressing once creatinine stabilizes 2. Monitor labs urine output and blood pressure
--- NOTE | 2021-04-05 11:20 | P.PN ---
Subjective Progress Note Date: 04/05/21 61 years old location male with past medical history of type 2 diabetes, COPD, chronic kidney disease stage III secondary to solitary right kidney as well as diabetic kidney disease is 9 and creatinine 1.8, tobacco abuser, kidney donor came in to the hospital with chest discomfort at [facility]. EKG was suggestive of anterolateral ST VA and was transferred to [facility]. Patient underwent emergent heart catheter revealed proximal LAD occlusion status post thrombectomy and stenting of LAD by Dr. Christiansen. Patient also found to have chronic total occlusion of the right coronary artery. Patient continued to have chest discomfort postprocedure with significant ST segment elevation anteriorly. His blood pressure dropped and was noted to be in nonsustained V. tach and an Impala was placed through the right groin approach. Patient was evaluated in the ICU continued to have intermittent chest pain associated with nausea and vomiting. Patient's emesis was coffee ground in color. He denies any shortness of breath or abdominal pain. Patient denies any history of gastritis or alcohol abuse in the past. Vitals were reviewed patient is afebrile pulse 62 respiratory rate 19 blood pressure 116/94 and oxygen saturation 94% on 6 L. Labs reviewed patient has a leukocytosis of 15 which increased to 20 this morning. Sodium 140 potassium 3.3 status post repletion, chloride 108 bicarb 17 BUN 22 creatinine 2 glucose ranging from 232 to 375 Troponin elevated 0.04 date increased to 551 proBNP 569 albumin 3.6. EKG 03/31 suggestive of anterior infarct sinus tachycardia and right bundle branch block. Echocardiogram suggestive of severe concentric left ventricle hypertrophy with severe global hypokinesis of left ventricle. Left ventricular assist device noted EF not calculated 04/01 patient has been increasingly agitated since the Impala removal from the Lab. Wet of the review patient's afebrile pulse 82 respiratory rate of 25 blood pressure 113/81 and oxygen saturation 92 present 3 L. Ativan initiated at 0.5 mg every 6 hours with Haldol 0.5 mg every 6 hours. QT intervals 450. EKG ordered. Patient to remain on monitor worker for QT prolongation. Since agitation not controlled on Ativan and Haldol will be added 0.5 mg IM every 6 hours. Haldol can be initiated at 10 mg in the 12 hours for agitation. Patient can be started on Seroquel once patient is able to take oral medication. 04/02 patient examined at bedside. He appears restless. Patient received multiple doses of Haldol and Ativan at night. Geodon was initiated for PICC concern for agitation. Patient given one dose of Seroquel last night to help with agitation. Patient is not confused is able to answer questions appropriately but is noted to remove this oxygen intermittently. He does understand to the hospital and needs oxygen. She was noted to be hypoxic this morning at rest. Chest x-ray was obtained that suggested worsening bilateral lung infiltrate diffusely slightly greater on the left suggestive of atypical pulmonary edema and atypical pneumonia. IV Lasix 1 dose given. Pulmonary consulted. Solu-Medrol initiated. DuoNeb initiated at every 6 hours. Ativan was discontinued per pulmonary. We'll discontinue Geodon continue patient on Seroquel vitals are reviewed patient's afebrile. Pulse 88 respiratory rate 20 blood pressure 130/90 oxygen saturation currently 95% on 2 L labs reviewed today WBC is 15.3 improved from 20.5 hemoglobin is 11.6 sodium 134 BUN 47 creatinine 3.34 was sent from 2.94 yesterday. Nephrology recommends holding Lasix. Pulmonary recommends increasing Lasix to 40 IV twice a day. Continue normal saline at 50 mL per hour. Bicarb drip discontinued. 04/03: Patient remains in the intensive care unit, found sitting in a chair eating lunch, family at bedside. Agitation from yesterday is completely resolved. He is denying having any chest pain or palpitations. He states he is not sleeping because the bed is uncomfortable. He is ambulating without symptoms, no lightheadedness or dizziness. Trivedi Catheter Was discontinued yesterday and he has had good urine output. He is scheduled to transferred to [facility] cardiac stepdown unit today. WBC 15.3, hemoglobin 1.6. Potassium 3.4 replaced, BUN 58 creatinine 3.21. But sugars are elevated and patient resumed on home insulin 70/30 at reduced dose. 04/04: Patient remains in the intensive care unit waiting for a cardiac stepdown bed. Repeat echocardiogram this morning reveals a mass located in the apical portion of the left ventricle, EF between 20 and 25%. Chest x-ray reveals improving diffuse infiltrate, correlate for resolving congestive heart failure. Lasix has decreased to 40 mg IV twice daily and potassium replaced today, bicarbonate decreased to once daily. Patient is afebrile, heart rate in the 90s, blood pressure 97/70, pulse ox 94% on room air. Blood sugars are running 191-317 overnight. Solu-Medrol will be transitioned to prednisone with expected improvement in blood sugars and we will keep insulin at current dose. BUN is 66 and creatinine 3.29. WBC 17.6, hemoglobin 11.8, platelet count 172. monitor worker sinus rhythm. Patient's mental status has remained stable, alert and oriented 3. Patient started on oral doxycycline by pulmonary medicine. 04/05: Patient was evaluated at bedside sitting in chair, denies any chest pain or shortness of breath. Patient is afebrile, pulse 98, respirations 18, blood pressure 111/70, pulse ox 93% on room air. monitor worker shows sinus rhythm. WBC 15.8, hemoglobin 12.5, BUN 75, creatinine 3.35. Nephrology is on the case continue with hydration and lisinopril's currently on hold. He continues on Lasix 40 mg IV every 12 hours. Repeat labs in a.m. ROS Constitutional: Denies chills, Denies fever, endorses low energy Denies poor appetite, endorses frequent Denies weight loss Eyes: denies decreased vision, denies diplopia, denies discharge, denies pain Ears: deny: decreased hearing Ears, nose, mouth and throat: Denies dental pain, Denies headache, Denies nasal discharge, Denies nose pain Cardiovascular: Denies chest pain, Denies decreased exercise tolerance, Denies edema, Denies high blood pressure, Denies irregular heart beat, Denies palpitations, Denies paroxysmal nocturnal dyspnea, Denies rapid heart beat, Denies shortness of breath Respiratory: Denies congestion, Denies cough, Denies cough with sputum, endorses dyspnea Denies home oxygen, Denies wheezing Gastrointestinal: Denies abdominal pain, Denies change in bowel habits, Denies coffee ground emesis, Denies early satiety, Denies excessive gas, Denies heartburn, Denies hematemesis, Denies hematochezia, Denies loss of appetite, Denies nausea, Denies vomiting Genitourinary: Denies dysuria, Denies flank pain, Denies kidney stones, Denies menorrhagia, Denies urgency, Denies urinary frequency Musculoskeletal: Denies gait dysfunction, Denies limitation of motion, Denies morning stiffness, Denies muscle cramps Integumentary: Denies rash, Denies wounds, Denies brittle nails, Denies change in hair/nails, Denies darkening of skin Neurological: Denies balance difficulties, Denies change in speech, Denies double vision, Denies gait dysfunction, Denies loss of vision, Denies motor disturbance, Denies numbness, Denies paralysis, Denies paresthesias, Denies seizures Psychiatric: Denies anxiety, Denies depression Endocrine: Denies excessive sweating, Denies excessive thirst, noted high blood sugars Hematologic/Lymphatic: Denies easy bruising, Denies lymphadenopathy Physical exam - Constitutional General appearance: cooperative, no acute distress, obese, resting in chair at bedside - EENT Eyes: anicteric sclerae, PERRLA, normal appearance ENT: hearing grossly normal - Neck Neck: no lymphadenopathy, normal ROM, no other, no rigidity, no stridor, no thyromegaly - Respiratory Respiratory: bilateral: Decreased at bases. - Cardiovascular Rhythm: regular Heart sounds: normal: S1, S2 Abnormal Heart Sounds: no systolic murmur, no diastolic murmur, no rub, no S3 Gallop, no S4 Gallop, no click, no other - Gastrointestinal General gastrointestinal: normal bowel sounds, soft nontender - Integumentary Integumentary: no rash no hematoma noted - Neurologic Neurologic: No sensory or motor deficit - Musculoskeletal Musculoskeletal: strength equal bilaterally - Psychiatric Psychiatric: A&O x's 3, appropriate affect Assessment and plan #1 acute anterior STEMI complicated by cardiogenic shock, status post heart catheterization and stenting of the LAD proximally, status post Impella catheter and removal. Continue patient on atorvastatin 80 mg at bedtime, Lopressor 50 mg twice daily, cardiology consult appreciated. Patient was transferred to cardiac stepdown unit. #2 acute metabolic encephalopathy secondary to medications, resolved. Ativan discontinued, status post Haldol 0.5 mg 1 and Geodon 10 mg IM 1. Continue Seroquel 25 mg at bedtime. #3 acute kidney injury secondary to ATN secondary to acute VA /cardiogenic shock with contrast-induced nephropathy. Avoid nephrotoxic agent and nephrology is on the case. Oral hydration encouraged. #4 acute nausea and vomiting, resolved. Protonix switched to once daily oral. Continue to monitor for GI bleed. Zofran as needed, Reglan discontinued #5 diabetes type 2 uncontrolled with hyperglycemia. A1c 9.2. 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 Julio Fabian. Patient resumed on NovoLog mix 70/30 at 40 units twice daily, continue NovoLog scale before meals and at bedtime. #6 chronic kidney disease stage III be secondary to solitary right kidney status post left nephrectomy and diabetic kidney disease Baseline creatinine 1.8 #7 metabolic acidosis secondary to diabetic kidney disease and acute kidney injury #8 severe ischemic cardiomyopathy with acute systolic heart failure. Lasix to 40 mg twice daily, lisinopril on hold, Lopressor 50 mg twice daily. #9 COPD with exacerbation continue DuoNeb as needed for shortness of breath and Symbicort twice daily, prednisone now 40 mg daily and doxycycline added by pulmonary. #10 tobacco abuse patient counseled on smoking cessation would like to stop smoking #11Codestatus full code #12 DVT prophylaxis on Eliquis #13 GI prophylaxis on Protonix Discharge plan Home Impression and plan of care have been directed as dictated by the signing physician. Shara Lainez nurse practitioner acting as scribe for signing physician. Objective - Vital Signs Vital signs: Vital Signs Temp 98.7 F 04/05/21 03:11 Pulse 88 04/05/21 03:11 Resp 20 04/05/21 03:11 BP 98/64 04/05/21 03:11 Pulse Ox 93 L 04/05/21 03:11 Intake & Output 04/04/21 04/05/21 04/05/21 18:59 06:59 18:59 Intake Total 770 Balance 770 Weight 103.9 kg Intake: Oral 650 Tube Feeding 120 Other: Voiding Method Toilet Toilet Urinal Urinal # Voids 1 ABP, PAP, CO, CI - Last Documented Arterial Blood Pressure 115/67 - Labs CBC & Chem 7: 04/05/21 08:45 04/05/21 08:45 Labs: Abnormal Lab Results - Last 24 Hours (Table) 04/04/21 04/04/21 04/04/21 Range/Units 11:52 16:47 19:46 POC Glucose (mg/dL) 208 H 375 H 348 H (75-99) mg/dL 04/05/21 Range/Units 06:06 POC Glucose (mg/dL) 164 H (75-99) mg/dL
[2021-04-05 11:45] LABS: Glucose,Whole Blood 267 mg/dL (75-99)
--- NOTE | 2021-04-05 14:30 | PN ---
PROGRESS NOTE Mr. Littlejohn is a 61-year-old male who presented on Wednesday morning with an acute myocardial infarction. He underwent angioplasty and stenting of the proximal LAD and initial Impella placement. His repeat echocardiogram revealed an ejection fraction of 20% to 25% with apical thrombus and he was started on Eliquis. He is feeling better today. His breathing continues to be difficult with ambulation, but he has no rest dyspnea. He denies any dizziness or palpitations. He denies any nausea. He has a history of nephrectomy and kidney donation with a history of renal insufficiency. He continues to be at this time on Eliquis 2.5 mg twice a day, Brilinta 90 mg twice a day, Lipitor 80 mg daily, Lasix 40 mg IV q.12 hours, metoprolol tartrate 50 mg twice a day. His lisinopril is on hold because of his renal function. PHYSICAL EXAMINATION: His blood pressure is running in the 100s to 110s with a heart rate in the 90s. LUNGS: No wheezes or rales. HEART: Regular rate and rhythm S1, S2. No S3. No rub appreciated. ABDOMEN: Soft, nontender. EXTREMITIES: No edema. LAB DATA: BUN and creatinine of 75 and 3.35, potassium 3.9, hemoglobin 12.5. White blood cells of 15.8. IMPRESSION: 1. Status post anterior wall myocardial infarction with stenting of the LAD. 2. Severe ischemic cardiomyopathy. 3. Apical thrombus. 4. Renal failure. RECOMMENDATIONS: I will switch him to oral diuretics, continue the rest of his medical regimen. Will continue to hold his TIFFANY inhibitor. Will follow his renal function closely and, depending on his progress, further recommendations will be made. MMODL / IJN: [id number] /
[2021-04-05 16:55] LABS: Glucose,Whole Blood 156 mg/dL (75-99)
[2021-04-05] MEDS: FUROSEMIDE 40 MG TAB PO SCH (16:59)
[2021-04-05] MEDS: QUEtiapine 25 MG TAB PO SCH (19:52)
[2021-04-05] MEDS: ATORVASTATIN 80 MG TAB PO SCH (19:52)
[2021-04-05 20:24] LABS: Glucose,Whole Blood 268 mg/dL (75-99)
[2021-04-06 06:05] LABS: Glucose,Whole Blood 121 mg/dL (75-99)
[2021-04-06] MEDS: INSULIN ASPART (NovoLOG) 100 UNIT/ML VIAL SQ SCH ×4 (06:28→20:45)
[2021-04-06] MEDS: PANTOPRAZOLE 40 MG TABLET PO SCH (06:29)
[2021-04-06] MEDS: SYMBICORT 160-4.5 MCG INHALER INHALATION SCH ×2 (07:31→19:26)
[2021-04-06] MEDS: IPRATROPIUM-ALBUTEROL 3 ML NEB INHALATION SCH ×3 (07:31→19:25)
[2021-04-06 08:12] LABS: Basophils % (A) 0 %; Eosinophils # (A) 0.1 k/uL (0-0.7); Eosinophils % (A) 1 %; HCT 39.3 % (39.0-53.0); HGB 12.8 gm/dL (13.0-17.5); Lymphocytes # (A) 1.9 k/uL (1.0-4.8); Lymphocytes % (A) 14 %; MCH 30.7 pg (25.0-35.0); MCHC 32.6 g/dL (31.0-37.0); MCV 94.3 fL (80.0-100.0); Mean Platelet Volume 10.5; Monocytes # (A) 0.8 k/uL (0-1.0); Monocytes % (A) 6 %; Neutrophils # (A) 10.5 k/uL (1.3-7.7); Neutrophils % (A) 77 %; Platelet Count 176 k/uL (150-450); RBC 4.17 m/uL (4.30-5.90); RDW 13.8 % (11.5-15.5); WBC 13.5 k/uL (3.8-10.6)
[2021-04-06 08:22] LABS: Calcium 8.9 mg/dL (8.4-10.2); Magnesium 1.9 mg/dL (1.6-2.3); Potassium 3.7 mmol/L (3.5-5.1)
--- NOTE | 2021-04-06 08:23 | P.PN ---
Subjective Progress Note Date: 04/06/21 This is a 59-year-old male seen in consultation because of acute kidney injury and chronic kidney disease He had acute OR and underwent cardiac catheterization and the his acute kidney injury is deemed to be from the contrast as well as the acute OR His creatinine continues to go up patient is though feeling better although still weak and tired Denies any shortness of breath at rest she is on room air. His blood pressure is in the 90s otherwise afebrile. 24-hour urine output is not documented, day before yesterday was 259 5 mL, is anywhere the bathroom and urine output is not documented Objective - Vital Signs Vital signs: Vital Signs Temp 97.5 F L 04/06/21 03:18 Pulse 84 04/06/21 07:41 Resp 18 04/06/21 03:18 BP 98/62 04/06/21 03:18 Pulse Ox 95 04/06/21 07:31 Intake & Output 04/05/21 04/06/21 04/06/21 18:59 06:59 18:59 Intake Total 540 240 Output Total 450 Balance 90 240 Weight 103.7 kg Intake: Oral 540 240 Output: Urine 450 Other: Voiding Method Toilet Toilet Urinal # Voids 2 1 # Bowel Movements 1 ABP, PAP, CO, CI - Last Documented Arterial Blood Pressure 115/67 Examination is awake alert oriented comfortable able to walk without any difficulties A chin exam no JVP neck is supple no facial asymmetry Lungs clear to auscultation good air entry bilaterally Heart sounds unremarkable normal sinus rhythm Abdomen soft nontender Extremity exam was no edema Awake alert oriented - Labs CBC & Chem 7: 04/06/21 07:58 04/05/21 08:45 Labs: Abnormal Lab Results - Last 24 Hours (Table) 04/05/21 04/05/21 04/05/21 Range/Units 08:45 08:45 11:43 WBC 15.8 H (3.8-10.6) k/uL RBC 4.07 L (4.30-5.90) m/uL Hgb 12.5 L (13.0-17.5) gm/dL Hct 38.6 L (39.0-53.0) % Neutrophils # 12.8 H (1.3-7.7) k/uL Monocytes # 1.2 H (0-1.0) k/uL Chloride 97 L (98-107) mmol/L BUN 75 H (9-20) mg/dL Creatinine 3.35 H (0.66-1.25) mg/dL Glucose 186 H (74-99) mg/dL POC Glucose (mg/dL) 267 H (75-99) mg/dL 04/05/21 04/05/21 04/06/21 Range/Units 16:53 20:23 06:03 WBC (3.8-10.6) k/uL RBC (4.30-5.90) m/uL Hgb (13.0-17.5) gm/dL Hct (39.0-53.0) % Neutrophils # (1.3-7.7) k/uL Monocytes # (0-1.0) k/uL Chloride (98-107) mmol/L BUN (9-20) mg/dL Creatinine (0.66-1.25) mg/dL Glucose (74-99) mg/dL POC Glucose (mg/dL) 156 H 268 H 121 H (75-99) mg/dL 04/06/21 Range/Units 07:58 WBC 13.5 H (3.8-10.6) k/uL RBC 4.17 L (4.30-5.90) m/uL Hgb 12.8 L (13.0-17.5) gm/dL Hct (39.0-53.0) % Neutrophils # 10.5 H (1.3-7.7) k/uL Monocytes # (0-1.0) k/uL Chloride (98-107) mmol/L BUN (9-20) mg/dL Creatinine (0.66-1.25) mg/dL Glucose (74-99) mg/dL POC Glucose (mg/dL) (75-99) mg/dL Assessment and Plan Assessment: 1. Acute kidney injury from cardiac shock, acute OR and cardiac catheterization. Creatinine continues to go up. Good urine output. Expect creatinine to improve soon 2. 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 Pending labs his creatinine is stable or improved he can be discharged and will be followed up in our office within the next 2-3 days 2. No changes in medications otherwise
[2021-04-06] MEDS: APIXABAN 2.5 MG TABLET PO SCH ×2 (09:46→20:44)
[2021-04-06] MEDS: SODIUM BICARBONATE TAB 650 MG TAB PO SCH (09:46)
[2021-04-06] MEDS: METOPROLOL TARTRATE 50 MG TAB PO SCH ×2 (09:46→20:44)
[2021-04-06] MEDS: predniSONE 20 MG TAB PO SCH (09:46)
[2021-04-06] MEDS: DOXYCYCLINE 100 MG CAP PO SCH ×2 (09:46→20:44)
[2021-04-06] MEDS: TICAGRELOR 90 MG TAB PO SCH ×2 (09:47→20:44)
[2021-04-06] MEDS: FUROSEMIDE 40 MG TAB PO SCH ×2 (09:47→16:54)
[2021-04-06] MEDS: INSULN ASP PRT/INSULIN ASPART 100 UNIT/ML 10 ML VIAL SQ SCH ×2 (09:51→20:46)
--- NOTE | 2021-04-06 11:07 | PN ---
PROGRESS NOTE Mr. Littlejohn is a 61-year-old male who presented with an acute myocardial infarction with angioplasty and stenting of the LAD and placement of Impella catheter. His repeat echocardiogram revealed apical thrombus. He is feeling well this morning. His breathing is stable. He has been walking. He continues to be in sinus mechanism. He has no evidence of malignant arrhythmia. He denies any dizziness or palpitations. He denies any nausea. He continues to be on Eliquis 2.5 mg twice a day, Lipitor 80 mg daily, Lasix 40 mg twice a day, metoprolol tartrate 50 mg twice a day, Brilinta 90 mg twice a day. PHYSICAL EXAMINATION: Blood pressure is running in the high 90s, low 100s. Heart rate in the 80s. LUNGS: No wheezes or rales. HEART: Regular rate and rhythm. S1, S2. No S3. No rub or gallop appreciated. ABDOMEN: Soft, nontender. EXTREMITIES: No edema. LAB DATA: BUN and creatinine of 75 and 3.37, potassium 3.7, hemoglobin of 12.8. IMPRESSION: 1. Status post anterior wall myocardial infarction with stenting of the LAD. 2. Severe ischemic cardiomyopathy with apical thrombus. 3. Chronic kidney disease, status post kidney donation for transplant. RECOMMENDATIONS: Will continue on the present therapy, continue to follow his renal function, continue to increase his level activity. If he remains stable, I would expect he should be able to be discharged home in the next 24 to 48 hours. Patient will be evaluated regarding the possible need for a LifeVest. MMODL / EDELMIRAN: [id number] /
--- NOTE | 2021-04-06 11:23 | P.PN ---
Subjective Progress Note Date: 04/06/21 61 years old location male with past medical history of type 2 diabetes, COPD, chronic kidney disease stage III secondary to solitary right kidney as well as diabetic kidney disease is 9 and creatinine 1.8, tobacco abuser, kidney donor came in to the hospital with chest discomfort at [facility]. EKG was suggestive of anterolateral ST SC and was transferred to [facility] [place]. Patient underwent emergent heart catheter revealed proximal LAD occlusion status post thrombectomy and stenting of LAD by Dr. Christiansen. Patient also found to have chronic total occlusion of the right coronary artery. Patient continued to have chest discomfort postprocedure with significant ST segment elevation anteriorly. His blood pressure dropped and was noted to be in nonsustained V. tach and an Impala was placed through the right groin approach. Patient was evaluated in the ICU continued to have intermittent chest pain associated with nausea and vomiting. Patient's emesis was coffee ground in color. He denies any shortness of breath or abdominal pain. Patient denies any history of gastritis or alcohol abuse in the past. Vitals were reviewed patient is afebrile pulse 62 respiratory rate 19 blood pressure 116/94 and oxygen saturation 94% on 6 L. Labs reviewed patient has a leukocytosis of 15 which increased to 20 this morning. Sodium 140 potassium 3.3 status post repletion, chloride 108 bicarb 17 BUN 22 creatinine 2 glucose ranging from 232 to 375 Troponin elevated 0.04 date increased to 551 proBNP 569 albumin 3.6. EKG 03/31 suggestive of anterior infarct sinus tachycardia and right bundle branch block. Echocardiogram suggestive of severe concentric left ventricle hypertrophy with severe global hypokinesis of left ventricle. Left ventricular assist device noted EF not calculated 04/01 patient has been increasingly agitated since the Impala removal from the Lab. Wet of the review patient's afebrile pulse 82 respiratory rate of 25 blood pressure 113/81 and oxygen saturation 92 present 3 L. Ativan initiated at 0.5 mg every 6 hours with Haldol 0.5 mg every 6 hours. QT intervals 450. EKG ordered. Patient to remain on teletypesetter monitor for QT prolongation. Since agitation not controlled on Ativan and Haldol will be added 0.5 mg IM every 6 hours. Haldol can be initiated at 10 mg in the 12 hours for agitation. Patient can be started on Seroquel once patient is able to take oral medication. 04/02 patient examined at bedside. He appears restless. Patient received multiple doses of Haldol and Ativan at night. Geodon was initiated for PICC concern for agitation. Patient given one dose of Seroquel last night to help with agitation. Patient is not confused is able to answer questions appropriately but is noted to remove this oxygen intermittently. He does understand to the hospital and needs oxygen. She was noted to be hypoxic this morning at rest. Chest x-ray was obtained that suggested worsening bilateral lung infiltrate diffusely slightly greater on the left suggestive of atypical pulmonary edema and atypical pneumonia. IV Lasix 1 dose given. Pulmonary consulted. Solu-Medrol initiated. DuoNeb initiated at every 6 hours. Ativan was discontinued per pulmonary. We'll discontinue Geodon continue patient on Seroquel vitals are reviewed patient's afebrile. Pulse 88 respiratory rate 20 blood pressure 130/90 oxygen saturation currently 95% on 2 L labs reviewed today WBC is 15.3 improved from 20.5 hemoglobin is 11.6 sodium 134 BUN 47 creatinine 3.34 was sent from 2.94 yesterday. Nephrology recommends holding Lasix. Pulmonary recommends increasing Lasix to 40 IV twice a day. Continue normal saline at 50 mL per hour. Bicarb drip discontinued. 04/03: Patient remains in the intensive care unit, found sitting in a chair eating lunch, family at bedside. Agitation from yesterday is completely resolved. He is denying having any chest pain or palpitations. He states he is not sleeping because the bed is uncomfortable. He is ambulating without symptoms, no lightheadedness or dizziness. Trivedi Catheter Was discontinued yesterday and he has had good urine output. He is scheduled to transferred to [facility] cardiac stepdown unit today. WBC 15.3, hemoglobin 1.6. Potassium 3.4 replaced, BUN 58 creatinine 3.21. But sugars are elevated and patient resumed on home insulin 70/30 at reduced dose. 04/04: Patient remains in the intensive care unit waiting for a cardiac stepdown bed. Repeat echocardiogram this morning reveals a mass located in the apical portion of the left ventricle, EF between 20 and 25%. Chest x-ray reveals improving diffuse infiltrate, correlate for resolving congestive heart failure. Lasix has decreased to 40 mg IV twice daily and potassium replaced today, bicarbonate decreased to once daily. Patient is afebrile, heart rate in the 90s, blood pressure 97/70, pulse ox 94% on room air. Blood sugars are running 191-317 overnight. Solu-Medrol will be transitioned to prednisone with expected improvement in blood sugars and we will keep insulin at current dose. BUN is 66 and creatinine 3.29. WBC 17.6, hemoglobin 11.8, platelet count 172. teletypesetter monitor sinus rhythm. Patient's mental status has remained stable, alert and oriented 3. Patient started on oral doxycycline by pulmonary medicine. 04/05: Patient was evaluated at bedside sitting in chair, denies any chest pain or shortness of breath. Patient is afebrile, pulse 98, respirations 18, blood pressure 111/70, pulse ox 93% on room air. teletypesetter monitor shows sinus rhythm. WBC 15.8, hemoglobin 12.5, BUN 75, creatinine 3.35. Nephrology is on the case continue with hydration and lisinopril's currently on hold. He continues on Lasix 40 mg IV every 12 hours. Repeat labs in a.m. 04/06: Patient was seen this morning in bedside chair. He reports doing well this morning and has been up and about. Lasix was changed to oral 40 mg twice a day. Cardiology is anticipating discharge in the next 24-48 hours and discussed possibility of LifeVest on discharge. TIFFANY inhibitor continues to be on hold due to kidney function. Today white blood cells were 13.5, hemoglobin 12.8, BUN 75, creatinine 3.37 and nephrology continues to follow patient. Vital signs have been stable BP 100/67, pulse ox 95% on room air. ROS Constitutional: Denies chills, Denies fever, denies low energy Denies poor appetite, Denies weight loss Eyes: denies decreased vision, denies diplopia, denies discharge, denies pain Ears: deny: decreased hearing Ears, nose, mouth and throat: Denies dental pain, Denies headache, Denies nasal discharge, Denies nose pain Cardiovascular: Denies chest pain, Denies decreased exercise tolerance, Denies edema, Denies high blood pressure, Denies irregular heart beat, Denies palpitations, Denies paroxysmal nocturnal dyspnea, Denies rapid heart beat, Denies shortness of breath Respiratory: Denies congestion, Denies cough, Denies cough with sputum, endorses dyspnea Denies home oxygen, Denies wheezing Gastrointestinal: Denies abdominal pain, Denies change in bowel habits, Denies coffee ground emesis, Denies early satiety, Denies excessive gas, Denies heartburn, Denies hematemesis, Denies hematochezia, Denies loss of appetite, Denies nausea, Denies vomiting Genitourinary: Denies dysuria, Denies flank pain, Denies kidney stones, Denies menorrhagia, Denies urgency, Denies urinary frequency Musculoskeletal: Denies gait dysfunction, Denies limitation of motion, Denies morning stiffness, Denies muscle cramps Integumentary: Denies rash, Denies wounds, Denies brittle nails, Denies change in hair/nails, Denies darkening of skin Neurological: Denies balance difficulties, Denies change in speech, Denies double vision, Denies gait dysfunction, Denies loss of vision, Denies motor disturbance, Denies numbness, Denies paralysis, Denies paresthesias, Denies seizures Psychiatric: Denies anxiety, Denies depression Endocrine: Denies excessive sweating, Denies excessive thirst, noted high blood sugars Hematologic/Lymphatic: Denies easy bruising, Denies lymphadenopathy Physical exam - Constitutional General appearance: cooperative, no acute distress, obese, resting in chair at bedside - EENT Eyes: anicteric sclerae, PERRLA, normal appearance ENT: hearing grossly normal - Neck Neck: no lymphadenopathy, normal ROM, no other, no rigidity, no stridor, no thyromegaly - Respiratory Respiratory: bilateral: Decreased at bases. - Cardiovascular Rhythm: regular Heart sounds: normal: S1, S2 Abnormal Heart Sounds: no systolic murmur, no diastolic murmur, no rub, no S3 Gallop, no S4 Gallop, no click, no other - Gastrointestinal General gastrointestinal: normal bowel sounds, soft nontender - Integumentary Integumentary: no rash no hematoma noted - Neurologic Neurologic: No sensory or motor deficit - Musculoskeletal Musculoskeletal: strength equal bilaterally - Psychiatric Psychiatric: A&O x's 3, appropriate affect Assessment and plan #1 acute anterior STEMI complicated by cardiogenic shock, status post heart catheterization and stenting of the LAD proximally, status post Impella catheter and removal. Continue patient on atorvastatin 80 mg at bedtime, Lopressor 50 mg twice daily, cardiology consult appreciated. Patient was transferred to cardiac stepdown unit. #2 acute metabolic encephalopathy secondary to medications, resolved. Ativan discontinued, status post Haldol 0.5 mg 1 and Geodon 10 mg IM 1. Continue Seroquel 25 mg at bedtime. #3 acute kidney injury secondary to ATN secondary to acute SC /cardiogenic shock with contrast-induced nephropathy. Avoid nephrotoxic agent and nephrology is on the case. Oral hydration encouraged. #4 acute nausea and vomiting, resolved. Protonix switched to once daily oral. Continue to monitor for GI bleed. Zofran as needed, Reglan discontinued #5 diabetes type 2 uncontrolled with hyperglycemia. A1c 9.2. 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 Patient resumed on NovoLog mix 70/30 at 40 units twice daily, continue NovoLog scale before meals and at bedtime. #6 chronic kidney disease stage III be secondary to solitary right kidney status post left nephrectomy and diabetic kidney disease Baseline creatinine 1.8 #7 metabolic acidosis secondary to diabetic kidney disease and acute kidney in jury #8 severe ischemic cardiomyopathy with acute systolic heart failure. Lasix to 40 mg twice daily, lisinopril on hold, Lopressor 50 mg twice daily. #9 COPD with exacerbation continue DuoNeb as needed for shortness of breath and Symbicort twice daily, prednisone now 40 mg daily and doxycycline added by pulmonary. #10 tobacco abuse patient counseled on smoking cessation would like to stop carlie blackman #11Codestatus full code #12 DVT prophylaxis on Eliquis #13 GI prophylaxis on Protonix Discharge plan Home Impression and plan of care have been directed as dictated by the signing physician. Shara Lainez nurse practitioner acting as scribe for signing physician. Objective - Vital Signs Vital signs: Vital Signs Temp 97.7 F 04/06/21 09:53 Pulse 86 04/06/21 09:53 Resp 20 04/06/21 09:53 BP 100/67 04/06/21 09:53 Pulse Ox 95 04/06/21 09:53 Intake & Output 04/05/21 04/06/21 04/06/21 18:59 06:59 18:59 Intake Total 540 240 250 Output Total 450 Balance 90 240 250 Weight 103.7 kg Intake: IV 10 Invasive Line 8 10 Oral 540 240 240 Output: Urine 450 Other: Voiding Method Toilet Toilet Toilet Urinal # Voids 2 1 # Bowel Movements 1 ABP, PAP, CO, CI - Last Documented Arterial Blood Pressure 115/67 - Labs CBC & Chem 7: 04/06/21 07:58 04/06/21 07:58 Labs: Abnormal Lab Results - Last 24 Hours (Table) 04/05/21 04/05/21 04/05/21 Range/Units 11:43 16:53 20:23 WBC (3.8-10.6) k/uL RBC (4.30-5.90) m/uL Hgb (13.0-17.5) gm/dL Neutrophils # (1.3-7.7) k/uL BUN (9-20) mg/dL Creatinine (0.66-1.25) mg/dL Glucose (74-99) mg/dL POC Glucose (mg/dL) 267 H 156 H 268 H (75-99) mg/dL 04/06/21 04/06/21 04/06/21 Range/Units 06:03 07:58 07:58 WBC 13.5 H (3.8-10.6) k/uL RBC 4.17 L (4.30-5.90) m/uL Hgb 12.8 L (13.0-17.5) gm/dL Neutrophils # 10.5 H (1.3-7.7) k/uL BUN 75 H (9-20) mg/dL Creatinine 3.37 H (0.66-1.25) mg/dL Glucose 176 H (74-99) mg/dL POC Glucose (mg/dL) 121 H (75-99) mg/dL
[2021-04-06 12:00] LABS: Glucose,Whole Blood 78 mg/dL (75-99)
[2021-04-06 17:01] LABS: Glucose,Whole Blood 158 mg/dL (75-99)
[2021-04-06 20:03] LABS: Glucose,Whole Blood 425 mg/dL (75-99)
[2021-04-06 20:32] LABS: Glucose,Whole Blood 384 mg/dL (75-99)
[2021-04-06] MEDS: QUEtiapine 25 MG TAB PO SCH (20:44)
[2021-04-06] MEDS: ATORVASTATIN 80 MG TAB PO SCH (20:45)
[2021-04-07 06:11] LABS: Glucose,Whole Blood 103 mg/dL (75-99)
[2021-04-07] MEDS: INSULIN ASPART (NovoLOG) 100 UNIT/ML VIAL SQ SCH ×4 (06:22→21:10)
[2021-04-07 06:23] LABS: Calcium 9.3 mg/dL (8.4-10.2); Potassium 4.2 mmol/L (3.5-5.1)
[2021-04-07] MEDS: PANTOPRAZOLE 40 MG TABLET PO SCH (06:32)
[2021-04-07] MEDS: TICAGRELOR 90 MG TAB PO SCH ×2 (08:02→19:44)
[2021-04-07] MEDS: APIXABAN 2.5 MG TABLET PO SCH ×2 (08:02→19:45)
[2021-04-07] MEDS: METOPROLOL TARTRATE 50 MG TAB PO SCH ×2 (08:02→19:45)
[2021-04-07] MEDS: FUROSEMIDE 40 MG TAB PO SCH ×2 (08:02→15:49)
[2021-04-07] MEDS: SODIUM BICARBONATE TAB 650 MG TAB PO SCH (08:02)
[2021-04-07] MEDS: DOXYCYCLINE 100 MG CAP PO SCH ×2 (08:02→19:44)
[2021-04-07] MEDS: predniSONE 20 MG TAB PO SCH (08:02)
[2021-04-07] MEDS: IPRATROPIUM-ALBUTEROL 3 ML NEB INHALATION SCH ×3 (08:09→20:41)
[2021-04-07] MEDS: SYMBICORT 160-4.5 MCG INHALER INHALATION SCH ×2 (08:11→20:39)
[2021-04-07] MEDS: INSULN ASP PRT/INSULIN ASPART 100 UNIT/ML 10 ML VIAL SQ SCH ×2 (08:11→21:10)
--- NOTE | 2021-04-07 10:49 | P.DS ---
<Leesa Poole A - Last Filed: 04/07/21 14:11> Providers Expected date of discharge: 04/07/21 Hospital Course: 61 years old location male with past medical history of type 2 diabetes, COPD, chronic kidney disease stage III secondary to solitary right kidney as well as diabetic kidney disease is 9 and creatinine 1.8, tobacco abuser, kidney donor came in to the hospital with chest discomfort at [facility]. EKG was suggestive of anterolateral ST VA and was transferred to [facility]. Patient underwent emergent heart catheter revealed proximal LAD occlusion status post thrombectomy and stenting of LAD by Dr. Christiansen. Patient also found to have chronic total occlusion of the right coronary artery. Patient continued to have chest discomfort postprocedure with significant ST segment elevation anteriorly. His blood pressure dropped and was noted to be in nonsustained V. tach and an Impala was placed through the right groin approach. Patient was evaluated in the ICU continued to have intermittent chest pain associated with nausea and vomiting. Patient's emesis was coffee ground in color. He denies any shortness of breath or abdominal pain. Patient denies any history of gastritis or alcohol abuse in the past. Vitals were reviewed patient is afebrile pulse 62 resp iratory rate 19 blood pressure 116/94 and oxygen saturation 94% on 6 L. Labs reviewed patient has a leukocytosis of 15 which increased to 20 this morning. Sodium 140 potassium 3.3 status post repletion, chloride 108 bicarb 17 BUN 22 creatinine 2 glucose ranging from 232 to 375 Troponin elevated 0.04 date increased to 551 proBNP 569 albumin 3.6. EKG 03/31 suggestive of anterior infarct sinus tachycardia and right bundle branch block. Echocardiogram suggestive of severe concentric left ventricle hypertrophy with severe global hypokinesis of left ventricle. Left ventricular assist device noted EF not calculated 04/01 patient has been increasingly agitated since the Impala removal from the Lab. Wet of the review patient's afebrile pulse 82 respiratory rate of 25 blood pressure 113/81 and oxygen saturation 92 present 3 L. Ativan initiated at 0.5 mg every 6 hours with Haldol 0.5 mg every 6 hours. QT intervals 450. EKG ordered. Patient to remain on traffic monitor specialist for QT prolongation. Since agitation not controlled on Ativan and Haldol will be added 0.5 mg IM every 6 hours. Haldol can be initiated at 10 mg in the 12 hours for agitation. Patient can be started on Seroquel once patient is able to take oral medication. 04/02 patient examined at bedside. He appears restless. Patient received multiple doses of Haldol and Ativan at night. Geodon was initiated for PICC concern for agitation. Patient given one dose of Seroquel last night to help with agitation. Patient is not confused is able to answer questions appropriately but is noted to remove this oxygen intermittently. He does understand to the hospital and needs oxygen. She was noted to be hypoxic this morning at rest. Chest x-ray was obtained that suggested worsening bilateral lung infiltrate diffusely slightly greater on the left suggestive of atypical pulmonary edema and atypical pneumonia. IV Lasix 1 dose given. Pulmonary consulted. Solu-Medrol initiated. DuoNeb initiated at every 6 hours. Ativan was discontinued per pulmonary. We'll discontinue Geodon continue patient on Seroquel vitals are reviewed patient's afebrile. Pulse 88 respiratory rate 20 blood pressure 130/90 oxygen saturation currently 95% on 2 L labs reviewed today WBC is 15.3 improved from 20.5 hemoglobin is 11.6 sodium 134 BUN 47 creatinine 3.34 was sent from 2.94 yesterday. Nephrology recommends holding Lasix. Pulmonary recommends increasing Lasix to 40 IV twice a day. Continue normal saline at 50 mL per hour. Bicarb drip discontinued. 04/03: Patient remains in the intensive care unit, found sitting in a chair eating lunch, family at bedside. Agitation from yesterday is completely resolved. He is denying having any chest pain or palpitations. He states he is not sleeping because the bed is uncomfortable. He is ambulating without symptoms, no lightheadedness or dizziness. Trivedi Catheter Was discontinued yesterday and he has had good urine output. He is scheduled to transferred to the cardiac stepdown unit today. WBC 15.3, hemoglobin 1.6. Potassium 3.4 replaced, BUN 58 creatinine 3.21. But sugars are elevated and patient resumed on home insulin 70/30 at reduced dose. 04/04: Patient remains in the intensive care unit waiting for a cardiac stepdown bed. Repeat echocardiogram this morning reveals a mass located in the apical portion of the left ventricle, EF between 20 and 25%. Chest x-ray reveals improving diffuse infiltrate, correlate for resolving congestive heart failure. Lasix has decreased to 40 mg IV twice daily and potassium replaced today, bicarbonate decreased to once daily. Patient is afebrile, heart rate in the 90s, blood pressure 97/70, pulse ox 94% on room air. Blood sugars are running 191-317 overnight. Solu-Medrol will be transitioned to prednisone with expected improvement in blood sugars and we will keep insulin at current dose. BUN is 66 and creatinine 3.29. WBC 17.6, hemoglobin 11.8, platelet count 172. compliance monitor sinus rhythm. Patient's mental status has remained stable, alert and oriented 3. Patient started on oral doxycycline by pulmonary medicine. 04/05: Patient was evaluated at bedside sitting in chair, denies any chest pain or shortness of breath. Patient is afebrile, pulse 98, respirations 18, blood pressure 111/70, pulse ox 93% on room air. compliance monitor shows sinus rhythm. WBC 15.8, hemoglobin 12.5, BUN 75, creatinine 3.35. Nephrology is on the case continue with hydration and lisinopril's currently on hold. He continues on Lasix 40 mg IV every 12 hours. Repeat labs in a.m. 04/06: Patient was seen this morning in bedside chair. He reports doing well this morning and has been up and about. Lasix was changed to oral 40 mg twice a day. Cardiology is anticipating discharge in the next 24-48 hours and discussed possibility of LifeVest on discharge. TIFFANY inhibitor continues to be on hold due to kidney function. Today white blood cells were 13.5, hemoglobin 12.8, BUN 75, creatinine 3.37 and nephrology continues to follow patient. Vital signs have been stable BP 100/67, pulse ox 95% on room air. 04/07: Patient has been afebrile, heart rate 75, blood pressure 112/76, pulse ox 95% on room air. repeat BUN 79 and creatinine 3.25. Blood sugars are running between 103 and 425. discussed case with Dr. Valenzuela and patient is cleared for discharge from cardiology pending a LifeVest which has been ordered by case management rn. Patient will be discharged home today in stable condition. Assessment and plan #1 acute anterior STEMI complicated by cardiogenic shock, status post heart catheterization and stenting of the LAD proximally, status post Impella catheter and removal. #2 acute metabolic encephalopathy secondary to medications, resolved. #3 acute kidney injury secondary to ATN secondary to acute VA /cardiogenic shock with contrast-induced nephropathy. #4 acute nausea and vomiting, resolved. #5 diabetes type 2 uncontrolled with hyperglycemia. A1c 9.2. #6 chronic kidney disease stage III be secondary to solitary right kidney status post left nephrectomy and diabetic kidney disease Baseline creatinine 1.8 #7 metabolic acidosis secondary to diabetic kidney disease and acute kidney injury #8 severe ischemic cardiomyopathy with acute systolic heart failure. #9 COPD with exacerbation #10 tobacco abuse Discharge plan Home Impression and plan of care have been directed as dictated by the signing physician. Shara Lainez nurse practitioner acting as scribe for signing physician. Patient Condition at Discharge: Serious Plan - Discharge Summary New Discharge Prescriptions: New Apixaban [Eliquis] 2.5 mg PO BID 30 Days #60 tablet Metoprolol Tartrate [Lopressor] 50 mg PO BID #60 tab Nitroglycerin Sl Tabs [Nitrostat] 0.4 mg SUBLINGUAL Q5M PRN #25 tab PRN Reason: Chest Pain Sodium Bicarbonate Tab 650 mg PO DAILY #30 tab Budesonide-Formot 160-4.5 Mcg [Symbicort 160-4.5 Mcg Inhaler] 2 puff INHALATION RT-BID #1 inh Ticagrelor [Brilinta] 90 mg PO BID 30 Days #60 tab Ipratropium-Albuterol Nebulize [Duoneb 0.5 mg-3 mg/3 ml Soln] 3 ml INHALATION RT-TID #270 ml Furosemide [Lasix] 40 mg PO BID@0900,1600 #60 tab Atorvastatin [Lipitor] 80 mg PO HS #30 tab QUEtiapine [SEROquel] 25 mg PO HS #30 tab predniSONE 10 mg PO DAILY #5 tab Aspirin EC [Ecotrin Low Dose] 81 mg PO DAILY #30 tab Continue Pioglitazone [Actos] 15 mg PO DAILY Changed Insulin NPH Hum/Reg Insulin Hm [Novolin 70-30 Flexpen] 40 units SQ BID #0 Discontinued Atorvastatin [Lipitor] 40 mg PO DAILY amLODIPine [Norvasc] 10 mg PO DAILY Carvedilol [Coreg] 25 mg PO BID hydrALAZINE HCL [Apresoline] 25 mg PO TID Insulin NPH Hum/Reg Insulin Hm [Novolin 70-30 Flexpen] 60 units SQ DAILY Discharge Medication List Pioglitazone [Actos] 15 mg PO DAILY 04/01/21 [History] Ticagrelor [Brilinta] 90 mg PO BID 30 Days #60 tab 04/02/21 [Rx] Apixaban [Eliquis] 2.5 mg PO BID 30 Days #60 tablet 04/04/21 [Rx] Aspirin EC [Ecotrin Low Dose] 81 mg PO DAILY #30 tab 04/07/21 [Rx] Atorvastatin [Lipitor] 80 mg PO HS #30 tab 04/07/21 [Rx] Budesonide-Formot 160-4.5 Mcg [Symbicort 160-4.5 Mcg Inhaler] 2 puff INHALATION RT-BID #1 inh 04/07/21 [Rx] Furosemide [Lasix] 40 mg PO BID@0900,1600 #60 tab 04/07/21 [Rx] Insulin NPH Hum/Reg Insulin Hm [Novolin 70-30 Flexpen] 40 units SQ BID #0 04/07/21 [Rx] Ipratropium-Albuterol Nebulize [Duoneb 0.5 mg-3 mg/3 ml Soln] 3 ml INHALATION RT-TID #270 ml 04/07/21 [Rx] Metoprolol Tartrate [Lopressor] 50 mg PO BID #60 tab 04/07/21 [Rx] Nitroglycerin Sl Tabs [Nitrostat] 0.4 mg SUBLINGUAL Q5M PRN #25 tab 04/07/21 [Rx] QUEtiapine [SEROquel] 25 mg PO HS #30 tab 04/07/21 [Rx] Sodium Bicarbonate Tab 650 mg PO DAILY #30 tab 04/07/21 [Rx] predniSONE 10 mg PO DAILY #5 tab 04/07/21 [Rx] Follow up Appointment(s)/Referral(s): Belem Fabian MD [Medical Doctor] - 1-2 Days (OFFICES WOULD LIKE YOU TO CALL TO INITIATE A CONSULTATION A NEW PATIENT FOR FOLLOW UP.) Clark Deal MD [STAFF PHYSICIAN] - 1 Week (office will call with follow up appointment date and time) [facility], [NON-STAFF] - 1-2 Days Marbin Reed DO [STAFF PHYSICIAN] - 04/14/21 9:00 am (WEDNESDAY WITH JAYLEEN) Patient Instructions/Handouts: Heart Attack (GEN), Heart Failure (DC), Heart Healthy Diet (DC), Safe Use of Anticoagulants (DC), Safe Use of Antiplatelet Medication (DC), After Radial Heart Catheterization (GEN) Activity/Diet/Wound Care/Special Instructions: Cardiology Instructions After Cardiac Catheterization with Stent Placement: Anti-platelet Therapy. -In addition to aspirin, you will take ONE of the following anti-platelet medications daily. This will help prevent a clot from forming in your stent: Brilinta (ticagrelor) OR Plavix (clopidogrel) OR Effient (prasugrel) - Unfortunately your Brilinta medication is not covered by your insurance and is expensive. We are able to give you 1 free month of Brilinta - After 1 month, you will most likely be switched to Plavix. This prescription will be given to you when you follow up in the [facility]. -You will need to take your anti-platelet medicine every day for 12 months -Please consult your heart doctor before you stop this medicine. -They may want you to continue for a longer period of time. Statins -A statin medication lowers cholesterol levels in the blood. This helps slow the progression of heart disease. - Please take your statin medication as prescribed by your doctor. -You may be taking one of the following statins: Lipitor (atorvastatin) Do not stop taking these medicines without talking to your doctor. -Take all other medicines as directed by your doctor. Do not take any extra aspi rin or ibuprofen. They can increase your risk of bleeding. Many ewvq-rla-meworyf drugs contain aspirin. If you are unsure about what the drug contains, check with your pharmacist before taking it. -For mild discomfort, you may take plain Tylenol (acetaminophen). Follow dose directions, but do not take more than 4,000 mg of acetaminophen in 24 hours. Contact your doctor right away or go to the nearest hospital Emergency Room if you have: -Severe angina or chest pain. (This may be a sign of a problem with your stent.) -Excessive bruising, blood in urine/stool or black tarry stools. Healthy LifeStyle It is important to keep a heart healthy lifestyle. This can improve your long- term health and decrease your risk for heart attacks. -Quitting tobacco: the most important thing you can do to protect your health. -Managing your blood cholesterol, blood pressure, weight, and stress. -The importance of regular exercise. -Heart Healthy Diet: Include more plants in your diete. Lots of fruits and vegetables, nuts, beans, legumes, fish, whole grains, plant-based oils. -Avoid fried foods and animal fats and processed meats Discharge Disposition: HOME WITH HOME HEALTH SERVICES <Clayton Kay - Last Filed: 04/16/21 05:41> Providers Date of admission: 03/31/21 03:30 Attending physician: Belem Fabian MD Consults: 03/31/21 03:30 Consult Physician Urgent Consulting Provider: Clark Deal Consult Reason/Comments: stemi Do you want consulting provider notified?: Yes 03/31/21 04:51 Consult Physician Routine Consulting Provider: [facility] Consult Reason/Comments: Post Interventional patient Do you want consulting provider notified?: Already Contacted 03/31/21 06:04 Consult Physician Routine Consulting Provider: [facility] Consult Reason/Comments: Post Interventional patient Do you want consulting provider notified?: Already Contacted 03/31/21 09:59 Consult Physician Routine Consulting Provider: Marbin Reed Consult Reason/Comments: elevated creatinine and history of kidney disease Do you want consulting provider notified?: Already Contacted 04/02/21 11:04 Consult Physician Routine Consulting Provider: Julio Leach Consult Reason/Comments: shortness of breath, copd Do you want consulting provider notified?: Already Contacted Primary care physician: Korey Toledo Hospital Course: Greater than 35 minutes was utilized and coordinating patient's discharge.
--- NOTE | 2021-04-07 10:55 | P.PN ---
Subjective HISTORY OF PRESENTING ILLNESS This is a pleasant 61 old male with STEMI with ischemic cardiomyopathy. He states today is feeling well. Creatinine is stable, mildly improved from yesterday. He denies any shortness breath or chest pain. Complaining of back pain from sitting in the bed. Anxious to go home. PHYSICAL EXAMINATION Vital signs reviewed. CONSTITUTIONAL: No apparent distress. HEENT: Head is normocephalic. Pupils are equal, round. Sclerae anicteric. Mucous membranes of the mouth are moist. No JVD. No carotid bruit. CHEST EXAMINATION: Lungs are clear to auscultation. No chest wall tenderness is noted on palpation or with deep breathing. HEART EXAMINATION: Regular rate and rhythm. S1, S2 heard. No murmurs, gallops or rub. ABDOMEN: Soft, nontender. Positive bowel sounds. EXTREMITIES: 2+ peripheral pulses, no lower extremity edema and no calf tenderness. NEUROLOGIC EXAMINATION: Patient is awake, alert and oriented x3. ASSESSMENT 1. Anterior STEMI status post PCI of the LAD 2. Severe cardiomyopathy with apical thrombus, EF 20-25% 3. Chronic kidney disease status post donor transplant 4. Hypertension 5. Hyperlipidemia PLAN Patient's kidney function appears stable. He appears euvolemic from a heart failure standpoint and continue with heart failure regimen. Would try triple therapy for 1 month. We will set patient up for a LifeVest given ischemic cardiomyopathy. Patient stable for discharge. Objective - Vital Signs Vital signs: Vital Signs Temp 98.3 F 04/07/21 08:02 Pulse 90 04/07/21 08:27 Resp 20 04/07/21 08:02 BP 117/78 04/07/21 08:02 Pulse Ox 96 04/07/21 08:12 Intake & Output 04/06/21 04/07/21 04/07/21 18:59 06:59 18:59 Intake Total 608 250 Output Total 325 Balance 283 250 Weight 102.8 kg Intake: IV 10 10 Invasive Line 8 10 10 Oral 598 240 Output: Urine 325 Other: Voiding Method Toilet Toilet Toilet # Voids 2 1 ABP, PAP, CO, CI - Last Documented Arterial Blood Pressure 115/67 - Labs CBC & Chem 7: 04/06/21 07:58 04/07/21 05:42 Labs: Abnormal Lab Results - Last 24 Hours (Table) 04/06/21 04/06/21 04/06/21 Range/Units 16:56 20:01 20:31 BUN (9-20) mg/dL Creatinine (0.66-1.25) mg/dL POC Glucose (mg/dL) 158 H 425 H 384 H (75-99) mg/dL 04/07/21 04/07/21 Range/Units 05:42 06:09 BUN 79 H (9-20) mg/dL Creatinine 3.25 H (0.66-1.25) mg/dL POC Glucose (mg/dL) 103 H (75-99) mg/dL
[2021-04-07 11:49] LABS: Glucose,Whole Blood 135 mg/dL (75-99)
--- NOTE | 2021-04-07 14:00 | PN ---
PROGRESS NOTE Patient is seen for followup for acute kidney injury on top of chronic kidney disease. Renal function has stabilized with creatinine staying at about 3.2-3.3 mg/dL. EXAMINATION: Today patient is comfortable, denies any significant complaints. Blood pressure 112/76, heart rate 75 per minute. He is afebrile. Examination of the heart S1, S2. Examination of the lungs, decreased breath sounds at the bases. Abdomen is soft, nontender. Examination of lower extremities shows no significant edema. ROUND UP RING HAND exam grossly intact. LAB: Show sodium 137, potassium 4.2, chloride 98. CO2 is 30, BUN 79, creatinine 3.25. ASSESSMENT: 1. Acute kidney injury secondary to hypotension, contrast nephropathy, acute myocardial infarction. Renal function currently stable. 2. Chronic kidney disease with solitary kidney from kidney donation. 3. Hypotension status post discontinuation of lisinopril. PLAN: Patient can be discharged, follow up as outpatient in 2-3 days post discharge. Avoid use of TIFFANY inhibitors or angiotensin receptor blockers for now. Continue with the Lasix. MMODL / IJN: [id number] /
[2021-04-07 16:57] LABS: Glucose,Whole Blood 214 mg/dL (75-99)
[2021-04-07 18:26] VITALS: RESP 18
[2021-04-07] MEDS: QUEtiapine 25 MG TAB PO SCH (19:44)
[2021-04-07] MEDS: ATORVASTATIN 80 MG TAB PO SCH (19:45)
[2021-04-07 19:53] VITALS: BP 123/83; PULSE 90; TEMP 97.6
[2021-04-07 20:17] LABS: Glucose,Whole Blood 339 mg/dL (75-99)
== END 2021-04-07 21:16 | disposition home health service (06) | DRG 215 ==
LOC: EC 03:28 → 2SICU 03:30 → EC 03:39 → 2SICU 07:08 → 3SCARD 04-04 13:33
PROVIDERS: ADMIT Internal Medicine; ATTEND Internal Medicine
PROC: 5A0221D Assistance with Cardiac Output using Impeller Pump, Continuous (ICD-10-PCS; 2021-03-31)
PROC: 4A023N7 Measurement of Cardiac Sampling and Pressure, Left Heart, Percutaneous Approach (ICD-10-PCS; 2021-03-31)
PROC: B2111ZZ Fluoroscopy of Multiple Coronary Arteries using Low Osmolar Contrast (ICD-10-PCS; 2021-03-31)
PROC: B41F1ZZ Fluoroscopy of Right Lower Extremity Arteries using Low Osmolar Contrast (ICD-10-PCS; 2021-03-31)
PROC: 02HA3RZ Insertion of Short-term External Heart Assist System into Heart, Percutaneous Approach (ICD-10-PCS; principal; 2021-03-31 03:42)
PROC: 027034Z Dilation of Coronary Artery, One Artery with Drug-eluting Intraluminal Device, Percutaneous Approach (ICD-10-PCS; 2021-03-31 03:42)
PROC: 02C03ZZ Extirpation of Matter from Coronary Artery, One Artery, Percutaneous Approach (ICD-10-PCS; 2021-03-31 03:42)
PROC: 02PA3RZ Removal of Short-term External Heart Assist System from Heart, Percutaneous Approach (ICD-10-PCS; 2021-04-01)
DX: I21.02 ST elevation (STEMI) myocardial infarction involving left anterior descending coronary artery (principal); I49.01 Ventricular fibrillation; I50.23 Acute on chronic systolic (congestive) heart failure; J96.01 Acute respiratory failure with hypoxia; N17.0 Acute kidney failure with tubular necrosis; R57.0 Cardiogenic shock; G92.8 Other toxic encephalopathy; E87.2 Acidosis; I13.0 Hypertensive heart and chronic kidney disease with heart failure and stage 1 through stage 4 chronic kidney disease, or unspecified chronic kidney disease; I47.2 Ventricular tachycardia; J44.1 Chronic obstructive pulmonary disease with (acute) exacerbation; D72.829 Elevated white blood cell count, unspecified; E11.65 Type 2 diabetes mellitus with hyperglycemia; E11.22 Type 2 diabetes mellitus with diabetic chronic kidney disease; E78.5 Hyperlipidemia, unspecified; E87.6 Hypokalemia; F17.200 Nicotine dependence, unspecified, uncomplicated; N18.32 Chronic kidney disease, stage 3b; I25.10 Atherosclerotic heart disease of native coronary artery without angina pectoris; I25.5 Ischemic cardiomyopathy; I51.3 Intracardiac thrombosis, not elsewhere classified; N14.1 Nephropathy induced by other drugs, medicaments and biological substances; T50.8X5A Adverse effect of diagnostic agents, initial encounter; R41.0 Disorientation, unspecified; I95.9 Hypotension, unspecified; Z52.4 Kidney donor; Z79.01 Long term (current) use of anticoagulants; Z79.02 Long term (current) use of antithrombotics/antiplatelets; Z79.4 Long term (current) use of insulin; Z79.899 Other long term (current) drug therapy; Z82.3 Family history of stroke; Z82.49 Family history of ischemic heart disease and other diseases of the circulatory system; Z90.5 Acquired absence of kidney; Z88.6 Allergy status to analgesic agent; T46.4X5A Adverse effect of angiotensin-converting-enzyme inhibitors, initial encounter
CPT/HCPCS: 33990; 36415; 71045; 80048; 80053; 81001; 83036; 83615; 83735; 83880; 84145; 84484; 85025; 85027; 85384; 85610; 85730; 93005; 93306; 93308; 93458; 94640; 94760; 99291

== ENCOUNTER 2024-11-24 07:21 | Day surgery (SDC) | payer MEDICARE ==
[2024-11-23 10:17] VITALS: BMI 29.4
[2024-11-24] MEDS: SODIUM CHLORIDE 0.9% 500 ML 500 ML IV SCH (07:54)
[2024-11-24 07:59] VITALS: TEMP 97.5
[2024-11-24] MEDS: MIDAZOLAM 2 MG/2 ML VIAL IVP ONE (09:03)
[2024-11-24] MEDS: fentaNYL (PF) 50 MCG/1 ML VIAL IVP ONE ×3 (09:03→09:44)
[2024-11-24] MEDS: SODIUM CHLORIDE 0.9% 500 ML 500 ML IV ONE (09:04)
[2024-11-24] MEDS: LIDOCAINE 1% INJ 10MG/ML (20 ML MDV) SQ ONE (09:04)
[2024-11-24] MEDS ORDERED: ALTEPLASE 2 MG VIAL (CATHFLO) MISCELLANE STA (09:40)
[2024-11-24] MEDS: HEPARIN SODIUM,PORCINE 10,000 UNIT in SODIUM CHLORIDE 0.9% 1,000 ML IRRIGATION ONE (09:55)
[2024-11-24] MEDS: IOPAMIDOL-370 100ML BTL INTRATHECA ONE (09:55)
--- NOTE | 2024-11-24 10:46 | IR ---
EXAMINATION TYPE: IR fistula/abscess/sinus tract DATE OF EXAM: 11/24/2024 10:15 AM COMPARISON: Pre Operative Images if available both CT/MRI or plain film CLINICAL INDICATION: Male, 64 years old with history of RIGHT BRACHIAL FISTULA; TECHNIQUE: IR fistula/abscess/sinus tract, multiple fluoroscopic images provided for procedure. DAP: 4.38 mGym2 Gycm2 uGym2 cGycm2 or equivalent. FINDINGS: IMPRESSION: 1. Report was generated for administrative purposes only. 2. Please see the operative/procedural note for further details. [facility], , 11/24/2024 10:44 AM
[2024-11-24 11:13] VITALS: RESP 16
[2024-11-24 11:18] VITALS: BP 117/85; PULSE 96
--- NOTE | 2024-11-24 14:03 | P.HPIHPCON ---
History of Present Illness H&P Date: 11/24/24 Patient is a 64-year-old male who is on dialysis but having some issues at dialysis with potential clotting from the fistula. He presents today for a fistulogram for evaluation Consent for Procedure: I have explained the operation/procedure to the patient, including the risks, benefits, side effects, alternative therapies (including not receiving the proposed treatment or service), the likelihood of the patient achieving his/her goals, and potential recuperation problems for the procedure/sedation/analgesia, as well as any blood products, if indicated. I also explained to the patient the risks, benefits and side effects of the alternatives, as well as the risks rel ated to not receiving the proposed procedure, care, treatment, or services. Past Medical History Past Medical History: Coronary Artery Disease (CAD), Chest Pain / Angina, Heart Failure, COPD, Diabetes Mellitus, Hyperlipidemia, Hypertension, Myocardial Infarction (PR), Renal Disease Additional Past Medical History / Comment(s): Stage renal disease, currently on hemodialysis. Recent hospitalization November 2024- "I was numb from the waist down." "I couldn't walk.""They couldn't figure out what was wrong with me." Arthritis Last Myocardial Infarction Date:: Mar 27, 2021 History of Any Multi-Drug Resistant Organisms: None Reported Past Surgical History: Heart Catheterization, Heart Catheterization With Stent, Pacemaker Additional Past Surgical History / Comment(s): Hx -Kidney donor and the patient has a single kidney. Sciatic nerve burned in back. Past Anesthesia/Blood Transfusion Reactions: No Reported Reaction Date of Last Stent Placement:: 2021 Type of Cardiac Device: Permanent Pacemaker, AICD Device Placement Date:: 2020 Smoking Status: Former smoker - Past Family History Mother Family Medical History: Cancer Additional Family Medical History / Comment(s): Lung cancer Medications and Allergies Home Medications Medication Instructions Recorded Confirmed Type QUEtiapine [SEROquel] 25 mg PO HS #30 tab 04/07/21 11/24/24 Rx Atorvastatin [Lipitor] 40 mg PO QAM 10/17/24 11/24/24 History Gabapentin [Neurontin] 100 mg PO BID 10/17/24 11/24/24 History traZODone HCL [Desyrel] 50 mg PO HS 10/17/24 11/24/24 History Acetaminophen Tab [Tylenol] 650 mg PO Q6HR PRN tab 10/27/24 11/23/24 Rx INSULIN LISPRO (HumaLOG) [HumaLOG] 0 unit SQ ACHS each 10/27/24 11/24/24 Rx Ipratropium-Albuterol Nebulize 3 ml INHALATION RT-QID PRN each 10/27/2411/23 Rx [Duoneb 0.5 mg-3 mg/3 ml Soln] Metoprolol Succinate (ER) [Toprol 12.5 mg PO BID tab 10/27/24 11/24/24 Rx XL] Apixaban [Eliquis] 2.5 mg PO BID 11/23/24 11/23/24 History Brilinta (Unknown Dose) 1 dose PO BID 11/23/24 11/23/24 History Midodrine [ProAmatine] 5 mg PO SUTUTHSA@0911/23/24 11/24/24 History Midodrine [ProAmatine] 10 mg PO MOWEFR@0900 11/23/24 11/24/24 History Pantoprazole Sodium [Protonix] 40 mg PO QAM 11/23/24 11/24/24 History Torsemide [Demadex] 100 mg PO DAILY 11/24/24 11/24/24 History Allergies Allergy/AdvReac Type Severity Reaction Status Date / Time aspirin Allergy Anaphylaxis Verified 11/23/24 09:33 Mushroom Allergy Swelling Verified 11/23/24 09:33 NSAIDS (Non-Steroidal Allergy Anaphylaxis Verified 11/23/24 09:33 Anti-Inflamma Surgical - Exam Vital Signs Temp Pulse Resp BP Pulse Ox 97.5 F L 102 H 24 133/90 95 11/24/24 07:58 11/24/24 07:58 11/24/24 07:58 11/24/24 07:58 11/24/24 07:58 General is a pleasant but mildly anxious male in no acute distress. Right upper extremity brachial cephalic fistula appearsOkay okay they wanted another consult for her for us because they just think patent with adequate thrill in the midportion, there is extensive bruising and diminished thrill beyond this Assessment and Plan Assessment: Malfunctioning fistula End-stage renal disease Plan: Plan today for fistulogram with intervention. Risk and benefits discussed including onto bleeding, infection, injury to vessel. Seemingly understood and willing to proceed.
--- NOTE | 2024-11-24 14:09 | P.OP ---
Date of Procedure: 11/24/24 Description of Procedure: Preoperative diagnosis: Malfunctioning AV fistula Postoperative diagnosis: Same Procedure: [Right upper extremity ultrasound-guided cephalic vein access x 2 Fistulogram Percutaneous transluminal balloon angioplasty venous outflow 6 x 40, 7 x 40 Percutaneous transluminal balloon angioplasty venous inflow and anastomosis 5 x 40, 6 x 40 Moderate conscious station with personal monitoring certified RN administration x 47 minutes Surgeon: Deisy Trivedi D.O. EBL: 10 cc IV fluids: See records Urine output: Not measured Drains: None Complications: None immediately apparent Condition: Stable Operative indication and findings: Patient is a 64-year-old male with a malfunctioning AV fistula that has been there for 3 to 4 years. He has had intervention in the past but nothing recently. He is here today for fistulogram. Risks and benefits were discussed. He seemingly understands is willing to proceed. Procedure in detail: Patient was brought to the special suite and placed in supine position. The right upper extremity was prepped and draped in usual sterile fashion.A preprocedural timeout was performed, all parties were in agreement. Using the ultrasound, at the level above the elbow the cephalic vein was accessed with micro access needle and Seldinger technique was used to place 6 [place] sheath. A fistulogram was performed showing dilated portion of the proximal fistula with some narrowing and beaded appearance more distally. There is continuous flow through the upper extremity vein. No areas of occlusion. Manual pressure was held for a retrograde image there is significant stenosis proximally through the vessel from the anastomosis to the curve of the fistula. Initially beginning with the outflow, a wire was placed and subsequently a 6 x 40 and 7 x 40 balloon angioplasty was performed at the level of significant stenosis. This did help improve that beaded appearance with more inline flow appearance. Flow was improved distally through this and the decision was then made to go towards the inflow. The ultrasound was again utilized and vessels accessed in standard fashion Seldinger technique was used to place a 6 [place] sheath. There was significant stenosis proximally. Multiple catheters wires subsequently an 014 wire was utilized to cross the vessel into the brachial artery. Balloon angioplasty of this portion was performed with a 5 x 40 balloon as well as a 6 x 40 balloon. This did significantly improve the stenosis. The vessel although still relatively small in nature repeat images performed showing patent fistula with flow through the vessel. Catheters and wires were removed. The sheath was removed and [id number] sutures were placed. Patient is to go to dialysis today for visualization.
== END 2024-11-24 11:28 | disposition home or self-care (01) ==
LOC: CATHCVL 07:21
PROVIDERS: ATTEND Surgery
DX: I77.0 Arteriovenous fistula, acquired (principal); N18.6 End stage renal disease; I25.10 Atherosclerotic heart disease of native coronary artery without angina pectoris; I50.9 Heart failure, unspecified; I13.2 Hypertensive heart and chronic kidney disease with heart failure and with stage 5 chronic kidney disease, or end stage renal disease; J44.9 Chronic obstructive pulmonary disease, unspecified; E78.5 Hyperlipidemia, unspecified; E11.22 Type 2 diabetes mellitus with diabetic chronic kidney disease; I25.2 Old myocardial infarction; M19.90 Unspecified osteoarthritis, unspecified site; Z95.810 Presence of automatic (implantable) cardiac defibrillator; Z87.891 Personal history of nicotine dependence; Z80.1 Family history of malignant neoplasm of trachea, bronchus and lung; Z88.6 Allergy status to analgesic agent; Z79.01 Long term (current) use of anticoagulants; Z79.02 Long term (current) use of antithrombotics/antiplatelets; Z79.4 Long term (current) use of insulin; Z79.51 Long term (current) use of inhaled steroids; Z79.899 Other long term (current) drug therapy
CPT/HCPCS: 36902; C1894; C1769 ×5; C1725; J2250; J1644; J2003; Q9967; J3010